=== PATIENT | male | born 1965 | race Two or more races ===

== ENCOUNTER 2024-01-29 11:28 | Inpatient (IN) | payer MEDICARE, MEDICAID, SELFPAY ==
[2024-01-29] VITALS (13 sets, daily range): BP systolic 137–171; BP diastolic 64–80; PULSE 59–71; RESP 14–90; TEMP 36.6–37.1; O2SAT 93–100; BMI 22.1
--- NOTE | 2024-01-29 11:29 | PC.NURSE ---
pt arrived by ambulance at 1128 with possible stroke with left facial droop and left arm drift per medic. Last normal at 0400 when pt went to dialysis. Also pt was c/o headache per medic.
--- NOTE | 2024-01-29 11:31 | PC.NURSE ---
teleneuologist on monitor to evaluate pt
--- NOTE | 2024-01-29 11:32 | EKG_ITS ---
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: : 1965 Requested By: Edwardo De Los Santos Order Number: [id number] Reading MD: Edwardo De Los Santos Measurements Intervals [place] Rate: 68 P: 43 WV: 179 QRS: -31 QRSD: 97 T: 103 QT: 442 QTc: 473 Interpretive Statements SINUS RHYTHM INDETERMINATE AXIS INCOMPLETE RIGHT BUNDLE BRANCH BLOCK [90+ ms QRS DURATION, TERMINAL R IN V1/V2, 40+ ms S IN I/aVL/V4/V5/V6] POSSIBLE ANTERIOR MYOCARDIAL INFARCTION , PROBABLY OLD [30 ms Q WAVE IN V3/V4, OR R < 0.2 mV IN V4] Compared to ECG 02/25/2022 12:22:05 Indeterminate axis now present Incomplete right bundle-branch block now present Left-axis deviation no longer present Myocardial infarct finding still present /store/S0/[id number]/ecg/[id number].pdf
--- NOTE | 2024-01-29 11:32 | PD.EDNEURO ---
Neuro Symptoms Deficit-RME/HPI General Chief Complaint: Neuro Symptoms/Deficit Stated Complaint: STROKE Time Seen by Provider: 01/29/24 11:33 Arrival date/time: 01/29/24 11:29 RME / HPI RME / HPI Narrative: 58 year old male with history of ESRD on HD M/W/F, CAD s/p CABG, CHF, hypertension, IDDM, hyperlipidemia, anemia in CKD presents to the ED BIBA from home for evaluation of headache and altered mental status today. Per medics, daughter on scene reported patient woke up and complained of a headache. States he went to dialysis and completed his treatment. Noted after arriving home from dialysis the patients headache worsened. Medics report when they arrived on scene the patient was more responsive, answering questions. However en route became altered. Also noted to have left facial droop and left arm drift. Prehospital B/P . Related Data Home Medications ?Medication ?Instructions ?Recorded ?Confirmed aspirin 81 mg tablet,delayed 81 mg PO QDAY 12/05/17 01/29/24 release (Kendrick Low Dose Aspirin) furosemide 40 mg tablet 40 mg PO BID 05/01/19 01/29/24 amlodipine 5 mg tablet 10 mg PO QDAY 07/05/20 01/29/24 carvedilol 12.5 mg tablet (Coreg) 12.5 mg PO BID 07/05/20 01/29/24 atorvastatin 40 mg tablet 40 mg PO HS 02/10/21 01/29/24 insulin regular human 100 unit/mL See Rx Instructions .Route .COMPLEX 02/10/21 01/29/24 injection solution (Humulin R Regular U-100 Insulin) metolazone 2.5 mg tablet 5 mg PO QDAY 02/10/21 01/29/24 clonidine HCl 0.1 mg tablet 0.1 mg PO BID 01/29/24 01/29/24 insulin detemir U-100 100 unit/mL 45 unit subcut HS 01/29/24 01/29/24 subcutaneous solution (Levemir U-100 Insulin) isosorbide mononitrate 30 mg 30 mg PO QDAY 01/29/24 01/29/24 tablet,extended release 24 hr losartan 100 mg tablet 100 mg PO QDAY 01/29/24 01/29/24 vitamin B complex-vitamin C-folic 1 tab PO QDAY 01/29/24 01/29/24 acid 0.8 mg tablet (Emmanuelle-Florian) Allergies Allergy/AdvReac Type Severity Reaction Status Date / Time Penicillins Allergy Severe RASH,DIFF. Verified 04/27/22 19:53 BREATHING Review of Systems Review of Systems ROS Unobtainable: unobtainable due to mental status Past Medical History Past Medical History NEUROLOGIC: Positive Neurological Disorders and Peripheral Neuropathy CARDIAC: Positive Cardiac Disorders, Myocardial Infarction, Hypercholesterolemia, Congestive Heart Failure, Edema and Hypertension RESPIRATORY: Positive Pulmonary Edema GASTROINTESTINAL: Positive Gastrointestinal Disorders and Gastroesophageal Reflux Disease GENITOURINARY: Positive Genitourinary Disorders and Renal Disease MUSCULOSKELETAL: Positive Musculoskeletal Disorders and Arthritis ENDOCRINE: Positive Endocrine Disorders and Diabetes Mellitus Type 2 HEMATOLOGIC: Positive Blood Disorders and Anemia OTHER HISTORY: Positive Chicken Pox Family History FAMILY HISTORY: Positive Family Cardiac Disorders and Family Surgery Surgical History SURGICAL: Positive Coronary Artery Bypass Graft, Eye Surgery and Abdominal Surgery Social History SMOKING STATUS: Never smoker SUBSTANCE USE: does not use ED Exam Narrative Physical exam: GENERAL APPEARANCE: Initial exam is limited, patient is not following commands. HEENT: NC, AT. MMM. EOMI, clear conjunctiva, oropharynx clear. NECK: Supple without lymphadenopathy. No stiffness or restricted ROM. HEART: Normal rate and regular rhythm, normal S1/S1, no m/r/g LUNGS: CTAB, moving air well. No crackles or wheezes are heard. ABDOMEN: Soft, nontender, nondistended with good bowel sounds heard. BACK: No midline C/T/L spine pain or deformity, No CVAT, no obvious deformity. EXTREMITIES: Without cyanosis, clubbing or edema. NEUROLOGICAL: Initial exam is limited, patient is not following commands. Tone in all 4 extremities, subtle left facial droop at the lateral labial area. On reassessment patient is awake, alert, answering questions. Skin: Warm and dry without any rash. Course Quality Measures Suspected type of Stroke: Non Acute Last known well (date): 01/29/24 Last known well (time): 07:42 Tenecteplase given: Reason(s) TPA not given: Outside the time window not given stroke Orders Category Date Time Status Bedside Blood Glucose NOW Care 01/29/24 11:32 Completed [employer] NOW Care 01/29/24 11:32 Completed Continuous Pulse Oximetry NOW Care 01/29/24 11:32 Completed EKG (ED ONLY) *Do not use* NOW Care 01/29/24 11:32 Completed In and Out Catheter NEEDED Care 01/29/24 11:32 Active Insert IV NOW Care 01/29/24 11:32 Completed NIH Stroke Scale now Care 01/29/24 11:32 Active NPO NOW Care 01/29/24 11:32 Completed Nurse Swallow Screen x1 Care 01/29/24 11:32 Completed guaiac [Occult Blood,Stool (Nursing)] NOW Care 01/29/24 11:59 Active Consult to Neurology / Tele-Neurology Routine Cons 01/29/24 11:[address] angio stroke protocol Stat Exams 01/29/24 11:[address] stroke protocol Stat Exams 01/29/24 11:32 Completed EKG (ED Only) Stat Exams 01/29/24 11:32 Draft Alcohol, Blood Medical Stat Lab 01/29/24 12:09 Completed Ammonia Stat Lab 01/29/24 12:09 Completed CBC Stat Lab 01/29/24 11:38 Completed Comprehensive Metabolic Panel Stat Lab 01/29/24 11:38 Completed Drug Screen,Urine Stat Lab 01/30/24 04:18 Completed HCG Titer if Positive Stat Lab 01/29/24 11:38 Completed Magnesium Stat Lab 01/29/24 11:38 Completed Partial Thromboplastin Time Stat Lab 01/29/24 11:38 Completed Prothrombin Time with INR Stat Lab 01/29/24 11:38 Completed Troponin I Stat Lab 01/29/24 11:38 Completed Urinalysis Stat Lab 01/30/24 04:18 Completed Urine Culture Stat Lab 01/30/24 04:18 Received Aspirin [Ecotrin] Med 01/29/24 13:44 Discontinued 81 mg PO X1 ONE Clopidogrel [Plavix] Med 01/29/24 13:44 Discontinued 75 mg PO X1 ONE Ondansetron Inj [Zofran Inj] Med 01/29/24 11:32 Active 4 mg IV Q4HR PRN Oxygen Delivery NOW RT 01/29/24 11:32 Active Reevaluation(s) Reevaluation #1: Patient is much more awake, alert, answering questions. Reports he still has a headache. The weakness persists on exam, L>R. Time: 13:10 Vital Signs Vital signs: Vital Signs Pulse Rate 70 01/29/24 11:35 Neuro Symptoms / Deficit MDM Narrative MDM Narrative:: IJazmyne, lizzie scribing for and in the presence of Dr. Tapia. Patient data External records reviewed:: [facility] previous records (I reviewed ED visit on 04/27/2022 for bleeding to his left AVF) Clinical information provided by:: EMS Social determinants that could affect healthcare access:: none Patient has the following chronic illnesses:: ESRD on HD M/W/F, CAD s/p CABG, CHF, hypertension, IDDM, hyperlipidemia, anemia in CKD How is presenting disease/condition affected by chronic disease/condition?: exacerbated by Evaluation data The following diagnostics were reviewed and interpreted by me:: lab results and radiology exam(s) Lab and/or radiology exams considered but not ordered:: None Interpretation Summary: Ordering Physician: Edwardo Coe NP Date of Service: 01/29/24 Procedure(s): CT stroke protocol Accession Number(s): [id number] cc: Edwardo Coe NP; Chad Elder MD~ Examination: CT brain head without contrast. 2-D sagittal coronal reconstructions Date and time of exam:January 29, 2024 1134 hours INDICATIONS: Stroke alert, onset focal neurologic deficit, onset headache with left arm numbness and left arm weakness this morning CTDI: vol (mGy):47.7 DLP: (mGycm):925 Technique: Multiple CT axial sections of the brain have been obtained, 5 mm slice thickness. Contrast has not been administered. 2-D sagittal, coronal reconstructions have been obtained Low dose protocols were performed. One or more of the following dose reduction techniques were used; automated exposure control, adjustment of the mA and/or KV according to patient size, use of iterative reconstruction technique. Findings: No significant ventricular enlargement. Intra-axial or extra-axial hemorrhage density is not seen. No mass effect or midline shift Basal cisterns are not remarkable. Fourth ventricle is midline. Cranial vault intact. Impression: Negative for acute hemorrhage, mass effect or midline shift As clinically warranted, brain MRI follow-up would best assess for acute ischemic change Dictated By:Chad Elder MD Signed By:<Electronically signed by Chad Elder MD in OV>01/29/24 1142 Ordering Physician: Tanner Franco DO Date of Service: 01/29/24 Procedure(s): CT angio stroke protocol Accession Number(s): [id number] cc: Tanner Franco DO; Chad Elder MD; Sanchez Hughes MD~ Examination: CTA carotids with intravenous contrast CTA brain, head with intravenous contrast. 2-D sagittal, coronal reconstructions. 3-D reconstructions. Exam date and time: January 29, 2024 1148 hours INDICATIONS: Stroke alert, onset headaches with left arm numbness in left arm weakness this morning CTDI: vol (mGy) 16.2 DLP: (mGycm) 399 Technique: Multiple CTA axial brain, head carotid images post intravenous contrast injection 75 cc, Isovue-370. 2-D sagittal, coronal reconstructions. 3-D reconstructions, 3-D post processing including vascular maximum intensity projection images. Low dose protocols were performed. One or more of the following dose reduction techniques were used; automated exposure control, adjustment of the mA and/or KV according to patient size, use of iterative reconstruction technique. Findings: Carotid calcification at the right carotid bifurcation but no significant common carotid carotid bifurcation or internal carotid artery stenoses Dominant left vertebral artery with no critical stenoses Anterior cerebral middle cerebral branches demonstrate no large vessel occlusions There is incomplete filling of the distal P1 segment left posterior cerebral artery, clinical correlation advised IMPRESSION: Neck arterial stenoses Incomplete filling of the distal P1 segment left posterior cerebral artery, clinical correlation advised Dictated By:Chad Elder MD Signed By:<Electronically signed by Chad Elder MD in OV>01/29/24 1301 Medications / Prescriptions Medications or Prescriptions considered but not ordered:: None Medication administrations:: Medication Administration History Acetaminophen (Acetaminophen 325 Mg Tablet) 650 mg PO Q6H PRN PRN Reason: Pain 1-3 and/or Fever >100.1 Stop: 02/28/24 14:22 Last Admin: 01/29/24 20:27 Dose: 650 mg Documented By: ALEIDA Aspirin (Aspirin Ec 81 Mg Tabec) 81 mg PO QDAY [facility] Stop: 02/29/24 08:59 Last Admin: 01/30/24 08:16 Dose: 81 mg Documented By: TM Atorvastatin Calcium (Atorvastatin Calcium 20 Mg Tablet) 80 mg PO [facility] Stop: 02/28/24 14:59 Last Admin: 01/29/24 20:27 Dose: 80 mg Documented By: NC Clopidogrel Bisulfate (Clopidogrel Bisulfate 75 Mg Tablet) 75 mg PO QDAY [facility] Stop: 02/29/24 08:59 Last Admin: 01/30/24 08:16 Dose: 75 mg Documented By: TM Dextrose (Dextrose 50%-Water Inj 50 Ml Syringe) 25 ml IV Q15MIN PRN PRN Reason: BG 50-70 responsive npo pt Stop: 02/28/24 14:22 Last Admin: 01/30/24 05:51 Dose: 25 ml Documented By: ALEIDA Dextrose (Dextrose 50%-Water Inj 50 Ml Syringe) 50 ml IV Q15MIN PRN PRN Reason: BG <50 OR BG <70 & pt unresponsive Stop: 02/28/24 14:22 Fluconazole (Fluconazole 100 Mg Tablet) 200 mg PO QDAY [facility] Stop: 02/05/24 15:19 Last Admin: 01/30/24 08:16 Dose: 200 mg Documented By: Admin: 01/29/24 19:38 Dose: 200 mg Documented By: ALEIDA Comments: per MD nicholas to give now Glucagon (Glucagon Inj 1 Mg Vial) 1 mg IM Q15MIN PRN PRN Reason: BG <70, and no IV access Heparin Sodium (Porcine) (Heparin Sod Inj 5000 Unit/Ml Vial) 5,000 unit SC Q12HR [facility] Stop: 02/12/24 20:59 Last Admin: 01/29/24 20:51 Dose: 5,000 unit Documented By: ALEIDA Co-signed By: CCT Insulin Glargine (Insulin Glargine (Lantus) 5 Unit/0.05 Ml (Per 5 Units)) 45 unit SC [facility] Stop: 02/29/24 20:59 Insulin Human Lispro (Insulin Lispro (Admelog) 1 Unit/0.01 Ml Unit) 0 unit SC [facility]; Protocol Stop: 02/28/24 20:59 Last Admin: 01/30/24 07:34 Dose: Not Given Documented By: TM Non-Admin Reason: Per Protocol Insulin Human Lispro (Insulin Lispro (Admelog) 1 Unit/0.01 Ml Unit) 6 unit SC ACHS [facility] Stop: 02/29/24 11:29 Labetalol HCl (Labetalol Inj 5 Mg/Ml Vial 20 Ml) 10 mg IVP Q4HR PRN PRN Reason: Systolic >220 Stop: 02/28/24 14:56 Ondansetron HCl (Ondansetron Inj 2 Mg/Ml Inj 2 Ml) 4 mg IV Q4HR PRN PRN Reason: NAUSEA OR VOMITING Stop: 02/28/24 11:31 Sennosides (Senna Tablet) 1 tab PO QDAY PRN; Protocol PRN Reason: constipation Stop: 02/28/24 14:22 Sevelamer Carbonate (Sevelamer Carbonate 800 Mg Tablet) 2,400 mg PO TIDWM [facility] Stop: 02/28/24 17:29 Last Admin: 01/30/24 08:15 Dose: 2,400 mg Documented By: Admin: 01/29/24 19:14 Dose: 2,400 mg Documented By: NS Discontinued Medications Aspirin (Aspirin Ec 81 Mg Tabec) 81 mg PO X1 ONE Stop: 01/29/24 13:45 Last Admin: 01/29/24 14:27 Dose: 81 mg Documented By: DO Atorvastatin Calcium (Atorvastatin Calcium 20 Mg Tablet) 80 mg PO QDAY [facility] Stop: 02/28/24 14:59 Clopidogrel Bisulfate (Clopidogrel Bisulfate 75 Mg Tablet) 75 mg PO X1 ONE Stop: 01/29/24 13:45 Last Admin: 01/29/24 14:27 Dose: 75 mg Documented By: DO Fluconazole (Fluconazole 100 Mg Tablet) 400 mg PO QDAY [facility] Stop: 02/05/24 14:59 Last Admin: 01/29/24 15:38 Dose: Not Given Documented By: DO Non-Admin Reason: Cancelled by Provider Insulin Glargine (Insulin Glargine (Lantus) 5 Unit/0.05 Ml (Per 5 Units)) 30 unit SC HS [facility] Stop: 02/28/24 20:59 Last Admin: 01/29/24 21:02 Dose: 30 unit Documented By: ALEIDA Co-signed By: MLD Insulin Human Lispro (Insulin Lispro (Admelog) 1 Unit/0.01 Ml Unit) 0 unit SC Q6HR [facility]; Protocol Stop: 02/28/24 17:59 Last Admin: 01/29/24 18:40 Dose: Not Given Documented By: RONDA Non-Admin Reason: Not In Room Insulin Human Lispro (Insulin Lispro (Admelog) 1 Unit/0.01 Ml Unit) 0 unit SC ACHS [facility]; Protocol Stop: 02/28/24 20:59 Last Admin: 01/29/24 21:00 Dose: Not Given Documented By: ALEIDA Non-Admin Reason: Per Insulin Human Lispro (Insulin Lispro (Admelog) 1 Unit/0.01 Ml Unit) 10 unit SC X1 ONE Stop: 01/29/24 23:46 Last Admin: 01/29/24 23:55 Dose: 10 unit Documented By: ALEIDA Co-signed By: RANDALL Insulin Human Lispro (Insulin Lispro (Admelog) 1 Unit/0.01 Ml Unit) 10 unit SC X1 ONE Stop: 01/30/24 01:41 Last Admin: 01/30/24 01:58 Dose: 10 unit Documented By: RANDALL Co-signed By: CANDELARIA Insulin Human Regular (Insulin Hum Regular 1 Unit/0.01 Ml (Per Unit)) 10 unit IV X1 ONE Stop: 01/29/24 20:39 Last Admin: 01/29/24 22:47 Dose: Not Given Documented By: ALEIDA Non-Admin Reason: per Pantoprazole Sodium (Pantoprazole Inj 40 Mg Vial) 40 mg IVP QDAY [facility] Stop: 02/29/24 08:59 Potassium Chloride (Potassium Chloride 20 Meq Tabcr) 40 meq PO X1 ONE Stop: 01/30/24 08:02 Last Admin: 01/30/24 08:27 Dose: 40 meq Documented By: ISAAC See above Consultations Consultation(s) initiated? (list below): Yes Consultation #1 (Physician, Specialty, Details): I spoke with teleneurologist Dr. Franco. States she spoke with the dialysis nurse who reported seeing the patient walk out of the dialysis clinic at 07:42 this morning. Time: 12:50 Consultation #2 (Physician, Specialty, Details): I spoke with resident Dr. Crystal working with Dr. Benitez regarding admission. Discussed patients PMHx, HPI, ED course, exam findings, labs, and radiology results. The hospitalist agree to accept the patient for admission. Time: 13:40 Diagnosis Neuro Differential Diagnosis: subarachnoid hemorrhage, cerebrovascular accident and transient cerebral ischemia Most likely diagnosis given after review of the tests above:: AMS ESRD Headache Admission Indicated Admission indicated?: indicated Admission Request Was there a request for admission?: Yes Admission Attestation Admission request attestation: Discussed case with [] from Hospitalist service regarding admission. Discussed patients ED course, exam findings, labs, and radiology results. The Hospitalist [agrees,declines] to accept the patient for admission. Disposition Plan Disposition Plan: Admit Critical Care Time Critical Care Time Critical Care Time: Yes Total Critical Care Time (min.): 45 Attestation: The high probability of sudden, clinically significant deterioration in the patient's condition required the highest level of my preparedness to intervene urgently. The services I provided to this patient were to treat and/or prevent clinically significant deterioration. Services included the following: chart data review, reviewing nursing notes and/or old charts, documentation time, bridal sales consultant collaboration regarding findings and treatment options, medication orders and management, direct patient care, vital sign assessments and ordering, interpreting and reviewing diagnostic studies and lab tests. Aggregate critical care time includes only time during which I was engaged in work directly related to the patient's care, as described above, whether at bedside or elsewhere in the Emergency Department. It did not include time spent performing other reported procedures or the services of residents, students, nurses or physician assistants. Discharge Plan Plan Patient Disposition: Admit Acute Care w/in Hospital Problem List Clinical Impression: Altered mental status, Headache, ESRD (end stage renal disease) MD Attestation MD Attestation The patient was seen by the midlevel practitioner. I, the co-signing physician, was present during the entire ER visit. While I did not physically examine the patient, I was available for consultation as needed.
--- NOTE | 2024-01-29 11:45 | XR_ITS ---
Examination: CTA carotids with intravenous contrast CTA brain, head with intravenous contrast. 2-D sagittal, coronal reconstructions. 3-D reconstructions. Exam date and time: January 29, 2024 1148 hours INDICATIONS: Stroke alert, onset headaches with left arm numbness in left arm weakness this morning CTDI: vol (mGy) 16.2 DLP: (mGycm) 399 Technique: Multiple CTA axial brain, head carotid images post intravenous contrast injection 75 cc, Isovue-370. 2-D sagittal, coronal reconstructions. 3-D reconstructions, 3-D post processing including vascular maximum intensity projection images. Low dose protocols were performed. One or more of the following dose reduction techniques were used; automated exposure control, adjustment of the mA and/or KV according to patient size, use of iterative reconstruction technique. Findings: Carotid calcification at the right carotid bifurcation but no significant common carotid carotid bifurcation or internal carotid artery stenoses Dominant left vertebral artery with no critical stenoses Anterior cerebral middle cerebral branches demonstrate no large vessel occlusions There is incomplete filling of the distal P1 segment left posterior cerebral artery, clinical correlation advised IMPRESSION: Neck arterial stenoses Incomplete filling of the distal P1 segment left posterior cerebral artery, clinical correlation advised
[2024-01-29 11:55] LABS: Basophils % (Auto) 1 % (0-2.5); Eosinophils # (Auto) 0.4 Thou/mm3 (0.0-0.5); Eosinophils % (Auto) 6 % (0-10); Hematocrit 28.5 % (41.0-53.0); Hemoglobin 9.6 g/dL (13.5-16.0); Immature Granulocytes % (Auto) 0 % (0-0); Immature Granulocytes Auto 0.02 Thou/mm3 (0.00-0.00); Lymphocytes # (Auto) 0.6 Thou/mm3 (1.0-4.8); Lymphocytes % (Auto) 8 % (10-50); Mean Corpuscular HGB Conc 33.7 g/dl (31.0-37.0); Mean Corpuscular Hemoglobin 32.4 pg (25.0-35.0); Mean Corpuscular Volume 96 fL (80-100); Monocytes # (Auto) 0.5 Thou/mm3 (0.0-0.8); Monocytes % (Auto) 6 % (0-12); Neutrophils # (Auto) 6.1 Thou/mm3 (1.8-7.7); Neutrophils % (Auto) 80 % (37-80); Nucleated Red Blood Cell % 0 /100 WBC (0); Platelet Count 107 Thou/mm3 (140-440); RDW Standard Deviation 62.4 fL (35.1-43.9); Red Blood Count 2.96 Miln/mm3 (4.50-5.90); White Blood Count 7.7 Thou/mm3 (3.8-10.6)
[2024-01-29 12:08] LABS: INR 1.2 (0.9-1.3); Partial Thromboplastin Time 29.4 Seconds (22.0-36.0); Prothrombin Time 12.5 Seconds (9.0-12.2)
--- NOTE | 2024-01-29 12:08 | PC.NURSE ---
Addendum entered by Mimi Singh RN 01/29/24 12:10: teleneurologist called dialysis nurse and asked how pt was while there. Told by nurse that pt left at 0742 and walked out normal. Original Note: teleneurologist called dialysis nurse to ask how pt was there. Told by nurse that pt left about 0745 and walked out
[2024-01-29 12:15] LABS: Alanine Aminotransferase 36 U/L (10-49); Albumin, Serum 4.1 gm/dL (3.5-5.0); Albumin/Globulin Ratio 1.4 (1.2-2.2); Alkaline Phosphatase 270 U/L (46-116); Anion Gap 8 (7-16); Aspartate Amino Transferase 37 U/L (0-34); BUN/Creatinine Ratio 5 Ratio (12-20); Bilirubin,Total 1.1 mg/dL (0.3-1.2); Blood Urea Nitrogen 15 mg/dL (9-23); Calcium 9.3 mg/dL (8.3-10.6); Calcium (Corrected) 9.3 mg/dL (8.5-10.1); Carbon Dioxide 30.5 mMol/L (20.0-31.0); Chloride 97 mMol/L (98-107); Creatinine (Component) 3.1 mg/dL (0.6-1.3); Estimated Creatinine Clearance 20.5 mL/min (>60); Glucose 333 mg/dL (74-106); Magnesium 2.4 mg/dL (1.6-2.6); Osmolality,Calculated 283 (275-295); Potassium 3.4 mMol/L (3.4-5.1); Sodium 135 mMol/L (136-145); Total Protein 7.1 gm/dL (5.7-8.2); Troponin I < 0.020 ng/mL (0.0-0.045); eGFR 23 See Note
[2024-01-29 12:20] LABS: HCG Titer if Positive Negative
[2024-01-29 12:43] LABS: Ammonia 21 uMol/L (11-32)
--- NOTE | 2024-01-29 12:44 | PC.NURSE ---
pt states that he is cold and is requesting warm blanket. warm blanket given to pt at this time.
--- NOTE | 2024-01-29 12:47 | PC.NURSE ---
informed pt that we need ua sample. pt states that he does make some urine. asked pt if we can do in and out cath if he is unable to give sample. pt refused stating that he will give sample when able
--- NOTE | 2024-01-29 12:50 | PD.TNEURO ---
Tele Neuro Consultation Consultation Date 01/29/24 Most Recent Vital Signs Last Vital Signs Temp 98.7 F 01/29/24 12:45 Pulse 71 01/29/24 12:04 Resp 14 01/29/24 12:04 BP 171/80 H 01/29/24 12:04 Pulse Ox 98 01/29/24 12:15 O2 Del Method Room Air 01/29/24 12:04 Laboratory-Coagulation Panel PT 12.5 Seconds (9.0-12.2) H 01/29/24 11:38 INR 1.2 (0.9-1.3) 01/29/24 11:38 APTT 29.4 Seconds (22.0-36.0) 01/29/24 11:38 Consultation Narrative [facility] Tele[facility]rology Consult [facility] Patient Name:???Alexei Brown Date of :???1965 Identification Number:??? Date of Service:???01/29/2024 11:24:10 Diagnosis:?I63.89 - Cerebrovascular accident (CVA) due to other mechanism ([facility]) Impression: ?58 yo male with history of HTN, HLD, DM, ESRD on dialysis presenting to the ED with Left sided weakness and altered level of consciousness, TLKW 0742 per rn dialysis. NIHSS 20, though somewhat improving. CT Head negative for acute findings. CTA personally reviewed and negative for obvious LVO, will follow-up formal read. Concern for possible acute stroke v toxic/metabolic etiologies. He is outside the time window for thrombolytics. Plan to start Plavix 75 mg and continue ASA 81 mg for at least 21 days of DAPT. Admit for MRI Brain wo and stroke workup. Permissive HTN. Infectious/metabolic workup per primary team. Our recommendations are outlined below. Recommendations: ? Stroke/Telemetry Floor ? Neuro Checks ? Bedside Swallow Eval ? DVT Prophylaxis ? IV Fluids, Normal Saline ? Head of Bed 30 Degrees ? Euglycemia and Avoid Hyperthermia (PRN Acetaminophen) ? Initiate dual antiplatelet therapy with Aspirin 81 mg daily and Clopidogrel 75 mg daily. ? Antihypertensives PRN if Blood pressure is greater than 220/120 or there is a concern for End organ damage/contraindications for permissive HTN. If blood pressure is greater than 220/120 give labetalol PO or IV or Vasotec IV with a goal of 15% reduction in BP during the first 24 hours. Sign Out: ? Discussed with Emergency Department Provider Advanced Imaging:CTA Head and Neck Completed. LVO:No Patient in not a candidate for LUDWIG Metrics: Last Known Well: 01/29/2024 07:42:00 Dispatch Time: 01/29/2024 11:24:09 Arrival Time: 01/29/2024 11:29:00 Initial Response Time: 01/29/2024 11:27:14Symptoms: Left sided weakness, speech changes. Initial patient interaction: 01/29/2024 11:30:27 NIHSS Assessment Completed: 01/29/2024 11:43:23Patient is not a candidate for Thrombolytic. Thrombolytic Medical Decision: 01/29/2024 12:12:04Patient was not deemed candidate for Thrombolytic because of following reasons: LKW outside 4.[address] head showed no acute hemorrhage or acute core infarct. Primary Provider Notified of Diagnostic Impression and Management Plan on: 01/29/2024 12:50:17 History of Present Illness:Patient is a 58 year old Male. Patient was brought by EMS for symptoms of Left sided weakness, speech changes. Patient went to dialysis from [id number]. Daughter reports that he started to act like he wasn't present also unable to speak in complete sentences when she first saw him after he came back from dialysis at 0930. He looked very pale. Called to speak to his rn dialysis for additional history. Was speaking with nurse mid-treatment and seemed normal. He walked out of the dialysis center at 0742 and did not seem to have any difficulty. ? Past Medical History: ?Hypertension ?Diabetes Mellitus ?Hyperlipidemia Other PMH:? ESRD on dialysis Medications: No Anticoagulant use? Antiplatelet use:?Yes?ASA 81 mg Reviewed EMR for current medications Allergies:? Reviewed Social History: Unable To Obtain Due To Patient Status :?Patient Is Confused Family History: There is no family history of premature cerebrovascular disease pertinent to this consultation ROS : 14 Points Review of Systems was performed and was negative except mentioned in HPI. Past Surgical History: There Is No Surgical History Contributory To Today?s Visit ? Examination: BP(177/87),?Pulse(77),?Blood Glucose(327) 1A: Level of Consciousness - Arouses to minor stimulation?+ 1 1B: Ask Month and Age - Could Not Answer Either Question Correctly?+ 2 1C: Blink Eyes & Squeeze Hands - Performs Both Tasks?+ 0 2: Test Horizontal Extraocular Movements - Normal?+ 0 3: Test Visual Britton - No Visual Loss?+ 0 4: Test Facial Palsy (Use Grimace if Obtunded) - Partial paralysis (lower face)?+ 2 5A: Test Left Arm Motor Drift - No Effort Against Sunset?+ 3 5B: Test Right Arm Motor Drift - Drift, but doesn't hit bed?+ 1 6A: Test Left Leg Motor Drift - No Effort Against Sunset?+ 3 6B: Test Right Leg Motor Drift - No Effort Against Sunset?+ 3 7: Test Limb Ataxia (FNF/Heel-Almodovar) - Does Not Understand?+ 0 8: Test Sensation - Normal; No sensory loss?+ 0 9: Test Language/Aphasia - Mute/Global Aphasia: No Usable Speech/Auditory Comprehension?+ 3 10: Test Dysarthria - Mute/Anarthric?+ 2 11: Test Extinction/Inattention - No abnormality?+ 0 NIHSS Score:?20 Pre-Morbid Modified Amelia Scale:0 Points = No symptoms at all Spoke with :?Dr. Tapia This consult was conducted in real time using interactive audio and video technology. Patient was informed of the technology being used for this visit and agreed to proceed. Patient located in hospital and provider located at home/office setting. Patient is being evaluated for possible acute neurologic impairment and high probability of imminent or life-threatening deterioration. I spent total of 60 minutes providing care to this patient, including time for face to face visit via telemedicine, review of medical records, imaging studies and discussion of findings with providers, the patient and/or family. Dr Tanner Franco [facility] For Inpatient follow-up with [facility] physician please call [facility] at . As we are not an outpatient service for any post hospital discharge needs please contact the hospital for assistance. If you have any questions for the [facility] physicians or need to reconsult for clinical or diagnostic changes please contact us via [facility] at .
[2024-01-29 12:58] LABS: Alcohol, Blood Medical < 3.0 mg/dL (0-10.0)
--- NOTE | 2024-01-29 14:23 | ECHO_ITS ---
Transthoracic Echo Report Ht (in): 62 Wt (lb): 121 Exam Location: ER Status: Emergency Funeral Counselor: Alice Colón Indications: Procedure Performed: BP: 161 / 79 HR: 63 Rhythm: Sinus Technical Quality: Fair Contrast: Agitated Saline Total Dose (mL): MEASUREMENTS (Male / Female) Normal Values 2D ECHO LV Diastolic Diameter PLAX 5.3 cm 4.2 - 5.9 / 3.9 - 5.3 cm LV Systolic Diameter PLAX 3.3 cm IVS Diastolic Thickness 1.1 cm 0.6 - 1.0 / 0.6 - 0.9 cm LVPW Diastolic Thickness 1.1 cm 0.6 - 1.0 / 0.6 - 0.9 cm LV Relative Wall Thickness 0.4 LVOT Diameter 1.9 cm LA Volume Index 45.0 cm?/m? 16 - 28 cm?/m? Ascending Aorta Diameter 3.1 cm M-MODE Aortic Root Diameter MM 3.5 cm LA Systolic Diameter MM 4.3 cm LA Ao Ratio MM 1.2 AV Cusp Separation MM 2.4 cm DOPPLER AV Peak Velocity 200.0 cm/s AV Peak Gradient 16.0 mmHg AV Mean Gradient 7.0 mmHg AV Velocity Time Integral 43.3 cm LVOT Peak Velocity 145.0 cm/s LVOT Peak Gradient 8.4 mmHg LVOT Velocity Time Integral 27.5 cm LVOT Cardiac Index 3161.1 cm?/min?m? AV Area Cont Eq vti 1.8 cm? AV Area Cont Eq pk 2.1 cm? MV Peak Velocity 192.0 cm/s MV Peak Gradient 14.7 mmHg MV Mean Velocity 84.5 cm/s MV Mean Gradient 4.0 mmHg MV Area PHT 3.4 cm? MR Peak Velocity 384.0 cm/s MR Peak Gradient 59.0 mmHg Mitral E Point Velocity 159.0 cm/s Mitral A Point Velocity 62.0 cm/s Mitral E to A Ratio 2.6 LV E' Lateral Velocity 8.6 cm/s Mitral E to LV E' Lateral Ratio 18.5 LV E' Septal Velocity 4.5 cm/s Mitral E to LV E' Septal Ratio 35.7 TR Peak Velocity 326.0 cm/s TR Peak Gradient 42.5 mmHg FINDINGS Left Ventricle Normal left ventricular size, systolic function with no obvious regional wall motion abnormalities. Mild LVH. The ejection fraction is visually estimated at 60-65%. Right Ventricle The right ventricle is mildly dilated. Mild systolic dysfunction. The estimated right ventricular s ystolic pressure, 68mmHg. RAP 15. Left Atrium The left atrium is mildly dilated. Right Atrium The right atrium is moderately dilated. Atrial Septum An intravenous agitated saline injection indicated a PFO across the atrial septum with Valsalva rele ase by color flow Doppler interrogation. Aorta The aorta is normal by two-dimensional, color flow and Doppler interrogation. Mitral Valve The mitral valve is normal by two-dimensional, color flow and Doppler interrogation. There is mild m itral valve regurgitation. Aortic Valve The aortic valve is trileaflet and normal by two-dimensional, color flow and Doppler interrogation. There is trace aortic valve regurgitation. Tricuspid Valve The tricuspid valve is normal by two-dimensional, color flow and Doppler interrogation. There is mil d tricuspid valve regurgitation. Pulmonic Valve There is mild pulmonic valve regurgitation. Vessels The pulmonary artery appears normal. The inferior vena cava pulmonary and hepatic veins appear dilat ed. Pericardium The pericardium is normal by two-dimensional imaging. There is no significant pericardial effusion. CONCLUSIONS Indication: Stroke Positive bubble study with bubbles appearing after 5th cycle indicating possibe pulmonary AV shunt. Cannot rule out a PFO based on the study and recommend LINDA if high index of clinical suspicion. Normal LV size and function. Mild LVH. Grade II diastolic dysfunction. Estimated EF 60-65% Moderate Rv and RA dilatation. Estimated RVSP 68mmHg. Moderate to severe PAH. Mild LA dilatation. Mild MR, TR, PI. Trace AI. IVC dilated. Heath Hawkins (Electronically Signed) Final Date: 29 January 2024 17:26
[2024-01-29] MEDS: CLOPIDOGREL BISULFATE 75 MG TABLET PO (14:27)
[2024-01-29] MEDS: ASPIRIN EC 81 MG TABEC PO (14:27)
--- NOTE | 2024-01-29 14:29 | XR_ITS ---
Examination: Carotid arterial duplex scan, ultrasound. Date and time of exam: January 29, 2024 1815 hours INDICATIONS: Dizziness headaches numbness in the arms today Technique: Multiple sonographic images have been obtained of the carotid arteries and vertebral arteries, B-mode/grayscale imaging and Doppler spectral analysis and color flow Peak systolic and diastolic velocities have been recorded. Systolic diastolic ratios have been calculated. Findings: Right peak systolic velocities: Distal internal carotid artery peak systolic velocity is 0.8 M/sec Proximal internal carotid artery peak systolic velocity is 0.8 M/sec Carotid bifurcation peak systolic velocity is 0.8 M/sec External carotid artery peak systolic velocity is 1.0 M/sec Vertebral artery flow is antegrade. Left peak systolic velocities: Distal internal carotid artery peak systolic velocity is 0.5 M/sec Proximal internal carotid artery peak systolic velocity is 0.9 M/sec Carotid bifurcation peak systolic velocity is 1.2 M/sec External carotid artery peak systolic velocity is 1.1 M/sec Vertebral artery flow is antegrade Doppler waveform analysis demonstrates no spectral broadening Impression: Right internal carotid artery demonstrates 0-10% stenosis. Left internal carotid artery demonstrates 0-10% stenosis.
--- NOTE | 2024-01-29 14:35 | ESHP_ITS ---
<Statement entered by Gin Crystal MD - 01/30/24 18:00> Patient is a 58 y.o male w/ PMHx significant for CAD s/p CABG, CHF, ESRD on HD (MWF), HTN, insulin dependent DM, HLD who presented to the ED with acute confusion and headache and admitted for acute metabolic encepahlapathy vs stroke r/o. Patient states he woke up this AM at 3AM with a h/a which is consistent with his symptoms on dilaysis days, however, throughout the dialysis, patient's h/a worsened and felt out of it. Patient's family members noted he was not himself and confused and decided to call EMS to bring him to the ED. NIHSS per neurology was 20, and recommended full stroke w/o. Patient will be on Asa, Plavix, pending MRI wo contrast, Echo with bubble, speech and PT eval. 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 Patient will be started on a renal dose of Fluconozole. Will also consult Dr. Nguyen, for patient's ESRD. I discussed with and supervised the research program internship physician who took care of this patient. I personally saw and examined the patient and discussed the assessment and plan with the entire medicine team, including my attending , I agree with most of the assessment and plan as documented below Gin Crystal M.D. PGY-2 Documentation for date of: 01/29/24 HPI History of Present Illness Chief complaint: Headache, weakness History of present illness: 58-year-old male with past medical history of coronary artery disease s/p CABG (May 05, 2021), CHF, ESRD on HD (M/W/F), hypertension, insulin-dependent diabetes (unsure whether type I or type II), hyperlipidemia presents to the ED on 01/28 with acute change in mentation and worsening headache. Patient states that he went to dialysis session this morning around 4 AM and prior to the session he was having some headache near the back of his head. Patient completed dialysis session around 4.3 L of ultrafiltration and following the session went home and took his medications. At that point, patient started to feel worsening headache along with weakness and he ambulated out of his house to his ex-'s house which is on the same property and notified his daughter and ex- that he was not feeling well. Patient was then rushed to the ED where he presents now. Of note, patient had been to dialysis on Friday 01/26 and had additional fluid removed due to being told that he was volume overloaded on his last Thursday 01/25 session. Patient follows up with [facility] transplant center for kidney transplant; moreover, he has been told that he has cocci/fungal infection of the lungs along with a left-sided pulmonary nodule which will be biopsied on February 06, 2024 his next appointment. Medical history: As listed above Surgical history: 4X CABG Medications: Atorvastatin 40, clonidine 0.1 twice daily, losartan 100 daily, amlodipine 10 daily, carvedilol 12.5 twice daily, furosemide 40 twice daily, metolazone 5 daily, isosorbide mononitrate 30 daily, sevelamer 803 tablets 3 times daily and on insulin 45 units subcu daily Basaglar Allergies: Penicillin causes difficulty in breathing and rash Family history: Patient has extensive family history of heart disease, mother and father in their 70s from [place], uncle with [place], cousin with [place] and maternal side of family all have diabetes. Patient's brother also has ESRD but is status post transplant about 2 months ago secondary to diabetic nephropathy Social history: Patient lives in [place], lives in a subunit housing on the same property as his ex-, denies smoking, drinking or using any illicit drugs ROS: All 12 systems assessed and the patient denies unless otherwise stated in the HPI In the ED, patient presented hypertensive blood pressure 171/80 but rest of vitals normal. Pertinent lab findings included hemoglobin 9.6 (MCV 96), BUN 15, creatinine 3.1, glucose 333, elevated alk phos 278, troponin negative, urine alcohol negative. NIHSS score was 20, Head CT was negative for any acute process, head and neck CTA showed incomplete filling in the distal P1 segment of left posterior cerebellar artery and some neck arterial sclerosis. Patient will be admitted to the hospitalist team for stroke rule out versus metabolic encephalopathy; neurologist and yard supervisor cotton gin have been consulted to follow patient during hospital stay. Exam Vital Signs Temp Pulse Resp BP Pulse Ox O2 Del Method O2 Flow Rate 98.2 F 63 19 161/79 H 95 Nasal Cannula 2 01/29/24 13:12 01/29/24 13:12 01/29/24 13:12 01/29/24 13:12 01/29/24 13:12 01/29/24 13:12 01/29/24 13:12 Narrative Exam Physical Exam: GENERAL: Awake, answering questions appropriately, appears stated age HEENT: NC/AT. Moist mucosa. PERRLA. Extraocular movements intact but slow CARDIO: Heart RRR, no obvious murmurs, no JVD. PULM: No coughing or visible SOB. Lungs CTA B/L. GI: Abdomen soft, NT/ND, +BS. SKIN/MSK/EXT: Left brachiocephalic AV fistula patent. No wounds/discoloration/rashes/edema/amputations. +Pedal pulses present B/L. NEURO: Oriented x3, cranial nerves II to XII intact, muscle strength 3 out of 5 bilateral upper and lower extremities, air traffic control supervisor strength 3 out of 5, pronator drift negative, completed [id number], no focal neurologic deficit Results: Labs 01/29/24 11:38 01/29/24 11:38 Labs: Short CBC 01/29/24 Range/Units 11:38 WBC 7.7 (3.8-10.6) Thou/mm3 Hgb 9.6 L (13.5-16.0) g/dL Hct 28.5 L (41.0-53.0) % Plt Count 107 L (140-440) Thou/mm3 BMP 01/29/24 11:38 Sodium 135 L Potassium 3.4 Chloride 97 L Carbon Dioxide 30.5 BUN 15 Creatinine 3.1 H Glucose 333 H Calcium 9.3 Cardiac Enzymes 01/29/24 Range/Units 11:38 Troponin I < 0.020 (0.0-0.045) ng/mL Liver Function 01/29/24 Range/Units 11:38 Total Bilirubin 1.1 (0.3-1.2) mg/dL AST 37 H (0-34) U/L ALT 36 (10-49) U/L Alkaline Phosphatase 270 H (46-116) U/L Albumin 4.1 (3.5-5.0) gm/dL Quality Measures Quality Measures stroke Suspected type of Stroke: Non Acute Last known well (date): 01/29/24 Last known well (time): 07:42 Tenecteplase given: Reason(s) Tenecteplase not given: Outside the time window not given Rehab services: PT evaluation ordered VTE Prophylaxis: pharmaceutical Antithrombotic by day 2:: not indicated (describe) (Stroke has not been confirmed at this point, MR stroke protocol ordered) Statin ordered: <75 y/o high intensity dose Anticoagulation ordered for A-fib or flutter (current or hx): not indicated Medications Home Medications and Allergies Home Medications ?Medication ?Instructions ?Recorded ?Confirmed ?Type aspirin 81 mg tablet,delayed 81 mg PO QDAY 12/05/17 02/11/21 History release (Kendrick Low Dose Aspirin) insulin glargine 100 unit/mL (3 45 unit subcut QDAY 12/05/17 02/11/21 History mL) subcutaneous pen (Basaglar KwikPen U-100 Insulin) furosemide 40 mg tablet 40 mg PO BID 05/01/19 02/11/21 History amlodipine 5 mg tablet 10 mg PO QDAY 07/05/20 02/11/21 History calcium acetate 667 mg tablet 667 mg PO TID 07/05/20 02/11/21 History carvedilol 12.5 mg tablet (Coreg) 12.5 mg PO BID 07/05/20 02/11/21 History atorvastatin 40 mg tablet 40 mg PO HS 02/10/21 02/11/21 History insulin regular human 100 unit/mL See Rx Instructions .Route .COMPLEX 02/10/21 02/11/21 History injection solution (Humulin R Regular U-100 Insulin) metolazone 2.5 mg tablet 2.5 mg PO QDAY 02/10/21 02/11/21 History Allergies Allergy/AdvReac Type Severity Reaction Status Date / Time Penicillins Allergy Severe RASH,DIFF. Verified 04/27/22 19:53 BREATHING Visit Medications Acetaminophen (Acetaminophen 325 Mg Tablet) 650 mg PO Q6H PRN PRN Reason: Pain 1-3 and/or Fever >100.1 Stop: 02/28/24 14:22 Aspirin (Aspirin Ec 81 Mg Tabec) 81 mg PO QDAY SWATHI Stop: 02/29/24 08:59 Atorvastatin Calcium (Atorvastatin Calcium 20 Mg Tablet) 80 mg PO HS SWATHI Stop: 02/28/24 14:59 Dextrose (Dextrose 50%-Water Inj 50 Ml Syringe) 25 ml IV Q15MIN PRN PRN Reason: BG 50-70 responsive npo pt Stop: 02/28/24 14:22 Dextrose (Dextrose 50%-Water Inj 50 Ml Syringe) 50 ml IV Q15MIN PRN PRN Reason: BG <50 OR BG <70 & pt unresponsive Stop: 02/28/24 14:22 Glucagon (Glucagon Inj 1 Mg Vial) 1 mg IM Q15MIN PRN PRN Reason: BG <70, and no IV access Heparin Sodium (Porcine) (Heparin Sod Inj 5000 Unit/Ml Vial) 5,000 unit SC Q12HR SWATHI Stop: 02/12/24 20:59 Insulin Human Lispro (Insulin Lispro (Admelog) 1 Unit/0.01 Ml Unit) 0 unit SC Q6HR SWATHI; Protocol Stop: 02/28/24 17:59 Ondansetron HCl (Ondansetron Inj 2 Mg/Ml Inj 2 Ml) 4 mg IV Q4HR PRN PRN Reason: NAUSEA OR VOMITING Stop: 02/28/24 11:31 Pantoprazole Sodium (Pantoprazole Inj 40 Mg Vial) 40 mg IVP QDAY SWATHI Stop: 02/29/24 08:59 Sennosides (Senna Tablet) 1 tab PO QDAY PRN; Protocol PRN Reason: constipation Stop: 02/28/24 14:22 Discontinued Medications Aspirin (Aspirin Ec 81 Mg Tabec) 81 mg PO X1 ONE Stop: 01/29/24 13:45 Last Admin: 01/29/24 14:27 Dose: 81 mg Atorvastatin Calcium (Atorvastatin Calcium 20 Mg Tablet) 80 mg PO QDAY SWATHI Stop: 02/28/24 14:59 Clopidogrel Bisulfate (Clopidogrel Bisulfate 75 Mg Tablet) 75 mg PO X1 ONE Stop: 01/29/24 13:45 Last Admin: 01/29/24 14:27 Dose: 75 mg Assessment & Plan Plan 58-year-old male with past medical history of coronary artery disease s/p CABG (May 05, 2021), CHF, ESRD on HD (M/W/F), hypertension, insulin-dependent diabetes (unsure whether type I or type II), hyperlipidemia presents with acute change in mentation and worsening headache will be admitted to the hospitalist team for stroke rule out versus metabolic encephalopathy; neurologist and yard supervisor cotton gin have been consulted to follow patient during hospital stay. #Acute encephalopathy #Possible CVA versus TIA versus metabolic encephalopathy Patient presents with worsening headache in the back of his head along with weakness; did not lose consciousness per HPI The symptoms began before dialysis session at 4 AM and progressively worsened Per patient, he was able to ambulate out of his housing unit to get to his ex- 's house and notify them that he was feeling weak and had worsening headache In the ED, NIHSS score was 20 [address] head was negative CTA of head and neck showed incomplete filling of the distal P1 segment of the left posterior cerebral artery and neck arterial sclerosis Teleneurology was consulted and provided the recommendations Plan: MRI brain without contrast Echo with bubble study Aspirin and Plavix daily Ultrasound carotid Neurology, Dr. Crystal consulted appreciate recommendations Every 2 hour neurochecks Head of bed greater than 30 degrees Speech eval pending PT eval pending Permissive hypertension with as needed labetalol 10 mg #Coccidiomycosis infection #Possible left lung mass Patient apparently was told that he has coccidiomycosis also a left lobe nodule was noted during his appointment with [facility] transplant [facility] Plan: Start fluconazole 200 mg as the patient is ESRD Patient will need to follow-up with his appointment on February 05 with [facility] [place] #ESRD on HD (M/W/F) Patient has been on dialysis for about 3 years now; March 2021 start date Patient states that usually they take about 2.5 L of ultrafiltration per session Of note, patient went to dialysis on Friday 01/26 as on the 01/25 session did not take off enough fluid On 01/28 (today) they took out 4.3 L ultrafiltration per patient Patient follows up with Dr. Nguyen, nephrology Patient also apparently follows up with [facility]; next appointment is on February 05 as stated above Plan: Consulted Dr. Nguyen, appreciate recommendations Will continue sevelamer 800 mg 3 tablets 3 times daily Premeal #History of coronary artery disease s/p CABG #Hyperlipidemia #History of congestive heart failure Patient with significant history of coronary artery disease, CABG on May 05, [address] Saldana in [place], cardiology Patient is on guideline based medical therapy for congestive heart failure; losartan, carvedilol, isosorbide mononitrate Patient also takes atorvastatin 40 mg daily Plan: TTE with bubble study for stroke rule out will give us an idea of his ejection fraction Lipid panel in the morning Will assess ASCVD score #Hypertension Patient has known history of hypertension Takes the medications highlighted above along with clonidine 0.1 twice daily, amlodipine 10 mg daily, Lasix 40 mg twice daily Plan: Permissive hypertension as stated above We will hold home antihypertensive medications at this time #Insulin-dependent diabetes Patient was apparently diagnosed in his 30s and was started on insulin right away Unsure if this is type I versus type 2 diabetes mellitus Patient apparently takes 45 units of insulin Basaglar Plan: Sliding scale insulin Follow-up with A1c in the morning Hospital Management: Lines: PIV Bowel: Senna as needed Diet: Renal GI prophylaxis: Not required DVT prophylaxis: Heparin subcu Dispo: Stroke rule out pending imaging studies, MRI brain and TTE with bubble studies Code: DNR Patient seen and examined with attending Dr. Benitez and senior resident Dr. Marah Coppola, PGY-1 Attending Provider Attestation/Addendum I have examined the patient, reviewed labs and imaging findings, discussed the case with the resident(s), and reviewed entered orders. I agree with the plan of care as outlined in this note, with these additional summaries/recommendations: Patient is a 58-year-old male with a medical history of end-stage renal disease on hemodialysis Monday, primary hypertension, hyperlipidemia, diabetes mellitus type 2, pulmonary nodule, and valley fever who presents to [facility] emergency department on 01/29/2024 with strokelike symptoms. Patient admitted for CVA rule out # Strokelike symptoms # CVA rule out Was deemed not a tPA candidate and NIH SS score of [address] was negative for acute hemorrhage, mass effect or midline shift CTA H&N did not reveal LVO but was significant for incomplete filling of the distal P1 segment left posterior cerebral artery Teleneurology was consulted, recommends admission for CVA rule out Risk factor screening with TSH, lipid panel, and A1c Order MRI brain, echocardiogram with bubble, PT eval, and swallow evaluation Consult in-house neurology, recommendations appreciated Start dual antiplatelet therapy with aspirin and clopidogrel, start high intensity statin Order EEG Allow permissive hypertension for first 24 hours up to systolic blood pressure of 220 # End-stage renal disease On hemodialysis Monday Avoid nephrotoxic agents and renally dose medications Per patient currently on transplant list Consult nephrology Dr. Nguyen to resume hemodialysis while hospitalized # Primary hypertension: Resume home antihypertensives after permissive hypertension # Diabetes mellitus type 2: A1c ordered. Start basal bolus insulin. Target blood sugar of 140-180 while hospitalized # coccidioidomycosis:Resume fluconazole [address] Benitez
--- NOTE | 2024-01-29 16:06 | PC.NURSE ---
report allen [place] on tele floor. pt to go to room 260
--- NOTE | 2024-01-29 18:06 | PC.CC ---
[employer] approached by asset management coordinator, to assist in locating contact information for pts family to consent for treatment. Pt Alexei Brown is a 58 yr old male to ED for possible stroke. Upon review of pts historical documentation, there is no information for family listed. Pts ex Marion Brown is identified as person to notify on pts chart, no answer per staff. Pt is on dialysis. [id number] [facility] spoke with Rajni with [facility]-pt is not a pt of that dialysis site.
--- NOTE | 2024-01-29 18:34 | ESCONSULT_ITS ---
HPI Data of Consult Patient: new to practice Consult date: 01/29/24 Requesting Physician: Joshua Benitez MD Admitting Provider: Joshua Benitez MD Attending Provider: Joshua Benitez MD Primary Care Provider: Sanchez Hughes MD Consult Narrative Reason for consult: LINDA, Possible AV shunt History of present illness: HISTORY OF PRESENT ILLNESS : 58-year-old male with past medical history of coronary artery disease s/p 4 vessel CABG (May 05, 2021 in [place]), chronic diastolic CHF [60-65] ESRD on HD (M/W/F), essential hypertension, insulin-dependent diabetes (unsure whether type I or type II), hyperlipidemia presents to the ED on 01/28 with acute change in mentation and worsening headache. Patient states that he went to dialysis session this morning around 4 AM and prior to the session he was having some headache near the back of his head. Patient completed dialysis session around 4.3 L of ultrafiltration and following the session went home and took his medications. At that point, patient started to feel worsening headache along with weakness and he ambulated out of his house to his ex-'s house which is on the same property and notified his daughter and ex- that he was not feeling well. Patient was then rushed to the ED where he presents now. Patient denies any chest pain but endorses intermittent shortness of breath. Patient also has a 3 pillow orthopnea with PND. Patient says he had a stress test 1 month ago and reports that it was normal. Of note, patient had been to dialysis on Friday 01/26 and had additional fluid removed due to being told that he was volume overloaded on his last Thursday 01/25 session. Patient follows up with [facility] transplant center for kidney transplant; moreover, he has been told that he has cocci/fungal infection of the lungs along with a left-sided pulmonary nodule which will be biopsied on February 06, 2024 his next appointment. Transthoracic echocardiogram completed on 01/28 findings include: Positive bubble study with bubbles appearing after 5th cycle indicating possibe pulmonary AV shunt. Cannot rule out a PFO based on the study and recommend LINDA if high index of clinical suspicion. Normal LV size and function. Mild LVH. Grade II diastolic dysfunction. Estimated EF 60-65% Moderate Rv and RA dilatation. Estimated RVSP 68mmHg. Moderate to severe PAH. Mild LA dilatation. Mild MR, TR, PI. Trace AI. IVC dilated. ED course: BP 170/80, labs significant for Hb 9.6, BUN 15, CR 3.1, ALP 278, troponin negative. Head CT was negative for any hemorrhage, mass effect or midline shift, head and neck CTA showed incomplete filling in the distal P1 segment of left [employer] with some neck arterial sclerosis. Patient was admitted for stroke rule out versus metabolic encephalopathy. Cardiology was consulted for moderate to severe PAH along with positive bubble study. HOME MEDICATIONS: ? Amlodipine 10 Mg p.o. daily ? ASA 81 Mg p.o. daily ? Atorvastatin 40 Mg p.o. at bedtime ? B complex vitamin ? Coreg 12.5 Mg p.o. twice daily ? Clonidine 0.1 mg p.o. twice daily ? Furosemide 40 Mg p.o. twice daily ? Insulin - Detemir 45 units SC at bedtime ? Insulin HR ? Isosorbide mononitrate 30 Mg p.o. daily ? Losartan 100 Mg p.o. daily ? Metolazone 5 Mg p.o. daily cc:: cc: Joshua Benitez MD Review of Systems Review of Systems Narrative Review of Systems: GENERAL: Denies fever/chills or diaphoresis. HEENT: Denies headaches or visual changes. Denies discharge. Neuro: Denies unusual weakness or difficulty speaking. CARDIO:as above PULM: as above GI: Denies abdominal pain, N/V/C/D. Reports having BMs. URO: Denies buring/itching/pain/urinary changes. MSK/EXT/SKIN: Denies joint/skeletal/muschle pain, issues/changes in upper or lower extremities, itchiness, or superficial pain. PSYCH: Cooperative, pleasant mood & affect. The rest of the review of systems is otherwise negative. Past Medical History Past Medical History Comments PMH COMMENT: Past medical history: ? CAD s/p four-vessel CABG ? Chronic systolic congestive heart failure [60-65%] ? ESRD on HD ? Essential hypertension ? IDDM ? 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 QUit years ago Illicit drug use: Denies Social History Note: lives with Family History: Father- [place] at 75 Mother - stroke at 75 Exam Vital Signs Temp Pulse Resp BP Pulse Ox O2 Del Method O2 Flow Rate 98.0 F 61 18 145/70 H 95 Nasal Cannula 3 01/29/24 16:42 01/29/24 16:42 01/29/24 16:42 01/29/24 16:42 01/29/24 16:42 01/29/24 16:42 01/29/24 16:42 Narrative Exam Constitutional Alert, oriented x 3 and comfortable. Young male HEENT Vision grossly intact. Patent nares. Trachea midline Respiratory Midline sternotomy scar noted and decreased AE b/l Cardiovascular S1 and S2 audible, RRR. 3/6 systolic murmur at apex with radiation to axilla, no carotid bruit. JVD not assessed Abdominal Tense, distended and non tender to palpation in all quadrants. Umbilicus everted, BS + Genitourinary No bladder tenderness, no flank pain. Normal to palpation Musculoskeletal Extremities tone within normal limits. No LE edema. Neurological CN II - XII grossly intact. Extremity motor and sensation grossly intact. Skin Warm, dry and intact. Left brachiocephalic fistula Psychiatric Patient has good affect, is cooperative Results Labs 01/29/24 11:38 01/29/24 11:38 Labs: Short CBC 01/29/24 Range/Units 11:38 WBC 7.7 (3.8-10.6) Thou/mm3 Hgb 9.6 L (13.5-16.0) g/dL Hct 28.5 L (41.0-53.0) % Plt Count 107 L (140-440) Thou/mm3 BMP 01/29/24 11:38 Sodium 135 L Potassium 3.4 Chloride 97 L Carbon Dioxide 30.5 BUN 15 Creatinine 3.1 H Glucose 333 H Calcium 9.3 Cardiac Enzymes 01/29/24 Range/Units 11:38 Troponin I < 0.020 (0.0-0.045) ng/mL Liver Function 01/29/24 Range/Units 11:38 Total Bilirubin 1.1 (0.3-1.2) mg/dL AST 37 H (0-34) U/L ALT 36 (10-49) U/L Alkaline Phosphatase 270 H (46-116) U/L Albumin 4.1 (3.5-5.0) gm/dL Quality Measures Quality Measures stroke Suspected type of Stroke: Non Acute Last known well (date): 01/29/24 Last known well (time): 07:42 Tenecteplase given: Reason(s) Tenecteplase not given: Outside the time window not given Rehab services: PT evaluation ordered VTE Prophylaxis: not indicated Antithrombotic by day 2:: ordered Statin ordered: <75 y/o high intensity dose Anticoagulation ordered for A-fib or flutter (current or hx): not indicated Medications Home Medications and Allergies Home Medications ?Medication ?Instructions ?Recorded ?Confirmed ?Type aspirin 81 mg tablet,delayed 81 mg PO QDAY 12/05/17 01/29/24 History release (Kendrick Low Dose Aspirin) furosemide 40 mg tablet 40 mg PO BID 05/01/19 01/29/24 History amlodipine 5 mg tablet 10 mg PO QDAY 07/05/20 01/29/24 History carvedilol 12.5 mg tablet (Coreg) 12.5 mg PO BID 07/05/20 01/29/24 History atorvastatin 40 mg tablet 40 mg PO HS 02/10/21 01/29/24 History insulin regular human 100 unit/mL See Rx Instructions .Route .COMPLEX 02/10/21 01/29/24 History injection solution (Humulin R Regular U-100 Insulin) metolazone 2.5 mg tablet 5 mg PO QDAY 02/10/21 01/29/24 History clonidine HCl 0.1 mg tablet 0.1 mg PO BID 01/29/24 01/29/24 History insulin detemir U-100 100 unit/mL 45 unit subcut HS 01/29/24 01/29/24 History subcutaneous solution (Levemir U-100 Insulin) isosorbide mononitrate 30 mg 30 mg PO QDAY 01/29/24 01/29/24 History tablet,extended release 24 hr losartan 100 mg tablet 100 mg PO QDAY 01/29/24 01/29/24 History vitamin B complex-vitamin C-folic 1 tab PO QDAY 01/29/24 01/29/24 History acid 0.8 mg tablet (Emmanuelle-Florian) Allergies Allergy/AdvReac Type Severity Reaction Status Date / Time Penicillins Allergy Severe RASH,DIFF. Verified 04/27/22 19:53 BREATHING Visit Medications Acetaminophen (Acetaminophen 325 Mg Tablet) 650 mg PO Q6H PRN PRN Reason: Pain 1-3 and/or Fever >100.1 Stop: 02/28/24 14:22 Aspirin (Aspirin Ec 81 Mg Tabec) 81 mg PO QDAY SWATHI Stop: 02/29/24 08:59 Atorvastatin Calcium (Atorvastatin Calcium 20 Mg Tablet) 80 mg PO HS SWATHI Stop: 02/28/24 14:59 Clopidogrel Bisulfate (Clopidogrel Bisulfate 75 Mg Tablet) 75 mg PO QDAY SWATHI Stop: 02/29/24 08:59 Dextrose (Dextrose 50%-Water Inj 50 Ml Syringe) 25 ml IV Q15MIN PRN PRN Reason: BG 50-70 responsive npo pt Stop: 02/28/24 14:22 Dextrose (Dextrose 50%-Water Inj 50 Ml Syringe) 50 ml IV Q15MIN PRN PRN Reason: BG <50 OR BG <70 & pt unresponsive Stop: 02/28/24 14:22 Fluconazole (Fluconazole 100 Mg Tablet) 200 mg PO QDAY SWATHI Stop: 02/05/24 15:19 Glucagon (Glucagon Inj 1 Mg Vial) 1 mg IM Q15MIN PRN PRN Reason: BG <70, and no IV access Heparin Sodium (Porcine) (Heparin Sod Inj 5000 Unit/Ml Vial) 5,000 unit SC Q12HR SWATHI Stop: 02/12/24 20:59 Insulin Human Lispro (Insulin Lispro (Admelog) 1 Unit/0.01 Ml Unit) 0 unit SC Q6HR SWATHI; Protocol Stop: 02/28/24 17:59 Labetalol HCl (Labetalol Inj 5 Mg/Ml Vial 20 Ml) 10 mg IVP Q4HR PRN PRN Reason: Systolic >220 Stop: 02/28/24 14:56 Ondansetron HCl (Ondansetron Inj 2 Mg/Ml Inj 2 Ml) 4 mg IV Q4HR PRN PRN Reason: NAUSEA OR VOMITING Stop: 02/28/24 11:31 Sennosides (Senna Tablet) 1 tab PO QDAY PRN; Protocol PRN Reason: constipation Stop: 02/28/24 14:22 Sevelamer Carbonate (Sevelamer Carbonate 800 Mg Tablet) 2,400 mg PO TIDWM SWATHI Stop: 02/28/24 17:29 Discontinued Medications Aspirin (Aspirin Ec 81 Mg Tabec) 81 mg PO X1 ONE Stop: 01/29/24 13:45 Last Admin: 01/29/24 14:27 Dose: 81 mg Atorvastatin Calcium (Atorvastatin Calcium 20 Mg Tablet) 80 mg PO QDAY [facility] Stop: 02/28/24 14:59 Clopidogrel Bisulfate (Clopidogrel Bisulfate 75 Mg Tablet) 75 mg PO X1 ONE Stop: 01/29/24 13:45 Last Admin: 01/29/24 14:27 Dose: 75 mg Fluconazole (Fluconazole 100 Mg Tablet) 400 mg PO QDAY [facility] Stop: 02/05/24 14:59 Last Admin: 01/29/24 15:38 Dose: Not Given Pantoprazole Sodium (Pantoprazole Inj 40 Mg Vial) 40 mg IVP QDAY [facility] Stop: 02/29/24 08:59 Assessment & Plan Plan 58-year-old male with past medical history of coronary artery disease s/p 4 vessel CABG (May 05, 2021 in [place]), chronic diastolic CHF [60-65] ESRD on HD (M/W/F), essential hypertension, insulin-dependent diabetes (unsure whether type I or type II), hyperlipidemia presents to the ED on 01/28 with acute change in mentation and worsening headache.Patient was admitted for stroke rule out versus metabolic encephalopathy. Patient was admitted for stroke rule out versus metabolic encephalopathy. Cardiology was consulted for moderate to severe PAH along with positive bubble study. 1. Chronic diastolic heart failure with preserved ejection fraction [60-65%] 2. Possible AV shunt 3. Mitral regurgitation 4. Essential hypertension On admission patient reported intermittent shortness of breath associated with a 3 pillow orthopnea and PND. Patient also had questionable presyncope prior to admission. Patient's home medication metolazone 5 Mg p.o. daily, losartan 100 Mg p.o. daily, isosorbide mononitrate 30 Mg p.o. daily, furosemide 40 Mg p.o. twice daily and carvedilol 12.5 Mg p.o. twice daily as part of GDMT. No recent BNP. Troponin negative on admission. Transthoracic echocardiogram completed on 01/28 findings include: Positive bubble study with bubbles appearing after 5th cycle indicating possibe pulmonary AV shunt. Cannot rule out a PFO based on the study and recommend LINDA if high index of clinical suspicion. Normal LV size and function. Mild LVH. Grade II diastolic dysfunction. Estimated EF 60-65% Moderate Rv and RA dilatation. Estimated RVSP 68mmHg. Moderate to severe PAH. Mild LA dilatation. Mild MR, TR, PI. Trace AI. IVC dilated. Plan: ? Strict input output charting ? Fluid restriction of 1500 cc/day ? Daily weight ? 2G sodium restricted diet ? Continue home diuretic furosemide and metolazone once out of window for permissive hypertension. ? Recommend to also continue losartan and Coreg as part of GDMT and isosorbide mononitrate and losartan for blood pressure control once out of 48 window for permissive hypertension. 5. Possible pulmonary AV shunt On transthoracic echocardiogram there was a positive bubble study with bubbles appearing after the fifth cycle indicating possible pulmonary AV shunt. Patient to be scheduled for LINDA to further evaluation only if the stroke is confirmed. Patient has history of GERD in the past, but denies any recent symptoms of acid reflux, heartburn, chest pain 6. CAD s/p four-vessel CABG in [place] [2021] 7. Hyperlipidemia Recommend to continue aspirin and clopidogrel to prevent thrombosis of grafts Recommend to continue high intensity statin 8. ESRD on HD [M/W/F] Continue management as per primary team 9. IDDM No recent HbA1c on file. Continue management as per primary team 10. History of pulmonary nodule/mass for investigation Patient follows up at [facility] for possible cocci/fungal infection of his lung and left sided pulmonary nodule. Scheduled for biopsy on February 06, 2024. 11. Acute encephalopathy 12. CVA versus TIA Patient presents with worsening headache in the back of his head along with weakness; did not lose consciousness per HPI The symptoms began before dialysis session at 4 AM and progressively worsened Per patient, he was able to ambulate out of his housing unit to get to his ex- 's house and notify them that he was feeling weak and had worsening headache In the ED, NIHSS score was 20 CT head was negative CTA of head and neck showed incomplete filling of the distal P1 segment of the left posterior cerebral artery and neck arterial sclerosis Continue management as per neurology and primary team. Continue rest of management as per primary team. We are grateful to be able to participate in Mr. Brown' care. Thank you for the consult Plan of care discussed with attending Manual Arts Teacher, Dr Ross Mathias MD PGY 1 Attending Provider Attestation/Addendum I have personally seen and examined the patient separately on the above date of service and discussed the plan of care with the resident. I reviewed the resident Dr. Mathias consultation note and agree with the resident findings and plan in the note above and have also edited the documentation to reflect my findings and plan. 58-year-old male with past medical history of coronary artery disease s/p 4 vessel CABG (May 05, 2021 in [place]), chronic diastolic CHF [60-65] ESRD on HD (M/W/F), essential hypertension, poorly controlled insulin-dependent diabetes (unsure whether type I or type II), hyperlipidemia, alcohol abuse with more than 6 pack beer for many years, history presents to the ED on 01/28 with acute change in mentation and worsening headache.Patient was admitted for stroke rule out versus metabolic encephalopathy. Cardiology was consulted for moderate to severe PAH along with positive bubble study noted on the echocardiogram. Transthoracic echocardiogram completed on 01/28 findings include: Positive bubble study with bubbles appearing after 5th cycle indicating possibe pulmonary AV shunt. Cannot rule out a PFO based on the study and recommend LINDA if high index of clinical suspicion. Normal LV size and function. Mild LVH. Grade II diastolic dysfunction. Estimated EF 60-65% Moderate Rv and RA dilatation. Estimated RVSP 68mmHg. Moderate to severe PAH. Mild LA dilatation. Mild MR, TR, PI. Trace AI. IVC dilated. ---Reviewed echocardiogram and as noted above the patient does have moderate to severe PAH with an RVSP of around 70 mmHg with moderate RV and RA dilatation. Unclear etiology for the moderate to severe PAH. Patient will need further workup of the PAH but patient apparently follows up with [facility] for his kidney transplant workup and recently found to have some lung lesions regarding a cocci or fungal infection of the lungs along with pulmonary nodule for which she has a biopsy scheduled on February 06, 2024. Patient appears to be volume overloaded with dilated IVC and patient appears to be volume overloaded with IVC dilated too. Patient has a history of end-stage renal disease on hemodialysis and continue dialysis for fluid management and would recommend additional fluid removal during each session of dialysis. Strict input output, daily weights and 2 g sodium diet for now. Will need a right heart cath eventually for further evaluation of the etiology of the PAH after his stroke workup is completed and also can be done as outpatient after adequate fluid removal. Patient also given the option to follow-up with [facility] for further workup of PAH where he is having his lung biopsy performed in the next few weeks. --- Regarding the positive bubble study reviewed the transthoracic echo and patient had a positive bubble study only after the fifth cycle indicating possible small pulmonary AV shunt. Will mediate LINDA for further characterization and to rule out a PFO. Will proceed with LINDA workup only if the patient has a confirmed stroke on the MRI. Otherwise treatment continue medical management for now. ----Patient is with a history of CAD status post CABG 2 years ago in 2021 at [place]. Patient states that he has photographs but unknown anastomosis. Please try to obtain the surgical operative report for the patient. Patient denies any chest pain chest pressure or other cardiac ablation at the present point of time except for the mentioned in the HPI. Patient should be on aspirin statin as well as a beta-silke blood pressure response visible and no other contraindications. ----Patient is being followed by neurology to rule out stroke. Continue permissive hypertension for now and then in 48 hours patient will need aggressive blood pressure control and will continue to uptitrate the medications. --- Uncontrolled diabetes mellitus-patient appears to be poorly controlled and and recommended strict control of the diabetes. Management of rest of the medical conditions as per primary team and other consultants. Thank you for the consult and allowing me to participate in the care of the patient. Cardiology will continue to follow. Heath Hawkins M.D. Interventional Cardiology
[2024-01-29] MEDS: SEVELAMER CARBONATE 800 MG TABLET 2400 MG PO (19:14)
[2024-01-29] MEDS: FLUCONAZOLE 100 MG TABLET 200 MG PO (19:38)
[2024-01-29] MEDS: ACETAMINOPHEN 325 MG TABLET 650 MG PO (20:27)
[2024-01-29] MEDS: ATORVASTATIN CALCIUM 20 MG TABLET 80 MG PO (20:27)
[2024-01-29] MEDS: HEPARIN SOD INJ 5000 UNIT/ML VIAL SC (20:51)
[2024-01-29] MEDS: INSULIN GLARGINE (Lantus) 5 UNIT/0.05 ML (PER 5 UNITS) 30 UNIT SC (21:02)
--- NOTE | 2024-01-29 21:35 | PC.NURSE ---
Addendum entered by Jolly Munoz RN 01/30/24 03:03: 0300: [facility] rechecked and now at 269. Dr. Amaya called and made aware. No new orders at this time. Patient denies any new or worsening symptoms. Addendum entered by Jolly Munoz RN 01/30/24 01:25: 0125: Dr Amaya made aware of [facility] now at 468. No new orders for coverage at this time. Per Dr. Amaya recheck [facility] in an hour in a half. Patient easily awakened by voice and able to answer questions appropriately. No new or worsening symptoms reported by patient. Addendum entered by Jolly Munoz RN 01/29/24 23:47: 2345: Dr. Amaya called and made aware that [facility] 509; states he will place orders for medication and to recheck [facility] in an hour in a half. Patient awake, alert and responsive to voice. Original Note: 2030: Dr. Vaughn and Dr. Jose Luis stern made of patients [facility] of 423. No order to cover per insulin sliding scale. Orders to administer only 30 units of Lantus now and recheck [facility] at midnight. Patient alert and responsive to voice, able to answer questions appropriately, no signs or symptoms of acute distress observed or reported at this time.
--- NOTE | 2024-01-29 23:51 | PD.NEUROCONS ---
History of Present Illness Data of Consult Requesting Physician: Joshua Benitez MD Primary Care Provider: Sanchez Hughes MD Consult Narrative cc:: cc: Joshua Benitez MD Review of Systems Review of Systems Systems Reviewed: All systems reviewed, normal except as documented Past Medical History Past Medical History NEUROLOGIC: Positive Neurological Disorders and Peripheral Neuropathy CARDIAC: Positive Cardiac Disorders, Myocardial Infarction, Hypercholesterolemia, Congestive Heart Failure, Edema and Hypertension RESPIRATORY: Positive Pulmonary Edema GASTROINTESTINAL: Positive Gastrointestinal Disorders and Gastroesophageal Reflux Disease GENITOURINARY: Positive Genitourinary Disorders and Renal Disease MUSCULOSKELETAL: Positive Musculoskeletal Disorders and Arthritis ENDOCRINE: Positive Endocrine Disorders and Diabetes Mellitus Type 2 HEMATOLOGIC: Positive Blood Disorders and Anemia OTHER HISTORY: Positive Chicken Pox Family History FAMILY HISTORY: Positive Family Cardiac Disorders and Family Surgery Surgical History SURGICAL: Positive Coronary Artery Bypass Graft, Eye Surgery and Abdominal Surgery Social History SMOKING STATUS: Never smoker SUBSTANCE USE: does not use Meds Home Medications and Allergies Home Medications ?Medication ?Instructions ?Recorded ?Confirmed ?Type aspirin 81 mg tablet,delayed 81 mg PO QDAY 12/05/17 01/29/24 History release (Kendrick Low Dose Aspirin) furosemide 40 mg tablet 40 mg PO BID 05/01/19 01/29/24 History amlodipine 5 mg tablet 10 mg PO QDAY 07/05/20 01/29/24 History carvedilol 12.5 mg tablet (Coreg) 12.5 mg PO BID 07/05/20 01/29/24 History atorvastatin 40 mg tablet 40 mg PO HS 02/10/21 01/29/24 History insulin regular human 100 unit/mL See Rx Instructions .Route .COMPLEX 02/10/21 01/29/24 History injection solution (Humulin R Regular U-100 Insulin) metolazone 2.5 mg tablet 5 mg PO QDAY 02/10/21 01/29/24 History clonidine HCl 0.1 mg tablet 0.1 mg PO BID 01/29/24 01/29/24 History insulin detemir U-100 100 unit/mL 45 unit subcut HS 01/29/24 01/29/24 History subcutaneous solution (Levemir U-100 Insulin) isosorbide mononitrate 30 mg 30 mg PO QDAY 01/29/24 01/29/24 History tablet,extended release 24 hr losartan 100 mg tablet 100 mg PO QDAY 11/25/24 11/25/24 History vitamin B complex-vitamin C-folic 1 tab PO QDAY 01/29/24 01/29/24 History acid 0.8 mg tablet (Emmanuelle-Florian) Allergies Allergy/AdvReac Type Severity Reaction Status Date / Time Penicillins Allergy Severe RASH,DIFF. Verified 04/27/22 19:53 BREATHING Exam - Neurology Vital Signs Temp Pulse Resp BP Pulse Ox O2 Del Method O2 Flow Rate 97.9 F 59 L 16 158/73 H 100 Nasal Cannula 3 01/29/24 20:00 01/29/24 20:00 01/29/24 20:00 01/29/24 20:00 01/29/24 20:00 01/29/24 20:00 01/29/24 20:00 Narrative Exam GENERAL APPEARANCE: Well developed, well-nourished in no acute distress. HEENT: Normocephalic, atraumatic, extraocular movements intact. Pupils: Equal reacting to light and accommodation NECK: Supple, no JVD or bruits. CARDIOVASULAR: Heart: S1, S2 heard, regular without S3-S4 or murmur no rubs or gallops. LUNGS/CHEST: Clear to auscultation bilaterally. No rails, rhonchi, or wheezing. Normal inspection. ABDOMEN: Soft, nontender, with normal bowel sounds. No pulsatile masses. No rebound, rigidity, or guarding. Normal inspection and palpation. EXTREMITIES: Normal inspection and palpation. No edema, clubbing or cyanosis. SKIN: Warm and dry without rashes. Normal inspection. MUSCULOSKELETAL: No cervical, thoracic, lumbar or midline bony tenderness. Normal inspection. NEURO: Alert, awake and oriented x3. Cranial nerves: II through XII grossly intact. Speech and language: Normal with no dysarthria or dysphasia. Motor system: Tone and bulk: Normal: Strength: 5 out of 5 in all 4 extremities; No pronator drift noted. Deep tendon reflexes: 2+ bilaterally symmetrical. Plantar reflex: Downgoing bilaterally. Sensory system: Intact to all modalities of sensation bilaterally. Coordination: Intact to toform-fmbo-[id number] and agkh-qeah-msom test bilaterally. No ataxia, no dysmetria, or dysdiadochokinesia noted. No intention tremors noted. Gait: Not tested. No signs of meningeal irritation noted. PSYCHIATRIC: Normal mood and affect. Results Labs 01/29/24 11:38 01/29/24 11:38 Labs: Short CBC 01/29/24 Range/Units 11:38 WBC 7.7 (3.8-10.6) Thou/mm3 Hgb 9.6 L (13.5-16.0) g/dL Hct 28.5 L (41.0-53.0) % Plt Count 107 L (140-440) Thou/mm3 BMP 01/29/24 11:38 Sodium 135 L Potassium 3.4 Chloride 97 L Carbon Dioxide 30.5 BUN 15 Creatinine 3.1 H Glucose 333 H Calcium 9.3 Cardiac Enzymes 01/29/24 Range/Units 11:38 Troponin I < 0.020 (0.0-0.045) ng/mL Liver Function 01/29/24 Range/Units 11:38 Total Bilirubin 1.1 (0.3-1.2) mg/dL AST 37 H (0-34) U/L ALT 36 (10-49) U/L Alkaline Phosphatase 270 H (46-116) U/L Albumin 4.1 (3.5-5.0) gm/dL Assessment & Plan Assessment and plan (1) Altered mental status: Status: Resolved Assessment and plan: CT head: Negative CT angiogram of the head and neck: Neck arterial stenoses Incomplete filling of the distal P1 segment left posterior cerebral artery, clinical correlation advised Carotid Doppler: Negative for stenosis on both sides Continue with aspirin 81 mg, blood pressure control and better diabetes control. Cocci serology: Pending Follow-up with EEG and MRI brain without contrast (2) ESRD (end stage renal disease): Status: Chronic Assessment and plan: On maintenance hemodialysis, On the waiting list for renal transplant (3) Headache: Status: Acute Assessment and plan: Improving (4) Anemia: Status: Chronic Assessment and plan: Secondary to chronic kidney disease (5) Diabetes mellitus with hyperglycemia: Status: Chronic Assessment and plan: Needs better control
[2024-01-29] MEDS: INSULIN LISPRO (AdmeLOG) 1 UNIT/0.01 ML UNIT 10 UNIT SC (23:55)
[2024-01-30] VITALS (8 sets, daily range): BP systolic 141–179; BP diastolic 73–83; PULSE 60–70; RESP 14–19; TEMP 36.5–37.1; O2SAT 96–99; BMI 23.3; BMI 13.0
--- NOTE | 2024-01-30 | XR_ITS ---
Examinations: MRI Brain without intravenous contrast. MRA brain without intravenous contrast. MRA carotids without intravenous contrast 3-D vascular reconstructions Date and time of exam: January 30, 2024 0944 hours INDICATIONS: CT stroke alert yesterday, onset focal neurologic deficit left facial droop left arm drift and weakness Technique: Multiple axial and sagittal images of the brain have been obtained MRA brain carotid images without contrast obtained, including 3-D postprocessing, vascular maximum intensity projection images Findings: Sellaturcica is not enlarged. The optic chiasm and infundibular stalk are not remarkable. Prepontine and interpeduncular cisterns are not enlarged. No localized enlargement of the medulla or maxwell. Fourth ventricle and cerebellar tonsils normal in position. Subacute hemorrhage is not seen. Fourth ventricle is midline. Mass in the cerebellopontine angle region is not evident. 7th and 8th nerve complexes exhibits symmetry. Globes are symmetrical with no retro-orbital mass. Increased white matter signal prominent Diffusion-weighted images demonstrate no focus of restricted diffusion Mass-effect upon the ventricular system is not identified. MRA carotid images no significant carotid stenoses. MRA brain images no large vessel occlusions Impression: Negative for acute hemorrhage mass effect or midline shift No acute infarct Multiple foci of increased signal in the white matter, demyelinating disease pattern versus 6 tolerated chronic microvascular white matter change, clinical correlation advised
--- NOTE | 2024-01-30 01:46 | PC.OT ---
DR TOVAR IN THE UNIT AND ORDERED INSULIN LISPRO 1O UNITS SQ TO BE GIVEN NOW, AWAITING PHARMACY VERIFICATION. STATED TO DO FINGERSTICK AFTER AN HOUR.
[2024-01-30] MEDS: INSULIN LISPRO (AdmeLOG) 1 UNIT/0.01 ML UNIT 10 UNIT SC (01:58)
--- NOTE | 2024-01-30 04:44 | PC.NURSE ---
Occult blood stool performed with positive results. called and made aware. No new orders at this time.
[2024-01-30 05:38] LABS: Collection Type, Urine Clean Catch; Squamous Epithelial Cell,Urine 0 /hpf (0-5)
--- NOTE | 2024-01-30 05:38 | PC.NURSE ---
Addendum entered by Jolly Munoz RN 01/30/24 06:16: FSBG rechecked and resulted at 49. Pt awake and responsive but now diaphoretic. 25ml of D50 IVP administered per hypoglycemic protocol. [facility] rechecked after 15min of administration of D50 IVP; see MAR. FSBG now 164. MD called and made aware. No new orders at this time. Patient educated to call if any new or worsening symptoms. Patient verbalized understanding. Original Note: Patient called and stated he feels like his blood sugar is low. FSBG checked with result of 57. Pt awake and alert and able to answer questions. Juice/carbs given to patient. MD called and made aware. Per MD recheck per hypoglycemic protocol.
[2024-01-30 05:50] LABS: Bilirubin,Urine Negative (Negative); Blood,Urine Negative (Negative); Clarity,Urine Clear (Clear/Hazy); Color,Urine Yellow (Lt Yel-Yel); Glucose, Urine 4+ (Negative); Ketones,Urine Negative (Negative); Leukocyte Esterase,Urine Negative (Negative); Nitrite,Urine Negative (Negative); PH,Urine 8.5 (5.0-7.0); Protein,Urine 3+ (Neg - Trace); RBC,Urine 1 /hpf (0-3); Specific Gravity,Urine 1.019 (1.001-1.035); Urobilinogen,Urine Negative mg/dL (0.0-1.0); WBC,Urine 2 /hpf (0-5)
[2024-01-30] MEDS: DEXTROSE 50%-WATER INJ 50 ML SYRINGE 25 ML IV (05:51)
[2024-01-30 05:52] LABS: Basophils % (Auto) 1 % (0-2.5); Eosinophils # (Auto) 0.6 Thou/mm3 (0.0-0.5); Eosinophils % (Auto) 8 % (0-10); Hematocrit 26.5 % (41.0-53.0); Immature Granulocytes % (Auto) 0 % (0-0); Immature Granulocytes Auto 0.01 Thou/mm3 (0.00-0.00); Lymphocytes # (Auto) 0.8 Thou/mm3 (1.0-4.8); Lymphocytes % (Auto) 11 % (10-50); Mean Corpuscular HGB Conc 33.2 g/dl (31.0-37.0); Mean Corpuscular Hemoglobin 32.5 pg (25.0-35.0); Mean Corpuscular Volume 98 fL (80-100); Monocytes # (Auto) 0.6 Thou/mm3 (0.0-0.8); Monocytes % (Auto) 8 % (0-12); Neutrophils # (Auto) 5.2 Thou/mm3 (1.8-7.7); Neutrophils % (Auto) 72 % (37-80); Nucleated Red Blood Cell % 0 /100 WBC (0); Platelet Count 99 Thou/mm3 (140-440); RDW Standard Deviation 62.2 fL (35.1-43.9); Red Blood Count 2.71 Miln/mm3 (4.50-5.90); White Blood Count 7.3 Thou/mm3 (3.8-10.6)
[2024-01-30 05:58] LABS: Hemoglobin 8.8 g/dL (13.5-16.0)
[2024-01-30 06:01] LABS: INR 1.2 (0.9-1.3); Prothrombin Time 13.1 Seconds (9.0-12.2)
[2024-01-30 06:02] LABS: Amphetamine/Methamp Scrn,U Negative (Negative); Barbiturate Screen,Urine Negative (Negative); Benzodiazepines Screen,Urine Negative (Negative); Benzoylecgonine Screen, Ur Negative (Negative); Fentanyl Screen,Urine Negative (Negative); Opiate Screen,Urine Negative (Negative); THC Screen,Urine Negative (Negative)
[2024-01-30 06:06] LABS: Glucose Estimated Average 240 mg/dL (80-131)
[2024-01-30 06:41] LABS: Alanine Aminotransferase 32 U/L (10-49); Albumin, Serum 3.8 gm/dL (3.5-5.0); Albumin/Globulin Ratio 1.4 (1.2-2.2); Alkaline Phosphatase 243 U/L (46-116); Anion Gap 9 (7-16); Aspartate Amino Transferase 31 U/L (0-34); BUN/Creatinine Ratio 6 Ratio (12-20); Bilirubin,Total 0.7 mg/dL (0.3-1.2); Blood Urea Nitrogen 29 mg/dL (9-23); Calcium (Corrected) 9.2 mg/dL (8.5-10.1); Carbon Dioxide 31.5 mMol/L (20.0-31.0); Cardiac Risk Estimate 2.9 RATIO (4.0-6.7); Chloride 95 mMol/L (98-107); Cholesterol 103 mg/dL (132-200); Creatinine (Component) 4.6 mg/dL (0.6-1.3); Estimated Creatinine Clearance 13.8 mL/min (>60); Globulin 2.7 gm/dL (2.3-3.5); Glucose 59 mg/dL (74-106); HDL Cholesterol 36 mg/dL (40-60); LDL Cholesterol,Calculated 59 mg/dL (0-130); Magnesium 2.3 mg/dL (1.6-2.6); Osmolality,Calculated 273 (275-295); Phosphorous 2.4 mg/dL (2.4-5.1); Potassium 3.3 mMol/L (3.4-5.1); Sodium 135 mMol/L (136-145); Thyroid Stimulating Hormone 2.07 uIU/mL (0.55-4.78); Total Protein 6.5 gm/dL (5.7-8.2); Triglycerides 40 mg/dL (30-150); eGFR 14 See Note
--- NOTE | 2024-01-30 06:56 | PD.NEPHCONS ---
History of Present Illness Data of Consult Requesting Physician: Joshua Benitez MD Primary Care Provider: Sanchez Hughes MD Consult Narrative History of present illness: 58 y.o male w/ PMHx significant for CAD s/p CABG, CHF, ESRD on HD (MWF), HTN, insulin dependent DM, HLD who presented to the ED with acute confusion and headache and admitted for acute metabolic encepahlapathy vs stroke r/o. Nephrology is consulted to arrange HD. cc:: cc: Joshua Benitez MD Review of Systems Review of Systems Systems Reviewed: All systems reviewed, normal except as documented Meds Home Medications and Allergies Home Medications ?Medication ?Instructions ?Recorded ?Confirmed ?Type aspirin 81 mg tablet,delayed 81 mg PO QDAY 12/05/17 01/29/24 History release (Kendrick Low Dose Aspirin) furosemide 40 mg tablet 40 mg PO BID 05/01/19 01/29/24 History amlodipine 5 mg tablet 10 mg PO QDAY 07/05/20 01/29/24 History carvedilol 12.5 mg tablet (Coreg) 12.5 mg PO BID 07/05/20 01/29/24 History atorvastatin 40 mg tablet 40 mg PO HS 02/10/21 01/29/24 History insulin regular human 100 unit/mL See Rx Instructions .Route .COMPLEX 02/10/21 01/29/24 History injection solution (Humulin R Regular U-100 Insulin) metolazone 2.5 mg tablet 5 mg PO QDAY 02/10/21 01/29/24 History clonidine HCl 0.1 mg tablet 0.1 mg PO BID 01/29/24 01/29/24 History insulin detemir U-100 100 unit/mL 45 unit subcut HS 01/29/24 01/29/24 History subcutaneous solution (Levemir U-100 Insulin) isosorbide mononitrate 30 mg 30 mg PO QDAY 01/29/24 01/29/24 History tablet,extended release 24 hr losartan 100 mg tablet 100 mg PO QDAY 01/29/24 01/29/24 History vitamin B complex-vitamin C-folic 1 tab PO QDAY 01/29/24 01/29/24 History acid 0.8 mg tablet (Emmanuelle-Florian) Allergies Allergy/AdvReac Type Severity Reaction Status Date / Time Penicillins Allergy Severe RASH,DIFF. Verified 04/27/22 19:53 BREATHING Exam Vital Signs Temp Pulse Resp BP Pulse Ox O2 Del Method O2 Flow Rate 98.7 F 60 14 141/75 H 99 Nasal Cannula 3 01/30/24 04:00 01/30/24 04:00 01/30/24 04:00 01/30/24 04:00 01/30/24 04:00 01/30/24 00:00 01/30/24 00:00 Narrative Exam heart s1, s2 chest cta juanita ext no edema Results Labs 02/01/24 08:35 02/01/24 04:30 Labs: Short CBC 01/29/24 01/30/24 Range/Units 11:38 05:32 WBC 7.7 7.3 (3.8-10.6) Thou/mm3 Hgb 9.6 L 8.8 L (13.5-16.0) g/dL Hct 28.5 L 26.5 L (41.0-53.0) % Plt Count 107 L 99 L (140-440) Thou/mm3 BMP 01/29/24 01/30/24 11:38 05:32 Sodium 135 L 135 L Potassium 3.4 3.3 L Chloride 97 L 95 L Carbon Dioxide 30.5 31.5 H BUN 15 29 H Creatinine 3.1 H 4.6 H* D Glucose 333 H 59 L D Calcium 9.3 9.0 Cardiac Enzymes 01/29/24 Range/Units 11:38 Troponin I < 0.020 (0.0-0.045) ng/mL Liver Function 01/29/24 01/30/24 Range/Units 11:38 05:32 Total Bilirubin 1.1 0.7 (0.3-1.2) mg/dL AST 37 H 31 (0-34) U/L ALT 36 32 (10-49) U/L Alkaline Phosphatase 270 H 243 H D (46-116) U/L Albumin 4.1 3.8 (3.5-5.0) gm/dL Urine 01/30/24 Range/Units 04:18 Urine Color Yellow (Lt Yel-Yel) Urine Clarity Clear (Clear/Hazy) Urine pH 8.5 H (5.0-7.0) Ur Specific Crawley 1.019 (1.001-1.035) Urine Protein 3+ A (Neg - Trace) Urine Glucose (UA) 4+ A (Negative) Assessment & Plan Assessment and plan (1) Altered mental status: Status: Resolved (2) ESRD (end stage renal disease): Status: Chronic Assessment and plan: will do HD as scheduled c/w dialysis support (3) Headache: Status: Acute (4) Anemia: Status: Chronic (5) Diabetes mellitus with hyperglycemia: Status: Chronic
[2024-01-30] MEDS: SEVELAMER CARBONATE 800 MG TABLET 2400 MG PO ×3 (08:15→17:10)
[2024-01-30] MEDS: ASPIRIN EC 81 MG TABEC PO (08:16)
[2024-01-30] MEDS: CLOPIDOGREL BISULFATE 75 MG TABLET PO (08:16)
[2024-01-30] MEDS: FLUCONAZOLE 100 MG TABLET 200 MG PO (08:16)
[2024-01-30] MEDS: POTASSIUM CHLORIDE 20 mEq TABCR 40 MEQ PO (08:27)
--- NOTE | 2024-01-30 09:29 | PCS.ST ---
Passed NSS. Tolerating diet. No dysphagia. Cognitive/communication skills are baseline. No formal ST services warranted at this time.
--- NOTE | 2024-01-30 10:00 | PC.SS ---
Patient is alert/oriented. He resides alone. Patient was admitte for r/o stroke. Patient states he is independent with ADL's. He is on dialysis every M/W/F @ 4a.m. with Dr. Nguyen at [facility] off [address]. Patient states he's on the waiting list for renal transplant . He frequently has doctor's appointments at [facility] for follow up's. Patient states recently he has had telehealth calls. Patient states he sees a Management Scientist at [facility]. Patient is currently on 02 in hospital setting. He is not on 02 at home. He uses a cane as needed. Patient states he follows with Alessandra Walker NP @ [facility]. Last appt. was a week ago. Patient's alt medical decision maker is his ex , Marion. Patient states he met with speech therapist this morning. There is a consult for PT bety to be seen today. transportation: family/uber d/c plan: home alt medical decision maker: ex , Marion ,
--- NOTE | 2024-01-30 10:25 | ESPR_ITS ---
Documentation for date of: 01/30/24 Subjective Subjective Interval history: Patient was seen and examined at bedside this AM. No acute exents overnight. Patient tolerating diet, adequate urine output and mentation is at baseline. Patient endorses improvement of headache. MRI brain showed chronic white matter changes consistent with small vessel disease rather than demyelination. No acute infarcts noted. In light of no infarct seen on MRI no need for LINDA at this point. Will need a right heart cath eventually for further evaluation of the etiology of the PAH after his stroke workup is completed and also can be done as outpatient after adequate fluid removal. Patient also given the option to follow-up with [facility] for further workup of PAH where he is having his lung biopsy performed in the next few weeks Exam Vital Signs Temp Pulse Resp BP Pulse Ox O2 Del Method O2 Flow Rate 97.7 F 63 19 146/73 H 98 Nasal Cannula 3 01/30/24 08:00 01/30/24 08:00 01/30/24 08:00 01/30/24 08:00 01/30/24 08:00 01/30/24 08:00 01/30/24 08:00 Narrative Exam Constitutional Alert, oriented x 3 and comfortable. Young male HEENT Vision grossly intact. Patent nares. Trachea midline Respiratory Midline sternotomy scar noted and decreased AE b/l Cardiovascular S1 and S2 audible, RRR. 3/6 systolic murmur at apex with radiation to axilla, no carotid bruit. JVD not assessed Abdominal Tense, distended and non tender to palpation in all quadrants. Umbilicus everted, BS + Genitourinary No bladder tenderness, no flank pain. Normal to palpation Musculoskeletal Extremities tone within normal limits. No LE edema. Neurological CN II - XII grossly intact. Extremity motor and sensation grossly intact. Skin Warm, dry and intact. Left brachiocephalic fistula Psychiatric Patient has good affect, is cooperative Objective Labs 01/31/24 05:44 01/31/24 05:44 Labs: Laboratory Results - last 24 hr 01/29/24 01/29/24 01/30/24 11:38 12:09 04:18 WBC 7.7 RBC 2.96 L Hgb 9.6 L Hct 28.5 L MCV 96 MCH 32.4 MCHC 33.7 RDW Std Deviation 62.4 H Plt Count 107 L Neut % (Auto) 80 Lymph % (Auto) 8 L [place] % (Auto) 6 Eos % (Auto) 6 Baso % (Auto) 1 Neut # (Auto) 6.1 Lymph # (Auto) 0.6 L [place] # (Auto) 0.5 Eos # (Auto) 0.4 Baso # (Auto) 0.0 Immature Gran # (Auto) 0.02 H Absolute Nucleated RBC 0.00 Immature Gran % 0 Nucleated RBC % 0 PT 12.5 H INR 1.2 APTT 29.4 Sodium 135 L Potassium 3.4 Chloride 97 L Carbon Dioxide 30.5 Anion Gap 8 BUN 15 Creatinine 3.1 H Estim Creat Clear Calc 20.5 L eGFR 23 L BUN/Creatinine Ratio 5 L Glucose [address] Glu mg/dL Hemoglobin A1c Calculated Osmolality 283 Calcium 9.3 Corrected Calcium 9.3 Phosphorus Magnesium 2.4 Total Bilirubin 1.1 AST 37 H ALT 36 Alkaline Phosphatase 270 H Ammonia 21 Troponin I < 0.020 Total Protein 7.1 Albumin 4.1 Globulin 3.0 Albumin/Globulin Ratio 1.4 Triglycerides Cholesterol LDL Cholesterol, Calc HDL Cholesterol Cholesterol/HDL Ratio TSH Ur Collection Type Clean Catch Urine Color Yellow Urine Clarity Clear Urine pH 8.5 H Ur Specific [place] 1.019 Urine Protein 3+ A Urine Glucose (UA) 4+ A Urine Ketones Negative Urine Blood Negative Urine Nitrite Negative Urine Bilirubin Negative Urine Urobilinogen (Auto) Negative Ur Leukocyte Esterase Negative Urine RBC 1 Urine WBC 2 Ur Squamous Epith Cells 0 Urine Bacteria None Urine Opiates Screen Negative Urine Fentanyl Screen Negative Ur Barbiturates Screen Negative U Amphetamin/Meth Scrn Negative U Benzodiazepines Scrn Negative U Cocaine Metab Screen Negative U Marijuana (THC) Screen Negative Ethyl Alcohol < 3.0 HCG (Qual) Negative 01/30/24 05:32 WBC 7.3 RBC 2.71 L Hgb 8.8 L Hct 26.5 L MCV 98 MCH 32.5 MCHC 33.2 RDW Std Deviation 62.2 H Plt Count 99 L Neut % (Auto) 72 Lymph % (Auto) 11 [place] % (Auto) 8 Eos % (Auto) 8 Baso % (Auto) 1 Neut # (Auto) 5.2 Lymph # (Auto) 0.8 L [place] # (Auto) 0.6 Eos # (Auto) 0.6 H Baso # (Auto) 0.0 Immature Gran # (Auto) 0.01 H Absolute Nucleated RBC 0.00 Immature Gran % 0 Nucleated RBC % 0 PT 13.1 H INR 1.2 APTT Sodium 135 L Potassium 3.3 L Chloride 95 L Carbon Dioxide 31.5 H Anion Gap 9 BUN 29 H Creatinine 4.6 H* D Estim Creat Clear Calc 13.8 L eGFR 14 L* BUN/Creatinine Ratio 6 L Glucose [address] Glu mg/dL 240 H Hemoglobin A1c 10.0 H Calculated Osmolality 273 L Calcium 9.0 Corrected Calcium 9.2 Phosphorus 2.4 Magnesium 2.3 Total Bilirubin 0.7 AST 31 ALT 32 Alkaline Phosphatase 243 H D Ammonia Troponin I Total Protein 6.5 Albumin 3.8 Globulin 2.7 Albumin/Globulin Ratio 1.4 Triglycerides 40 Cholesterol 103 L LDL Cholesterol, Calc 59 HDL Cholesterol 36 L Cholesterol/HDL Ratio 2.9 L TSH 2.07 Ur Collection Type Urine Color Urine Clarity Urine pH Ur Specific [place] Urine Protein Urine Glucose (UA) Urine Ketones Urine Blood Urine Nitrite Urine Bilirubin Urine Urobilinogen (Auto) Ur Leukocyte Esterase Urine RBC Urine WBC Ur Squamous Epith Cells Urine Bacteria Urine Opiates Screen Urine Fentanyl Screen Ur Barbiturates Screen U Amphetamin/Meth Scrn U Benzodiazepines Scrn U Cocaine Metab Screen U Marijuana (THC) Screen Ethyl Alcohol HCG (Qual) Quality Measures Quality Measures stroke Suspected type of Stroke: Non Acute Last known well (date): 01/29/24 Last known well (time): 07:42 Tenecteplase given: Reason(s) Tenecteplase not given: Outside the time window not given Rehab services: PT evaluation ordered VTE Prophylaxis: pharmaceutical Antithrombotic by day 2:: ordered Statin ordered: <75 y/o high intensity dose Anticoagulation ordered for A-fib or flutter (current or hx): not indicated Assessment & Plan Assessment Current Active Medications: Generic Name Dose Route Start Last Admin Trade Name Freq PRN Reason Stop Dose Admin Acetaminophen 650 mg 01/29/24 14:23 01/29/24 20:27 Acetaminophen 325 Mg Tablet PO 02/28/24 14:22 650 mg Q6H PRN Administration Pain 1-3 and/or Fever >100.1 Aspirin 81 mg 01/30/24 09:00 01/30/24 08:16 Aspirin Ec 81 Mg Tabec PO 02/29/24 08:59 81 mg QDAY SWATHI Administration Atorvastatin Calcium 80 mg 01/29/24 21:00 01/29/24 20:27 Atorvastatin Calcium 20 Mg Tablet PO 02/28/24 14:59 80 mg HS [facility] Administration Clopidogrel Bisulfate 75 mg 01/30/24 09:00 01/30/24 08:16 Clopidogrel Bisulfate 75 Mg Tablet PO 02/29/24 08:59 75 mg QDAY SWATHI Administration Dextrose 25 ml 01/29/24 14:23 01/30/24 05:51 Dextrose 50%-Water Inj 50 Ml Syringe IV 02/28/24 14:22 25 ml Q15MIN PRN Administration BG 50-70 responsive npo pt Dextrose 50 ml 01/29/24 14:23 Dextrose 50%-Water Inj 50 Ml Syringe IV 02/28/24 14:22 Q15MIN PRN BG <50 OR BG <70 & pt unresponsive Fluconazole 200 mg 01/29/24 15:20 01/30/24 08:16 Fluconazole 100 Mg Tablet PO 02/05/24 15:19 200 mg QDAY [facility] Administration Glucagon 1 mg 01/29/24 14:23 Glucagon Inj 1 Mg Vial IM Q15MIN PRN BG <70, and no IV access Heparin Sodium (Porcine) 5,000 unit 01/29/24 21:00 01/29/24 20:51 Heparin Sod Inj 5000 Unit/Ml Vial SC 02/12/24 20:59 5,000 unit Q12HR [facility] Administration Insulin Glargine 45 unit 01/30/24 21:00 Insulin Glargine (Lantus) 5 Unit/0.05 Ml (Per 5 Units) [place] 02/29/24 20:59 [facility] Insulin Human Lispro 0 unit 01/30/24 01:43 01/30/24 07:34 Insulin Lispro (Admelog) 1 Unit/0.01 Ml Unit [place] 02/28/24 20:59 Not Given [facility] Protocol Insulin Human Lispro 6 unit 01/30/24 11:30 Insulin Lispro (Admelog) 1 Unit/0.01 Ml Unit [place] 02/29/24 11:29 [facility] Labetalol HCl 10 mg 01/29/24 14:57 Labetalol Inj 5 Mg/Ml Vial 20 Ml IVP 02/28/24 14:56 Q4HR PRN Systolic >220 Ondansetron HCl 4 mg 01/29/24 11:32 Ondansetron Inj 2 Mg/Ml Inj 2 Ml IV 02/28/24 11:31 Q4HR PRN NAUSEA OR VOMITING Sennosides 1 tab 01/29/24 14:23 Senna Tablet PO 02/28/24 14:22 QDAY PRN constipation Protocol Sevelamer Carbonate 2,400 mg 01/29/24 17:30 01/30/24 08:15 Sevelamer Carbonate 800 Mg Tablet PO 02/28/24 17:29 2,400 mg TIDWM SWATHI Administration Plan 58-year-old male with past medical history of coronary artery disease s/p 4 vessel CABG (May 05, 2021 in [place]), chronic diastolic CHF [60-65] ESRD on HD (M/W/F), essential hypertension, insulin-dependent diabetes (unsure whether type I or type II), hyperlipidemia presents to the ED on 01/28 with acute change in mentation and worsening headache.Patient was admitted for stroke rule out versus metabolic encephalopathy. Patient was admitted for stroke rule out versus metabolic encephalopathy. Cardiology was consulted for moderate to severe PAH along with positive bubble study. 1. Chronic diastolic heart failure with preserved ejection fraction [60-65%] 2. Possible AV shunt 3. Mitral regurgitation 4. Essential hypertension On admission patient reported intermittent shortness of breath associated with a 3 pillow orthopnea and PND. Patient also had questionable presyncope prior to admission. Patient's home medication metolazone 5 Mg p.o. daily, losartan 100 Mg p.o. daily, isosorbide mononitrate 30 Mg p.o. daily, furosemide 40 Mg p.o. twice daily and carvedilol 12.5 Mg p.o. twice daily as part of GDMT. No recent BNP. Troponin negative on admission. Transthoracic echocardiogram completed on 01/28 findings include: Positive bubble study with bubbles appearing after 5th cycle indicating possibe pulmonary AV shunt. Cannot rule out a PFO based on the study and recommend LINDA if high index of clinical suspicion. Normal LV size and function. Mild LVH. Grade II diastolic dysfunction. Estimated EF 60-65% Moderate Rv and RA dilatation. Estimated RVSP 68mmHg. Moderate to severe PAH. Mild LA dilatation. Mild MR, TR, PI. Trace AI. IVC dilated. Reviewed echocardiogram and as noted above the patient does have moderate to severe PAH with an RVSP of around 70 mmHg with moderate RV and RA dilatation. Unclear etiology for the moderate to severe PAH. Patient will need further workup of the PAH but patient apparently follows up with [facility] for his kidney transplant workup and recently found to have some lung lesions regarding a cocci or fungal infection of the lungs along with pulmonary nodule for which she has a biopsy scheduled on February 06, 2024. Will need a right heart cath eventually for further evaluation of the etiology of the PAH after his stroke workup is completed and also can be done as outpatient after adequate fluid removal. Patient also given the option to follow-up with [facility] for further workup of PAH where he is having his lung biopsy performed in the next few weeks. Plan: ? Strict input output charting ? Fluid restriction of 1500 cc/day ? Daily weight ? 2G sodium restricted diet ? Continue home diuretic furosemide and metolazone once out of window for permissive hypertension. ? Recommend to also continue losartan and Coreg as part of GDMT and isosorbide mononitrate and losartan for blood pressure control 5. Possible pulmonary AV shunt On transthoracic echocardiogram there was a positive bubble study with bubbles appearing after the fifth cycle indicating possible pulmonary AV shunt. Patient has history of GERD in the past, but denies any recent symptoms of acid reflux, heartburn, chest pain Regarding the positive bubble study reviewed the transthoracic echo and patient had a positive bubble study only after the fifth cycle indicating possible small pulmonary AV shunt. Will mediate LINDA for further characterization and to rule out a PFO. Plan: - MRI was negative for any acute infarcts, no need to pursue LINDA at this time. 6. CAD s/p four-vessel CABG in [place] [2021] 7. Hyperlipidemia Recommend to continue aspirin and clopidogrel to prevent thrombosis of grafts Recommend to continue high intensity statin 8. ESRD on HD [M/W/F] Patient appears to be volume overloaded with dilated IVC and patient appears to be volume overloaded with IVC dilated too. Patient has a history of end-stage renal disease on hemodialysis and continue dialysis for fluid management and would recommend additional fluid removal during each session of dialysis Continue management as per primary team and Nephrolgy 9. IDDM No recent HbA1c on file. Continue management as per primary team 10. History of pulmonary nodule/mass for investigation Patient follows up at [facility] for possible cocci/fungal infection of his lung and left sided pulmonary nodule. Scheduled for biopsy on February 06, 2024. 11. Acute encephalopathy - resolved 12. CVA versus TIA - ruled out Patient presents with worsening headache in the back of his head along with weakness; did not lose consciousness per HPI The symptoms began before dialysis session at 4 AM and progressively worsened Per patient, he was able to ambulate out of his housing unit to get to his ex- 's house and notify them that he was feeling weak and had worsening headache In the ED, NIHSS score was 20 CT head was negative CTA of head and neck showed incomplete filling of the distal P1 segment of the left posterior cerebral artery and neck arterial sclerosis MRI brain showed chronic white matter changes consistent with small vessel disease rather than demyelination. No acute infarcts noted Continue management as per neurology and primary team. Continue rest of management as per primary team. We are grateful to be able to participate in Mr. Brown' care. Thank you for the consult Plan of care discussed with attending Distilling Department Supervisor, Dr Ross Mathias MD PGY 1 Attending Provider Attestation/Addendum I have personally seen and examined the patient separately on the above date of service and discussed the plan of care with the resident. I reviewed the resident Dr. Mathias consultation progress note and agree with the resident findings and plan in the note above and have also edited the documentation to reflect my findings and plan. Heath Hawkins M.D. Interventional Cardiology
--- NOTE | 2024-01-30 11:06 | PC.NURSE ---
Patient refused new order for 6 units lispro ACHS at 1130. Per patient my blood sugar will drop. made aware.
[2024-01-30 13:04] LABS: Cocci Serology, IgM Negative (Negative)
--- NOTE | 2024-01-30 13:37 | PD.RESPRO ---
Documentation for date of: 01/30/24 Subjective Subjective Interval history: 01/30/2024: Overnight patient's bedside glucose was around 500; night team pushed 30 units of Lantus and 20 units of lispro which corrected patient's glucose to around 50, diet was given and patient's blood glucose improved to 160. Patient also had a positive FOBT; as result heparin for DVT prophylaxis was held. This morning, patient seen and examined in hospital bed reporting improvement in symptoms; denies any concerning symptoms such as chest pain/tightness, palpitations or shortness of breath. Patient's MRI does not show any acute process; however, there are some white matter changes/demyelinating disease pattern. Neurology is following the patient closely and has recommended EEG which is pending. Cardiology is also following the patient, TTE with echo showed a possible PFO but LINDA will not be completed his MRI is negative for stroke at this time. Patient also has grade 2 diastolic dysfunction with ejection fraction 60 to 65% but severely elevated RVSP (moderate to severe PAH); as result, patient would benefit from a right heart catheterization which will be completed on 01/30 after dialysis session. Patient will continue to take Plavix and aspirin for graft patency, pending to [facility] records. Exam Vital Signs Temp Pulse Resp BP Pulse Ox O2 Del Method O2 Flow Rate 98.3 F 64 18 157/74 H 97 Nasal Cannula 3 01/30/24 12:00 01/30/24 12:00 01/30/24 12:00 01/30/24 12:00 01/30/24 12:00 01/30/24 12:00 01/30/24 12:00 Narrative Exam Physical Exam: GENERAL: Awake, answering questions appropriately, appears stated age HEENT: NC/AT. Moist mucosa. PERRLA. Extraocular movements intact but slow CARDIO: Heart RRR, no obvious murmurs, no JVD. PULM: No coughing or visible SOB. Lungs CTA B/L. GI: Abdomen soft, NT/ND, +BS. SKIN/MSK/EXT: Left brachiocephalic AV fistula patent. No wounds/discoloration/rashes/edema/amputations. +Pedal pulses present B/L. NEURO: Oriented x3, cranial nerves II to XII intact, muscle strength 4 out of 5 bilateral upper and lower extremities, health sciences manager strength 4 out of 5, pronator drift negative, completed [id number], no focal neurologic deficit Objective Labs 01/30/24 05:32 01/30/24 05:32 Labs: Laboratory Results - last 24 hr 01/29/24 01/30/24 01/30/24 15:18 04:18 05:32 WBC 7.3 RBC 2.71 L Hgb 8.8 L Hct 26.5 L MCV 98 MCH 32.5 MCHC 33.2 RDW Std Deviation 62.2 H Plt Count 99 L Neut % (Auto) 72 Lymph % (Auto) 11 [place] % (Auto) 8 Eos % (Auto) 8 Baso % (Auto) 1 Neut # (Auto) 5.2 Lymph # (Auto) 0.8 L [place] # (Auto) 0.6 Eos # (Auto) 0.6 H Baso # (Auto) 0.0 Immature Gran # (Auto) 0.01 H Absolute Nucleated RBC 0.00 Immature Gran % 0 Nucleated RBC % 0 PT 13.1 H INR 1.2 Sodium 135 L Potassium 3.3 L Chloride 95 L Carbon Dioxide 31.5 H Anion Gap 9 BUN 29 H Creatinine 4.6 H* D Estim Creat Clear Calc 13.8 L eGFR 14 L* BUN/Creatinine Ratio 6 L Glucose [address] Glu mg/dL 240 H Hemoglobin A1c 10.0 H Calculated Osmolality 273 L Calcium 9.0 Corrected Calcium 9.2 Phosphorus 2.4 Magnesium 2.3 Total Bilirubin 0.7 AST 31 ALT 32 Alkaline Phosphatase 243 H D Total Protein 6.5 Albumin 3.8 Globulin 2.7 Albumin/Globulin Ratio 1.4 Triglycerides 40 Cholesterol 103 L LDL Cholesterol, Calc 59 HDL Cholesterol 36 L Cholesterol/HDL Ratio 2.9 L TSH 2.07 Ur Collection Type Clean Catch Urine Color Yellow Urine Clarity Clear Urine pH 8.5 H Ur Specific [place] 1.019 Urine Protein 3+ A Urine Glucose (UA) 4+ A Urine Ketones Negative Urine Blood Negative Urine Nitrite Negative Urine Bilirubin Negative Urine Urobilinogen (Auto) Negative Ur Leukocyte Esterase Negative Urine RBC 1 Urine WBC 2 Ur Squamous Epith Cells 0 Urine Bacteria None Urine Opiates Screen Negative Urine Fentanyl Screen Negative Ur Barbiturates Screen Negative U Amphetamin/Meth Scrn Negative U Benzodiazepines Scrn Negative U Cocaine Metab Screen Negative U Marijuana (THC) Screen Negative Coccidioides IgM Ab Negative Quality Measures Quality Measures stroke Suspected type of Stroke: Non Acute Last known well (date): 01/29/24 Last known well (time): 07:42 Tenecteplase given: Reason(s) Tenecteplase not given: Outside the time window not given Rehab services: PT evaluation ordered VTE Prophylaxis: pharmaceutical Antithrombotic by day 2:: not indicated (describe) (As explained in previous note.) Statin ordered: <75 y/o high intensity dose Anticoagulation ordered for A-fib or flutter (current or hx): not indicated Assessment & Plan Assessment Current Active Medications: Generic Name Dose Route Start Last Admin Trade Name Freq PRN Reason Stop Dose Admin Acetaminophen 650 mg 01/29/24 14:23 01/29/24 20:27 Acetaminophen 325 Mg Tablet PO 02/28/24 14:22 650 mg Q6H PRN Administration Pain 1-3 and/or Fever >100.1 Aspirin 81 mg 01/30/24 09:00 01/30/24 08:16 Aspirin Ec 81 Mg Tabec PO 02/29/24 08:59 81 mg QDAY SWATHI Administration Atorvastatin Calcium 80 mg 01/29/24 21:00 01/29/24 20:27 Atorvastatin Calcium 20 Mg Tablet PO 02/28/24 14:59 80 mg HS SWATHI Administration Clopidogrel Bisulfate 75 mg 01/30/24 09:00 01/30/24 08:16 Clopidogrel Bisulfate 75 Mg Tablet PO 02/29/24 08:59 75 mg QDAY SWATHI Administration Dextrose 25 ml 01/29/24 14:23 01/30/24 05:51 Dextrose 50%-Water Inj 50 Ml Syringe IV 02/28/24 14:22 25 ml Q15MIN PRN Administration BG 50-70 responsive npo pt Dextrose 50 ml 01/29/24 14:23 Dextrose 50%-Water Inj 50 Ml Syringe IV 02/28/24 14:22 Q15MIN PRN BG <50 OR BG <70 & pt unresponsive Fluconazole 200 mg 01/29/24 15:20 01/30/24 08:16 Fluconazole 100 Mg Tablet PO 02/05/24 15:19 200 mg QDAY SWATHI Administration Glucagon 1 mg 01/29/24 14:23 Glucagon Inj 1 Mg Vial IM Q15MIN PRN BG <70, and no IV access Heparin Sodium (Porcine) 5,000 unit 01/29/24 21:00 01/29/24 20:51 Heparin Sod Inj 5000 Unit/Ml Vial SC 02/12/24 20:59 5,000 unit Q12HR SWATHI Administration Insulin Glargine 45 unit 01/30/24 21:00 Insulin Glargine (Lantus) 5 Unit/0.05 Ml (Per 5 Units) SC 02/29/24 20:59 HS SWATHI Insulin Human Lispro 0 unit 01/30/24 01:43 01/30/24 11:05 Insulin Lispro (Admelog) 1 Unit/0.01 Ml Unit SC 02/28/24 20:59 Not Given ACHS SWATHI Protocol Insulin Human Lispro 6 unit 01/30/24 11:30 01/30/24 11:06 Insulin Lispro (Admelog) 1 Unit/0.01 Ml Unit SC 02/29/24 11:29 Not Given ACHS [facility] Labetalol HCl 10 mg 01/29/24 14:57 Labetalol Inj 5 Mg/Ml Vial 20 Ml IVP 02/28/24 14:56 Q4HR PRN Systolic >220 Ondansetron HCl 4 mg 01/29/24 11:32 Ondansetron Inj 2 Mg/Ml Inj 2 Ml IV 02/28/24 11:31 Q4HR PRN NAUSEA OR VOMITING Sennosides 1 tab 01/29/24 14:23 Senna Tablet PO 02/28/24 14:22 QDAY PRN constipation Protocol Sevelamer Carbonate 2,400 mg 01/29/24 17:30 01/30/24 11:46 Sevelamer Carbonate 800 Mg Tablet PO 02/28/24 17:29 2,400 mg TIDWM [facility] Administration Plan 58-year-old male with past medical history of coronary artery disease s/p CABG (May 05, 2021), CHF, ESRD on HD (M/W/F), hypertension, insulin-dependent diabetes (unsure whether type I or type II), hyperlipidemia presents with acute change in mentation and worsening headache will be admitted to the hospitalist team for stroke rule out versus metabolic encephalopathy; neurologist and quarter doper have been consulted to follow patient during hospital stay. #Acute encephalopathy, resolved Initially thought to be possible CVA versus TIA versus metabolic encephalopathy; now likely metabolic/hypertensive urgency vs. demyelinating disease Patient presented with worsening headache in the back of his head along with weakness; did not lose consciousness per HPI CT head was negative CTA of head and neck showed incomplete filling of the distal P1 segment of the left posterior cerebral artery and neck arterial sclerosis Teleneurology was consulted and provided the recommendations MRI brain without contrast shows: Negative for any acute process, but showed multiple foci of increased signal in the white matter, demyelinating disease pattern versus microvascular white matter change U/S Carotid shows b/l carotid 0-10% stenosis Echo with possible PFO; will defer LINDA as patient's MRI is negative for acute process Speech eval passed Plan: EEG pending Neurology, Dr. Crystal consulted appreciate recommendations Head of bed greater than 30 degrees PT eval pending #Coccidiomycosis infection #Possible left lung mass Patient apparently was told that he has coccidiomycosis also a left lobe nodule was noted during his appointment with [facility] Plan: Continue fluconazole 200 mg as the patient is ESRD Patient will need to follow-up with his appointment on February 05 with [facility] #Pulmonary Arterial Hypertension Estimated RVSP 68mmHg. Moderate to severe PAH as seen on LINDA Likely Group 2 vs. Group 1 or 3 pulmonary hypertension Patient is a ESRD patient which can explain following; however, cannot rule out lung pathology as listed above Cardiology following, appreciate recommendations Plan: Patient could benefit from right heart catheterization vs. following up with transplant center at [facility] for workup Cardiology will go forward with right heart cath on 01/30 after dialysis session Patient will need close follow-up/referral to reverse unit operator fisherman outpatient #ESRD on HD (M/W/F) Patient has been on dialysis for about 3 years now; March 2021 start date Patient states that usually they take about 2.5 L of ultrafiltration per session Of note, patient went to dialysis on Friday 01/26 as on the 01/25 session did not take off enough fluid On 01/28 (today) they took out 4.3 L ultrafiltration per patient Patient follows up with Dr. Nguyen, nephrology Patient also apparently follows up with [facility] center; next appointment is on February 05 as stated above Plan: Consulted Dr. Nguyen, appreciate recommendations Dialysis likely tomorrow 01/30 Will continue sevelamer 800 mg 3 tablets 3 times daily Premeal #History of coronary artery disease s/p CABG #Hyperlipidemia #HFpEF (EF 60-65%), grade II diastolic dysfunction Patient with significant history of coronary artery disease, CABG on May 05, [address] Saldana in [facility] cardiology Patient is on guideline based medical therapy for congestive heart failure; losartan, carvedilol, isosorbide mononitrate Patient also takes atorvastatin 40 mg daily LINDA with bubble shows: Positive bubble study with bubbles appearing after 5th cycle indicating possibe pulmonary AV shunt. Normal LV size and function. Mild LVH. Grade II diastolic dysfunction. Estimated EF 60-65% Moderate Rv and RA dilatation. Estimated RVSP 68mmHg. Moderate to severe PAH. Mild LA dilatation. Mild MR, TR, PI. Trace AI. IVC dilated. ASCVD risk score 12.2% of cardiovascular event in next 10 years Plan: Will continue aspirin and plavix for graft patency TTE ordered, pending read Will do 40mg atorvastatin Restarting losartan, coreg and iso moninitrate on 01/30 #Hypertension Patient has known history of hypertension Takes the medications highlighted above along with clonidine 0.1 twice daily, amlodipine 10 mg daily, Lasix 40 mg twice daily Plan: Restarted patient on home Lasix 40mg po bid and metolazone 5mg po qday Will restart clonidine, coreg, isosorbide nitrate and losartan on 01/30 Will hold amlodipine for now #Insulin-dependent diabetes A1c 10.0 Patient was apparently diagnosed in his 30s and was started on insulin right away Unsure if this is type I versus type 2 diabetes mellitus Patient apparently takes 45 units of insulin Basaglar Plan: Lantus 45 Sliding scale insulin Lispro d/c as patient hypoglycemic #FOBT positive Patient is not exhibited in any signs of acute blood loss Denies hematuria, hematochezia, melena or hematemesis Plan: Follow-up outpatient with PCP for further workup; GI referral - possible colonoscopy need Hospital Management: Lines: PIV Bowel: Senna as needed Diet: Renal GI prophylaxis: Not required DVT prophylaxis: SCD Dispo: Stroke ruled out with MRI, EEG pending Code: DNR Patient seen and examined with attending Dr. Driver and senior resident Dr. Navid Coppola, PGY-1 Attending Provider Attestation/Addendum In short, this is a 58-year-old male with a significant past medical history of ESRD on HD, hypertension, CABG, type 2 diabetes, pulmonary mass pending workup, and coccidiomycosis, who presented to [facility] on 01/28 for CVA workup. ASSESSMENT/PLAN: #CVA rule out ?Initial CT head negative. CTA head and neck negative for any arterial stenosis however did demonstrate incomplete filling of the distal P1 segment in the left DIGITAL CONTENT PRODUCER ?MRI brain negative for any acute intracranial pathology however did suggest chronic white matter changes versus demyelinating disease 1. Possible LINDA in setting of PFO was demonstrated on echocardiogram, will touch base with cardiology however MRI brain today negative for any acute intracranial pathology 2. Neurology consulted, appreciate recommendations, will continue aspirin alone for now per neurology recommendations, Plavix discontinued due to possible interaction with fluconazole however we will discuss this with the specialist as the patient does have multiple stents 4. Cardiology consulted, possible LINDA for further evaluation of possible AV shunt, appreciate recommendations #HFpEF, EF 60 to 65% #Mitral regurgitation #? AV shunt #History of essential hypertension #History of CAD status post four-vessel stent in 2021 #History of hyperlipidemia -TTE 01/29/24: Positive bubble study with bubbles appearing after 5th cycle indicating possibe pulmonary AV shunt. Cannot rule out a PFO based on the study and recommend LINDA if high index of clinical suspicion. Normal LV size and function. Mild LVH. Grade II diastolic dysfunction. Estimated EF 60-65% Moderate Rv and RA dilatation. Estimated RVSP 68mmHg. Moderate to severe PAH. Mild LA dilatation. Mild MR, TR, PI. Trace AI. IVC dilated. 1. Cardiology consulted, appreciate recommendations 2. Strict I's and O's, daily weights, fluid restrict to 1500 mL/day, cardiac diet 3. Will continue Lasix and metolazone likely starting on 01/30 when permissive hypertension window ends. Will also continue losartan and Coreg at that time 4. Possible LINDA to evaluate AV shunt however considering MRI is negative, likely this will not happen 5. Will continue aspirin and statin for now #Coccidiomycosis infection -Continue renally dosed fluconazole 200 mg daily #ESRD on HD (MWF) # Anemia of CKD 1. Nephrology consulted for routine hemodialysis 2. Hemoglobin stable, continuing to monitor daily #History of type 2 diabetes, on insulin at home -A1c is 10 1. Accu-Cheks, patient's blood glucose has been well-controlled, will continue sliding scale insulin for now Antimicrobials: None CODE STAUS: FULL DISPO: Likely discharge home in 1 to 2 days following specialist recommendations and further workup
[2024-01-30] MEDS: metOLazone 2.5 MG TABLET 5 MG PO (14:57)
--- NOTE | 2024-01-30 18:02 | PC.DIETICIAN ---
Nutrition Education (A1C=10.0): Patient was educated on dietary management of diabetes; written material was provided for future reference. *Consider prescribing Edgeware Rigo 2 + [place]on prior to discharge.
--- NOTE | 2024-01-30 19:58 | RESP.EEG ---
EEG has been completed and is ready for MD interpretation
[2024-01-30] MEDS: Furosemide 40 MG TABLET PO (20:41)
[2024-01-30] MEDS: ATORVASTATIN CALCIUM 20 MG TABLET 40 MG PO (20:41)
--- NOTE | 2024-01-30 23:26 | PD.NEUROPROG ---
Documentation for date of: 01/30/24 Subjective Subjective Interval history: Patient is in telemetry. No new symptoms reported. Exam - Neurology Vital Signs Temp Pulse Resp BP Pulse Ox O2 Del Method O2 Flow Rate 98.5 F 70 18 158/83 H 96 Nasal Cannula 3 01/30/24 20:00 01/30/24 20:41 01/30/24 20:00 01/30/24 20:41 01/30/24 20:00 01/30/24 20:00 01/30/24 20:00 Narrative Exam GENERAL APPEARANCE: Well developed, well-nourished in no acute distress. HEENT: Normocephalic, atraumatic, extraocular movements intact. Pupils: Equal reacting to light and accommodation NECK: Supple, no JVD or bruits. CARDIOVASULAR: Heart: S1, S2 heard, regular without S3-S4 or murmur no rubs or gallops. LUNGS/CHEST: Clear to auscultation bilaterally. No rails, rhonchi, or wheezing. Normal inspection. ABDOMEN: Soft, nontender, with normal bowel sounds. No pulsatile masses. No rebound, rigidity, or guarding. Normal inspection and palpation. EXTREMITIES: Normal inspection and palpation. No edema, clubbing or cyanosis. SKIN: Warm and dry without rashes. Normal inspection. MUSCULOSKELETAL: No cervical, thoracic, lumbar or midline bony tenderness. Normal inspection. NEURO: Alert, awake and oriented x3. Cranial nerves: II through XII grossly intact. Speech and language: Normal with no dysarthria or dysphasia. Motor system: Tone and bulk: Normal: Strength: 5 out of 5 in all 4 extremities; No pronator drift noted. Deep tendon reflexes: 2+ bilaterally symmetrical. Plantar reflex: Downgoing bilaterally. Sensory system: Intact to all modalities of sensation bilaterally. Coordination: Intact to [id number] and [id number] test bilaterally. No ataxia, no dysmetria, or dysdiadochokinesia noted. No intention tremors noted. Gait: Not tested. No signs of meningeal irritation noted. PSYCHIATRIC: Normal mood and affect. Objective Labs 01/30/24 05:32 01/30/24 05:32 Labs: Laboratory Results - last 24 hr 01/29/24 01/30/24 01/30/24 15:18 04:18 05:32 WBC 7.3 RBC 2.71 L Hgb 8.8 L Hct 26.5 L MCV 98 MCH 32.5 MCHC 33.2 RDW Std Deviation 62.2 H Plt Count 99 L Neut % (Auto) 72 Lymph % (Auto) 11 [place] % (Auto) 8 Eos % (Auto) 8 Baso % (Auto) 1 Neut # (Auto) 5.2 Lymph # (Auto) 0.[address] [place] # (Auto) 0.6 Eos # (Auto) 0.6 H Baso # (Auto) 0.0 Immature Gran # (Auto) 0.01 H Absolute Nucleated RBC 0.00 Immature Gran % 0 Nucleated RBC % 0 PT 13.1 H INR 1.2 Sodium 135 L Potassium 3.3 L Chloride 95 L Carbon Dioxide 31.5 H Anion Gap 9 BUN 29 H Creatinine 4.6 H* D Estim Creat Clear Calc 13.8 L eGFR 14 L* BUN/Creatinine Ratio 6 L Glucose [address] Glu mg/dL 240 H Hemoglobin A1c 10.0 H Calculated Osmolality 273 L Calcium 9.0 Corrected Calcium 9.2 Phosphorus 2.4 Magnesium 2.3 Total Bilirubin 0.7 AST 31 ALT 32 Alkaline Phosphatase 243 H D Total Protein 6.5 Albumin 3.8 Globulin 2.7 Albumin/Globulin Ratio 1.4 Triglycerides 40 Cholesterol 103 L LDL Cholesterol, Calc 59 HDL Cholesterol 36 L Cholesterol/HDL Ratio 2.9 L TSH 2.07 Ur Collection Type Clean Catch Urine Color Yellow Urine Clarity Clear Urine pH 8.5 H Ur Specific [place] 1.019 Urine Protein 3+ A Urine Glucose (UA) 4+ A Urine Ketones Negative Urine Blood Negative Urine Nitrite Negative Urine Bilirubin Negative Urine Urobilinogen (Auto) Negative Ur Leukocyte Esterase Negative Urine RBC 1 Urine WBC 2 Ur Squamous Epith Cells 0 Urine Bacteria None Urine Opiates Screen Negative Urine Fentanyl Screen Negative Ur Barbiturates Screen Negative U Amphetamin/Meth Scrn Negative U Benzodiazepines Scrn Negative U Cocaine Metab Screen Negative U Marijuana (THC) Screen Negative Coccidioides IgM Ab Negative Assessment & Plan Assessment and plan (1) Altered mental status: Status: Resolved Assessment and plan: CT head: Negative CT angiogram of the head and neck: Neck arterial stenoses Incomplete filling of the distal P1 segment left posterior cerebral artery, clinical correlation advised Carotid Doppler: Negative for stenosis on both sides Continue with aspirin 81 mg, blood pressure control and better diabetes control. Cocci serology: Pending MRI brain showed chronic white matter changes consistent with small vessel disease rather than demyelination (2) ESRD (end stage renal disease): Status: Chronic Assessment and plan: On maintenance hemodialysis, On the waiting list for renal transplant (3) Headache: Status: Acute Assessment and plan: Improving (4) Anemia: Status: Chronic Assessment and plan: Secondary to chronic kidney disease (5) Diabetes mellitus with hyperglycemia: Status: Chronic Assessment and plan: Needs better control
[2024-01-31] VITALS (28 sets, daily range): BP systolic 144–190; BP diastolic 72–97; PULSE 63–78; RESP 14–18; TEMP 36.5–37; O2SAT 92–98; BMI 23.3
[2024-01-31 05:58] LABS: Basophils % (Auto) 0 % (0-2.5); Eosinophils # (Auto) 0.7 Thou/mm3 (0.0-0.5); Eosinophils % (Auto) 8 % (0-10); Hematocrit 26.8 % (41.0-53.0); Immature Granulocytes % (Auto) 0 % (0-0); Immature Granulocytes Auto 0.02 Thou/mm3 (0.00-0.00); Lymphocytes # (Auto) 0.8 Thou/mm3 (1.0-4.8); Lymphocytes % (Auto) 9 % (10-50); Mean Corpuscular HGB Conc 32.8 g/dl (31.0-37.0); Mean Corpuscular Hemoglobin 32.1 pg (25.0-35.0); Mean Corpuscular Volume 98 fL (80-100); Monocytes # (Auto) 0.8 Thou/mm3 (0.0-0.8); Monocytes % (Auto) 9 % (0-12); Neutrophils # (Auto) 6.7 Thou/mm3 (1.8-7.7); Neutrophils % (Auto) 75 % (37-80); Nucleated Red Blood Cell % 0 /100 WBC (0); Platelet Count 103 Thou/mm3 (140-440); RDW Standard Deviation 63.2 fL (35.1-43.9); Red Blood Count 2.74 Miln/mm3 (4.50-5.90)
[2024-01-31 05:59] LABS: Hemoglobin 8.8 g/dL (13.5-16.0)
[2024-01-31 06:33] LABS: Alanine Aminotransferase 30 U/L (10-49); Albumin, Serum 3.8 gm/dL (3.5-5.0); Albumin/Globulin Ratio 1.4 (1.2-2.2); Alkaline Phosphatase 239 U/L (46-116); Anion Gap 8 (7-16); Aspartate Amino Transferase 32 U/L (0-34); BUN/Creatinine Ratio 8 Ratio (12-20); Bilirubin,Total 0.7 mg/dL (0.3-1.2); Blood Urea Nitrogen 49 mg/dL (9-23); Calcium (Corrected) 9.2 mg/dL (8.5-10.1); Carbon Dioxide 29.7 mMol/L (20.0-31.0); Chloride 98 mMol/L (98-107); Creatinine (Component) 6.4 mg/dL (0.6-1.3); Estimated Creatinine Clearance 9.5 mL/min (>60); Globulin 2.8 gm/dL (2.3-3.5); Glucose 63 mg/dL (74-106); Osmolality,Calculated 282 (275-295); Potassium 4.4 mMol/L (3.4-5.1); Sodium 136 mMol/L (136-145); Total Protein 6.6 gm/dL (5.7-8.2); eGFR 10 See Note
--- NOTE | 2024-01-31 07:34 | PC.NURSE ---
Patient transported to dialysis via bed per acoustical engineerLorna. Patient is awake, alert and oriented with no signs of acute distress.
--- NOTE | 2024-01-31 09:01 | PC.SS ---
Patient needs a rollator walker for home. The diagnosis creates mobility limitation that significantly impairs ability to participate in the patients activities of daily living either in their entirety, or in a reasonable time frame. Also the patient is able to safely use the walker and the patient?s mobility is sufficiently resolved with the use of the walker and cane has been ruled out.
--- NOTE | 2024-01-31 09:02 | PC.SS ---
Follow up note: Patient worked with PT yesterday and they recommended a rollator walker and HH services. Patient has no preference for HH agency. His PcP: Alessandra Walker NP at [facility]. Last appt a month ago.
--- NOTE | 2024-01-31 10:35 | PD.RESPRO ---
Documentation for date of: 01/31/24 Subjective Subjective Interval history: Patient was seen and examined at Dialysis unit this AM. No acute exents overnight. Patient tolerating diet, adequate urine output and mentation is at baseline. Patient has no complaints. Denies any headaches, chest pain, palpitations or SOB Patient is having dialysis today with goal of 3.5L Ultrafiltration Potassium is K 4.4 and Mg 2.5. Please maintain K>3.5 as patient is ESRD and Mg >2 at all times to avoid any arryhtmias MRI brain showed chronic white matter changes consistent with small vessel disease rather than demyelination. No acute infarcts noted. In light of no infarct seen on MRI no need for LINDA at this point. Will need a right heart cath eventually for further evaluation of the etiology of the PAH after his stroke workup is completed and also can be done as outpatient after adequate fluid removal. Patient also given the option to follow[place]up with [facility] [place] [place] workup of PAH where he is having his lung biopsy performed in the next few weeks Exam Vital Signs Temp Pulse Resp BP Pulse Ox O2 Del Method O2 Flow Rate 97.7 F 75 18 184/90 H 97 Nasal Cannula 2 01/31/24 10:20 01/31/24 10:30 01/31/24 10:20 01/31/24 10:30 01/31/24 10:20 01/31/24 04:00 01/31/24 10:20 Narrative Exam Constitutional Alert, oriented x 3 and comfortable. Young male on O2 via NC HEENT Vision grossly intact. Patent nares. Trachea midline Respiratory Midline sternotomy scar noted and decreased AE b/l Cardiovascular S1 and S2 audible, RRR. 3/6 systolic murmur at apex with radiation to axilla, no carotid bruit. JVD not assessed Abdominal Tense, distended - less than before and non tender to palpation in all quadrants. Umbilicus everted, BS + Genitourinary No bladder tenderness, no flank pain. Normal to palpation Musculoskeletal Extremities tone within normal limits. No LE edema. Neurological CN II - XII grossly intact. Extremity motor and sensation grossly intact. Skin Warm, dry and intact. Left brachiocephalic fistula, thrill palpated Psychiatric Patient has good affect, is cooperative Objective Labs 01/31/24 05:44 01/31/24 05:44 Labs: Laboratory Results - last 24 hr 01/29/24 01/31/24 15:18 05:44 WBC 9.0 RBC 2.74 L Hgb 8.8 L Hct 26.8 L MCV 98 MCH 32.1 MCHC 32.8 RDW Std Deviation 63.2 H Plt Count 103 L Neut % (Auto) 75 Lymph % (Auto) 9 L Clayton % (Auto) 9 Eos % (Auto) 8 Baso % (Auto) 0 Neut # (Auto) 6.7 Lymph # (Auto) 0.8 L Clayton # (Auto) 0.8 Eos # (Auto) 0.7 H Baso # (Auto) 0.0 Immature Gran # (Auto) 0.02 H Absolute Nucleated RBC 0.00 Immature Gran % 0 Nucleated RBC % 0 Sodium 136 Potassium 4.4 D Chloride 98 Carbon Dioxide 29.7 Anion Gap 8 BUN 49 H Creatinine 6.4 H* D Estim Creat Clear Calc 9.5 L eGFR 10 L* BUN/Creatinine Ratio 8 L Glucose 63 L Calculated Osmolality 282 Calcium 9.0 Corrected Calcium 9.2 Total Bilirubin 0.7 AST 32 ALT 30 Alkaline Phosphatase 239 H Total Protein 6.6 Albumin 3.8 Globulin 2.8 Albumin/Globulin Ratio 1.4 Coccidioides IgM Ab Negative Quality Measures Quality Measures stroke Suspected type of Stroke: Non Acute Last known well (date): 01/29/24 Last known well (time): 07:42 Tenecteplase given: Reason(s) Tenecteplase not given: Outside the time window not given Rehab services: PT evaluation ordered VTE Prophylaxis: pharmaceutical Antithrombotic by day 2:: ordered Statin ordered: <75 y/o high intensity dose Anticoagulation ordered for A-fib or flutter (current or hx): not indicated Assessment & Plan Assessment Current Active Medications: Generic Name Dose Route Start Last Admin Trade Name Freq PRN Reason Stop Dose Admin Acetaminophen 650 mg 01/29/24 14:23 01/29/24 20:27 Acetaminophen 325 Mg Tablet PO 02/28/24 14:22 650 mg Q6H PRN Administration Pain 1-3 and/or Fever >100.1 Aspirin 81 mg 01/30/24 09:00 01/30/24 08:16 Aspirin Ec 81 Mg Tabec PO 02/29/24 08:59 81 mg QDAY SWATHI Administration Atorvastatin Calcium 40 mg 01/30/24 21:00 01/30/24 20:41 Atorvastatin Calcium 20 Mg Tablet PO 02/29/24 20:59 40 mg HS SWATHI Administration Carvedilol 12.5 mg 01/31/24 08:00 Carvedilol 12.5 Mg Tablet PO 03/01/24 07:59 BIDWM SWATHI Clonidine 0.1 mg 01/31/24 09:00 Clonidine Hcl 0.1 Mg Tablet PO 03/01/24 08:59 BID SWATHI Clopidogrel Bisulfate 75 mg 01/31/24 09:00 Clopidogrel Bisulfate 75 Mg Tablet PO 03/01/24 08:59 QDAY SWATHI Dextrose 25 ml 01/29/24 14:23 01/30/24 05:51 Dextrose 50%-Water Inj 50 Ml Syringe IV 02/28/24 14:22 25 ml Q15MIN PRN Administration BG 50-70 responsive npo pt Dextrose 50 ml 01/29/24 14:23 Dextrose 50%-Water Inj 50 Ml Syringe IV 02/28/24 14:22 Q15MIN PRN BG <50 OR BG <70 & pt unresponsive Fluconazole 200 mg 01/29/24 15:20 01/30/24 08:16 Fluconazole 100 Mg Tablet PO 02/05/24 15:19 200 mg QDAY SWATHI Administration Furosemide 40 mg 01/30/24 21:00 01/30/24 20:41 Furosemide 40 Mg Tablet PO 02/29/24 20:59 40 mg BID SWATHI Administration Glucagon 1 mg 01/29/24 14:23 Glucagon Inj 1 Mg Vial IM Q15MIN PRN BG <70, and no IV access Heparin Sodium (Porcine) 5,000 unit 01/29/24 21:00 01/29/24 20:51 Heparin Sod Inj 5000 Unit/Ml Vial SC 02/12/24 20:59 5,000 unit Q12HR SWATHI Administration Insulin Glargine 45 unit 01/30/24 21:00 01/30/24 20:45 Insulin Glargine (Lantus) 5 Unit/0.05 Ml (Per 5 Units) SC 02/29/24 20:59 Not Given HS [facility] Insulin Human Lispro 0 unit 01/30/24 01:43 01/30/24 20:45 Insulin Lispro (Admelog) 1 Unit/0.01 Ml Unit SC 02/28/24 20:59 Not Given ACHS [facility] Protocol Isosorbide Mononitrate 30 mg 01/31/24 09:00 Isosorbide Er Mononitrate 30 Mg Tabcr PO 03/01/24 08:59 QDAY SWATHI Labetalol HCl 10 mg 01/29/24 14:57 Labetalol Inj 5 Mg/Ml Vial 20 Ml IVP 02/28/24 14:56 Q4HR PRN Systolic >220 Losartan Potassium 100 mg 01/31/24 07:40 Losartan Potassium 25 Mg Tablet PO 03/01/24 07:39 QDAY SWATHI Metolazone 5 mg 01/30/24 14:15 01/30/24 14:57 Metolazone 2.5 Mg Tablet PO 02/29/24 14:14 5 mg QDAY SWATHI Administration Ondansetron HCl 4 mg 01/29/24 11:32 Ondansetron Inj 2 Mg/Ml Inj 2 Ml IV 02/28/24 11:31 Q4HR PRN NAUSEA OR VOMITING Sennosides 1 tab 01/29/24 14:23 Senna Tablet PO 02/28/24 14:22 QDAY PRN constipation Protocol Sevelamer Carbonate 2,400 mg 01/29/24 17:30 01/30/24 17:10 Sevelamer Carbonate 800 Mg Tablet PO 02/28/24 17:29 2,400 mg TIDWM SWATHI Administration Plan 58-year-old male with past medical history of coronary artery disease s/p 4 vessel CABG (May 05, 2021 in [place]), chronic diastolic CHF [60-65] ESRD on HD (M/W/F), essential hypertension, insulin-dependent diabetes (unsure whether type I or type II), hyperlipidemia presents to the ED on 01/28 with acute change in mentation and worsening headache.Patient was admitted for stroke rule out versus metabolic encephalopathy. Patient was admitted for stroke rule out versus metabolic encephalopathy. Cardiology was consulted for moderate to severe PAH along with positive bubble study. 1. Chronic diastolic heart failure with preserved ejection fraction [60-65%] 2. Possible AV shunt 3. Mitral regurgitation 4. Essential hypertension On admission patient reported intermittent shortness of breath associated with a 3 pillow orthopnea and PND. Patient also had questionable presyncope prior to admission. Patient's home medication metolazone 5 Mg p.o. daily, losartan 100 Mg p.o. daily, isosorbide mononitrate 30 Mg p.o. daily, furosemide 40 Mg p.o. twice daily and carvedilol 12.5 Mg p.o. twice daily as part of GDMT. No recent BNP. Troponin negative on admission. Transthoracic echocardiogram completed on 01/28 findings include: Positive bubble study with bubbles appearing after 5th cycle indicating possibe pulmonary AV shunt. Cannot rule out a PFO based on the study and recommend LINDA if high index of clinical suspicion. Normal LV size and function. Mild LVH. Grade II diastolic dysfunction. Estimated EF 60-65% Moderate Rv and RA dilatation. Estimated RVSP 68mmHg. Moderate to severe PAH. Mild LA dilatation. Mild MR, TR, PI. Trace AI. IVC dilated. Reviewed echocardiogram and as noted above the patient does have moderate to severe PAH with an RVSP of around 70 mmHg with moderate RV and RA dilatation. Unclear etiology for the moderate to severe PAH. Patient will need further workup of the PAH but patient apparently follows up with [facility] for his [place] workup and recently found to have some lung lesions regarding a cocci or fungal infection of the lungs along with pulmonary nodule for which she has a biopsy scheduled on February 06, 2024. Plan: ? Strict input output charting ? Fluid restriction of 1500 cc/day ? Daily weight ? 2G sodium restricted diet ? Continue home diuretic furosemide and metolazone once out of window for permissive hypertension. ? Recommend to also continue losartan and Coreg as part of GDMT and isosorbide mononitrate and losartan for blood pressure control - Will need a right heart cath eventually for further evaluation of the etiology of the PAH after his stroke workup is completed and also can be done as outpatient after adequate fluid removal. Patient also given the option to follow-up with [facility] for further workup of PAH where he is having his lung biopsy performed in the next few weeks. - Follow up either in Cardiology clinic within 1 week of discharge or at [facility] 5. Pulmonary arterial hypertension?etiology to be determined Etiology to be determined group I versus group II. Patient has history of CHF with CABG 2 years ago at [facility] possibly group 2. RVSP 68 mmHg. Moderate to severe PAH with moderate RV and RA dilation as seen on TTE completed on 01/28. Will need a right heart cath eventually for further evaluation of the etiology of the PAH after his stroke workup is completed and also can be done as outpatient after adequate fluid removal. Patient also given the option to follow-up with [facility] for further workup of PAH where he is having his lung biopsy performed in the next few weeks. 6. Possible pulmonary AV shunt On transthoracic echocardiogram there was a positive bubble study with bubbles appearing after the fifth cycle indicating possible pulmonary AV shunt. Patient has history of GERD in the past, but denies any recent symptoms of acid reflux, heartburn, chest pain Regarding the positive bubble study reviewed the transthoracic echo and patient had a positive bubble study only after the fifth cycle indicating possible small pulmonary AV shunt. Will mediate LINDA for further characterization and to rule out a PFO. Plan: - MRI was negative for any acute infarcts, no need to pursue LINDA at this time. 7. CAD s/p four-vessel CABG in [place] [2021] 8. Hyperlipidemia Recommend to continue aspirin and clopidogrel to prevent thrombosis of grafts Recommend to continue high intensity statin 9. ESRD on HD [M/W/F] Patient appears to be volume overloaded with dilated IVC and patient appears to be volume overloaded with IVC dilated too. Patient has a history of end-stage renal disease on hemodialysis and continue dialysis for fluid management and would recommend additional fluid removal during each session of dialysis Continue management as per primary team and Nephrolgy 10. IDDM No recent HbA1c on file. Continue management as per primary team 11. History of pulmonary nodule/mass for investigation Patient follows up at [facility] for possible cocci/fungal infection of his lung and left sided pulmonary nodule. Scheduled for biopsy on February 06, 2024. 12. Acute encephalopathy - resolved 13. CVA versus TIA - ruled out Patient presents with worsening headache in the back of his head along with weakness; did not lose consciousness per HPI The symptoms began before dialysis session at 4 AM and progressively worsened Per patient, he was able to ambulate out of his housing unit to get to his ex-'s house and notify them that he was feeling weak and had worsening headache In the ED, NIHSS score was 20 CT head was negative CTA of head and neck showed incomplete filling of the distal P1 segment of the left posterior cerebral artery and neck arterial sclerosis MRI brain showed chronic white matter changes consistent with small vessel disease rather than demyelination. No acute infarcts noted Continue management as per neurology and primary team. Continue rest of management as per primary team. We are grateful to be able to participate in Mr. Brown' care. Thank you for the consult Plan of care discussed with attending [employer], Dr Ross Mathias MD PGY 1 Attending Provider Attestation/Addendum I have personally seen and examined the patient separately on the above date of service and discussed the plan of care with the resident. I reviewed the resident Dr. Mathias consultation progress note and agree with the resident findings and plan in the note above and have also edited the documentation to reflect my findings and plan. Heath Hawkins M.D. Interventional Cardiology
[2024-01-31 10:50] LABS: Magnesium 2.5 mg/dL (1.6-2.6)
--- NOTE | 2024-01-31 11:00 | PC.NURSE ---
Patient returned from dialysis with no signs of acute distress.
--- NOTE | 2024-01-31 11:15 | PC.NURSE ---
Per Dr. Abdon nicholas to administer patients morning medication late; patient was at dialysis at time ordered.
[2024-01-31] MEDS: cloNIDine HCL 0.1 MG TABLET PO ×2 (12:01→21:22)
[2024-01-31] MEDS: LOSARTAN POTASSIUM 25 MG TABLET 100 MG PO (12:02)
[2024-01-31] MEDS: metOLazone 2.5 MG TABLET 5 MG PO (12:02)
[2024-01-31] MEDS: Furosemide 40 MG TABLET PO ×2 (12:03→21:21)
[2024-01-31] MEDS: CLOPIDOGREL BISULFATE 75 MG TABLET PO (12:03)
[2024-01-31] MEDS: ISOSORBIDE ER MONONITRATE 30 MG TABCR PO (12:03)
[2024-01-31] MEDS: carVEDILOL 12.5 MG TABLET PO ×2 (12:03→16:59)
[2024-01-31] MEDS: ASPIRIN EC 81 MG TABEC PO (12:04)
[2024-01-31] MEDS: SEVELAMER CARBONATE 800 MG TABLET 2400 MG PO ×2 (12:05→16:58)
[2024-01-31] MEDS: INSULIN LISPRO (AdmeLOG) 1 UNIT/0.01 ML UNIT SC ×2 (12:19→16:58)
[2024-01-31 12:49] LABS: Cocci Serology, IgG Negative (Negative)
--- NOTE | 2024-01-31 13:35 | ESPR_ITS ---
<Statement entered by Gin Crystal MD - 01/31/24 16:51> I discussed with and supervised the nutrition intern physician who took care of this patient. I personally saw and examined the patient and discussed the assessment and plan with the entire medicine team, including my attending , I agree with most of the assessment and plan as documented below Gin Crystal M.D. PGY-2 Documentation for date of: 01/31/24 Subjective Subjective Interval history: 01/31/2024: Overnight no acute events to report. Patient seen and examined in hospital bed reporting improvement in presenting symptoms; denies having any shortness of breath, chest pain, new headache/dizziness. Cardiology recommends that the patient be worked up for pulmonary arterial hypertension outpatient with either right heart catheterization or to follow-up with transplant center at [facility]. Will discontinue Plavix as patient needs to be off it prior to lung biopsy with [facility] on February 05 (off for at least 5 days). Patient is pending an EEG which will be read by neurologist; moreover, if results are negative will likely be discharged on the following day. Exam Vital Signs Temp Pulse Resp BP Pulse Ox O2 Del Method O2 Flow Rate 97.8 F 76 18 178/90 H 92 L Room Air 2 01/31/24 12:00 01/31/24 12:03 01/31/24 12:00 01/31/24 12:03 01/31/24 12:00 01/31/24 12:00 01/31/24 10:20 Narrative Exam Physical Exam: GENERAL: Awake, answering questions appropriately, appears stated age HEENT: NC/AT. Moist mucosa. PERRLA. Extraocular movements intact but slow CARDIO: Heart RRR, no obvious murmurs, no JVD. PULM: No coughing or visible SOB. Lungs CTA B/L. GI: Abdomen soft, NT/ND, +BS. SKIN/MSK/EXT: Left brachiocephalic AV fistula patent. No wounds/discoloration/rashes/edema/amputations. +Pedal pulses present B/L. NEURO: Oriented x3, cranial nerves II to XII intact, muscle strength 4 out of 5 bilateral upper and lower extremities, grain picker strength 4 out of 5, pronator drift negative, completed [id number], no focal neurologic deficit Objective Labs 01/31/24 05:44 01/31/24 05:44 Labs: Laboratory Results - last 24 hr 01/29/24 01/31/24 15:18 05:44 WBC 9.0 RBC 2.74 L Hgb 8.8 L Hct 26.8 L MCV 98 MCH 32.1 MCHC 32.8 RDW Std Deviation 63.2 H Plt Count 103 L Neut % (Auto) 75 Lymph % (Auto) 9 L [place] % (Auto) 9 Eos % (Auto) 8 Baso % (Auto) 0 Neut # (Auto) 6.7 Lymph # (Auto) 0.8 L [place] # (Auto) 0.8 Eos # (Auto) 0.7 H Baso # (Auto) 0.0 Immature Gran # (Auto) 0.02 H Absolute Nucleated RBC 0.00 Immature Gran % 0 Nucleated RBC % 0 Sodium 136 Potassium 4.4 D Chloride 98 Carbon Dioxide 29.7 Anion Gap 8 BUN 49 H Creatinine 6.4 H* D Estim Creat Clear Calc 9.5 L eGFR 10 L* BUN/Creatinine Ratio 8 L Glucose 63 L Calculated Osmolality 282 Calcium 9.0 Corrected Calcium 9.2 Magnesium 2.5 Total Bilirubin 0.7 AST 32 ALT 30 Alkaline Phosphatase 239 H Total Protein 6.6 Albumin 3.8 Globulin 2.8 Albumin/Globulin Ratio 1.4 Coccidioides IgG Ab Negative Quality Measures Quality Measures stroke Suspected type of Stroke: Non Acute Last known well (date): 01/29/24 Last known well (time): 07:42 Tenecteplase given: Reason(s) Tenecteplase not given: Outside the time window not given Rehab services: PT evaluation ordered VTE Prophylaxis: pharmaceutical Antithrombotic by day 2:: not indicated (describe) (As described from previous notes) Statin ordered: <75 y/o high intensity dose Anticoagulation ordered for A-fib or flutter (current or hx): not indicated Assessment & Plan Assessment Current Active Medications: Generic Name Dose Route Start Last Admin Trade Name Freq PRN Reason Stop Dose Admin Acetaminophen 650 mg 01/29/24 14:23 01/29/24 20:27 Acetaminophen 325 Mg Tablet PO 02/28/24 14:22 650 mg Q6H PRN Administration Pain 1-3 and/or Fever >100.1 Aspirin 81 mg 01/30/24 09:00 01/31/24 12:04 Aspirin Ec 81 Mg Tabec PO 02/29/24 08:59 81 mg QDAY SWATHI Administration Atorvastatin Calcium 40 mg 01/30/24 21:00 01/30/24 20:41 Atorvastatin Calcium 20 Mg Tablet PO 02/29/24 20:59 40 mg HS SWATHI Administration Carvedilol 12.5 mg 01/31/24 08:00 01/31/24 12:03 Carvedilol 12.5 Mg Tablet PO 03/01/24 07:59 12.5 mg BIDWM SWATHI Administration Clonidine 0.1 mg 01/31/24 09:00 01/31/24 12:01 Clonidine Hcl 0.1 Mg Tablet PO 03/01/24 08:59 0.1 mg BID SWATHI Administration Clopidogrel Bisulfate 75 mg 01/31/24 09:00 01/31/24 12:03 Clopidogrel Bisulfate 75 Mg Tablet PO 03/01/24 08:59 75 mg QDAY SWATHI Administration Dextrose 25 ml 01/29/24 14:23 01/30/24 05:51 Dextrose 50%-Water Inj 50 Ml Syringe IV 02/28/24 14:22 25 ml Q15MIN PRN Administration BG 50-70 responsive npo pt Dextrose 50 ml 01/29/24 14:23 Dextrose 50%-Water Inj 50 Ml Syringe IV 02/28/24 14:22 Q15MIN PRN BG <50 OR BG <70 & pt unresponsive Fluconazole 200 mg 01/29/24 15:20 01/30/24 08:16 Fluconazole 100 Mg Tablet PO 02/05/24 15:19 200 mg QDAY SWATHI Administration Furosemide 40 mg 01/30/24 21:00 01/31/24 12:03 Furosemide 40 Mg Tablet PO 02/29/24 20:59 40 mg BID SWATHI Administration Glucagon 1 mg 01/29/24 14:23 Glucagon Inj 1 Mg Vial IM Q15MIN PRN BG <70, and no IV access Heparin Sodium (Porcine) 5,000 unit 01/29/24 21:00 01/29/24 20:51 Heparin Sod Inj 5000 Unit/Ml Vial SC 02/12/24 20:59 5,000 unit Q12HR SWATHI Administration Insulin Glargine 45 unit 01/30/24 21:00 01/30/24 20:45 Insulin Glargine (Lantus) 5 Unit/0.05 Ml (Per 5 Units) SC 02/29/24 20:59 Not Given HS SWATHI Insulin Human Lispro 0 unit 01/30/24 01:43 01/31/24 12:19 Insulin Lispro (Admelog) 1 Unit/0.01 Ml Unit SC 02/28/24 20:59 10 unit ACHS SWATHI Administration Protocol Isosorbide Mononitrate 30 mg 01/31/24 09:00 01/31/24 12:03 Isosorbide Er Mononitrate 30 Mg Tabcr PO 03/01/24 08:59 30 mg QDAY SWATHI Administration Labetalol HCl 10 mg 01/29/24 14:57 Labetalol Inj 5 Mg/Ml Vial 20 Ml IVP 02/28/24 14:56 Q4HR PRN Systolic >220 Losartan Potassium 100 mg 01/31/24 07:40 01/31/24 12:02 Losartan Potassium 25 Mg Tablet PO 03/01/24 07:39 100 mg QDAY SWATHI Administration Metolazone 5 mg 01/30/24 14:15 01/31/24 12:02 Metolazone 2.5 Mg Tablet PO 02/29/24 14:14 5 mg QDAY SWATHI Administration Ondansetron HCl 4 mg 01/29/24 11:32 Ondansetron Inj 2 Mg/Ml Inj 2 Ml IV 02/28/24 11:31 Q4HR PRN NAUSEA OR VOMITING Sennosides 1 tab 01/29/24 14:23 Senna Tablet PO 02/28/24 14:22 QDAY PRN constipation Protocol Sevelamer Carbonate 2,400 mg 01/29/24 17:30 01/31/24 12:05 Sevelamer Carbonate 800 Mg Tablet PO 02/28/24 17:29 2,400 mg TIDWM SWATHI Administration Plan 58-year-old male with past medical history of coronary artery disease s/p CABG (May 05, 2021), CHF, ESRD on HD (M/W/F), hypertension, insulin-dependent diabetes (unsure whether type I or type II), hyperlipidemia presents with acute change in mentation and worsening headache will be admitted to the hospitalist team for stroke rule out versus metabolic encephalopathy; neurologist and carpet installation specialist have been consulted to follow patient during hospital stay. #Acute encephalopathy, resolved Initially thought to be possible CVA versus TIA versus metabolic encephalopathy; now likely metabolic/hypertensive urgency vs. demyelinating disease Patient presented with worsening headache in the back of his head along with weakness; did not lose consciousness per HPI CT head was negative CTA of head and neck showed incomplete filling of the distal P1 segment of the left posterior cerebral artery and neck arterial sclerosis Teleneurology was consulted and provided the recommendations MRI brain without contrast shows: Negative for any acute process, but showed multiple foci of increased signal in the white matter, demyelinating disease pattern versus microvascular white matter change U/S Carotid shows b/l carotid 0-10% stenosis Echo with possible PFO; will defer LINDA as patient's MRI is negative for acute process Speech eval passed Plan: EEG pending Neurology, Dr. Crystal consulted appreciate recommendations Head of bed greater than 30 degrees PT eval pending #Coccidiomycosis infection #Possible left lung mass Patient apparently was told that he has coccidiomycosis also a left lobe nodule was noted during his appointment with [facility] transplant center Cocci IgM negative Plan: Will repeat cocci IgM and IgG Holding fluconazole 200 mg as the patient is ESRD Patient will need to follow-up with his appointment on February 05 with [facility] transplant center #Pulmonary Arterial Hypertension Estimated RVSP 68mmHg. Moderate to severe PAH as seen on LINDA Likely Group 2 vs. Group 1 or 3 pulmonary hypertension Patient is a ESRD patient which can explain following; however, cannot rule out lung pathology as listed above Cardiology following, appreciate recommendations Plan: Patient could benefit from right heart catheterization vs. following up with transplant center at [facility] for workup Cardiology recommends outpatient right heart cath if the patient does not have a follow-up for PAH at [facility] Patient will need close follow-up/referral to financial planning assistant outpatient #ESRD on HD (M/W/F) Patient has been on dialysis for about 3 years now; March 2021 start date Patient states that usually they take about 2.5 L of ultrafiltration per session Of note, patient went to dialysis on Friday 01/26 as on the 01/25 session did not take off enough fluid On 01/28 (today) they took out 4.3 L ultrafiltration per patient Patient follows up with Dr. Nguyen, nephrology Patient also apparently follows up with [facility] transplant center; next appointment is on February 05 as stated above Plan: Consulted Dr. Nguyen, appreciate recommendations Dialysis completed today 01/30 Will continue sevelamer 800 mg 3 tablets 3 times daily Premeal #History of coronary artery disease s/p CABG #Hyperlipidemia #HFpEF (EF 60-65%), grade II diastolic dysfunction Patient with significant history of coronary artery disease, CABG on May 05, [address] Saldana in [place], cardiology Patient is on guideline based medical therapy for congestive heart failure; losartan, carvedilol, isosorbide mononitrate Patient also takes atorvastatin 40 mg daily LINDA with bubble shows: Positive bubble study with bubbles appearing after 5th cycle indicating possibe pulmonary AV shunt. Normal LV size and function. Mild LVH. Grade II diastolic dysfunction. Estimated EF 60-65% Moderate Rv and RA dilatation. Estimated RVSP 68mmHg. Moderate to severe PAH. Mild LA dilatation. Mild MR, TR, PI. Trace AI. IVC dilated. ASCVD risk score 12.2% of cardiovascular event in next 10 years Plan: Discontinued Plaavix due to patient having appointment with [facility] for lung biopsy on February 06, 2024 Will continue aspirin Continue 40mg atorvastatin Continue losartan, coreg and iso moninitrate #Hypertension Patient has known history of hypertension Takes the medications highlighted above along with clonidine 0.1 twice daily, amlodipine 10 mg daily, Lasix 40 mg twice daily Plan: Restarted patient on home Lasix 40mg po bid and metolazone 5mg po qday Continue clonidine, coreg, isosorbide nitrate and losartan on 01/30 Will continue to hold amlodipine for now #Insulin-dependent diabetes A1c 10.0 Patient was apparently diagnosed in his 30s and was started on insulin right away Unsure if this is type I versus type 2 diabetes mellitus [facility]: Lantus 45 Sliding scale insulin #FOBT positive Patient is not exhibited in any signs of acute blood loss Denies hematuria, hematochezia, melena or hematemesis Plan: Follow-up outpatient with PCP for further workup; GI referral - possible colonoscopy need Hospital Management: Lines: PIV Bowel: Senna as needed Diet: Renal GI prophylaxis: Not required DVT prophylaxis: Restarted heparin subcutaneous Dispo: EEG pending, monitoring hypertension medications Code: DNR Patient seen and examined with attending Dr. Driver and senior resident Dr. Marah Coppola, PGY-1 Attending Provider Attestation/Addendum I have discussed and was present for the essential components of the history, physical examination, diagnosis, and treatment plan with the resident. I agree with the patient's care as documented by the resident and amended herein by me. Tristian Driver DO. Patient seen and evaluated this AM. No acute events overnight, vital signs stable, patient afebrile. SBP in the 150s. Hemodialysis today, EEG pending read, no heart right heart cath this visit, likely discharge after EEG read pending specialist recommendations. Coccidiomycosis serologies negative Although this document has been carefully reviewed, there may still be some phonetic and other typographical errors. These errors are purely grammatical due to imperfections in the software program and should not be construed in any way to compromise the substance of the patient's medical care during this visit.
[2024-01-31] MEDS: SENNA TABLET 1 TAB PO (16:59)
[2024-01-31] MEDS: ATORVASTATIN CALCIUM 20 MG TABLET 40 MG PO (21:22)
[2024-01-31] MEDS: HEPARIN SOD INJ 5000 UNIT/ML VIAL SC (21:22)
--- NOTE | 2024-01-31 23:40 | PD.VPROG1 ---
Telemedicine visit statement This visit was conducted with the use of phone was obtained on 01/31/24 at 2340. Documentation for date of: 01/31/24 Subjective Subjective Interval history: Patient is in telemetry today. No new symptoms reported tolerating oral diet well. Moves all 4 extremities. Denies any headache or dizziness Virtual exam Vital Signs Temp Pulse Resp BP Pulse Ox O2 Del Method O2 Flow Rate 98.0 F 66 15 153/79 H 97 Room Air 2 01/31/24 19:50 01/31/24 21:22 01/31/24 19:50 01/31/24 21:22 01/31/24 19:50 01/31/24 19:50 01/31/24 16:00 Objective Labs 02/01/24 08:35 02/01/24 04:30 Labs: Laboratory Results - last 24 hr 01/29/24 01/31/24 15:18 05:44 WBC 9.0 RBC 2.74 L Hgb 8.8 L Hct 26.8 L MCV 98 MCH 32.1 MCHC 32.8 RDW Std Deviation 63.2 H Plt Count 103 L Neut % (Auto) 75 Lymph % (Auto) 9 L [place] % (Auto) 9 Eos % (Auto) 8 Baso % (Auto) 0 Neut # (Auto) 6.7 Lymph # (Auto) 0.8 L [place] # (Auto) 0.8 Eos # (Auto) 0.7 H Baso # (Auto) 0.0 Immature Gran # (Auto) 0.02 H Absolute Nucleated RBC 0.00 Immature Gran % 0 Nucleated RBC % 0 Sodium 136 Potassium 4.4 D Chloride 98 Carbon Dioxide 29.7 Anion Gap 8 BUN 49 H Creatinine 6.4 H* D Estim Creat Clear Calc 9.5 L eGFR 10 L* BUN/Creatinine Ratio 8 L Glucose 63 L Calculated Osmolality 282 Calcium 9.0 Corrected Calcium 9.2 Magnesium 2.5 Total Bilirubin 0.7 AST 32 ALT 30 Alkaline Phosphatase 239 H Total Protein 6.6 Albumin 3.8 Globulin 2.8 Albumin/Globulin Ratio 1.4 Coccidioides IgG Ab Negative Assessment & Plan Assessment 1) Altered mental status: Resolved CT head: Negative CT angiogram of the head and neck: Neck arterial stenoses Incomplete filling of the distal P1 segment left posterior cerebral artery, clinical correlation advised Carotid Doppler: Negative for stenosis on both sides Continue with aspirin 81 mg, blood pressure control and better diabetes control. Cocci serology: Pending MRI brain showed chronic white matter changes consistent with small vessel disease rather than demyelination. EEG: Showed normal study, no epileptiform discharges (2) ESRD (end stage renal disease): On maintenance hemodialysis, On the waiting list for renal transplant (3) Headache: Improving, follow-up with the cocci serology (4) Anemia: Secondary to chronic kidney disease (5) Diabetes mellitus with hyperglycemia: Needs better control
[2024-02-01] VITALS (11 sets, daily range): BP systolic 129–158; BP diastolic 69–80; PULSE 57–68; RESP 15–92; TEMP 36.1–36.8; O2SAT 94–98
[2024-02-01 05:50] LABS: Basophils % (Auto) 1 % (0-2.5); Eosinophils # (Auto) 0.5 Thou/mm3 (0.0-0.5); Eosinophils % (Auto) 7 % (0-10); Hematocrit 24.2 % (41.0-53.0); Immature Granulocytes % (Auto) 0 % (0-0); Immature Granulocytes Auto 0.02 Thou/mm3 (0.00-0.00); Lymphocytes # (Auto) 0.9 Thou/mm3 (1.0-4.8); Lymphocytes % (Auto) 12 % (10-50); Mean Corpuscular HGB Conc 31.4 g/dl (31.0-37.0); Mean Corpuscular Hemoglobin 31.7 pg (25.0-35.0); Mean Corpuscular Volume 101 fL (80-100); Monocytes # (Auto) 0.8 Thou/mm3 (0.0-0.8); Monocytes % (Auto) 11 % (0-12); Neutrophils % (Auto) 69 % (37-80); Nucleated Red Blood Cell % 0 /100 WBC (0); Platelet Count 92 Thou/mm3 (140-440); RDW Standard Deviation 64.3 fL (35.1-43.9); White Blood Count 7.1 Thou/mm3 (3.8-10.6)
[2024-02-01 05:53] LABS: Hemoglobin 7.6 g/dL (13.5-16.0)
[2024-02-01 06:47] LABS: Alanine Aminotransferase 26 U/L (10-49); Albumin, Serum 3.4 gm/dL (3.5-5.0); Albumin/Globulin Ratio 1.3 (1.2-2.2); Alkaline Phosphatase 227 U/L (46-116); Anion Gap 7 (7-16); Aspartate Amino Transferase 32 U/L (0-34); BUN/Creatinine Ratio 7 Ratio (12-20); Bilirubin,Total 0.6 mg/dL (0.3-1.2); Blood Urea Nitrogen 38 mg/dL (9-23); Calcium 8.4 mg/dL (8.3-10.6); Calcium (Corrected) 8.9 mg/dL (8.5-10.1); Carbon Dioxide 26.8 mMol/L (20.0-31.0); Chloride 97 mMol/L (98-107); Creatinine (Component) 5.4 mg/dL (0.6-1.3); Estimated Creatinine Clearance 11.3 mL/min (>60); Globulin 2.6 gm/dL (2.3-3.5); Glucose 266 mg/dL (74-106); Osmolality,Calculated 280 (275-295); Potassium 4.7 mMol/L (3.4-5.1); Sodium 131 mMol/L (136-145); eGFR 12 See Note
--- NOTE | 2024-02-01 08:08 | PC.NURSE ---
Dr. Beverly notified Hg dropped from 8.8 to 7.6 and plt 92, ordered to still give q12 heparin sc.
--- NOTE | 2024-02-01 08:14 | ESPR_ITS ---
Documentation for date of: 02/01/24 Subjective Subjective Interval history: Patient was seen and examined at bedside this AM. No acute exents overnight. Currently off of Supplemental O2 Patient tolerating diet, adequate urine output and mentation is at baseline. Patient has no complaints. Denies any headaches, chest pain, palpitations or SOB Patient had dialysis yesteday with 3L Ultrafiltration Potassium is K 4.7 and Mg 2.7. Please maintain K>3.5 as patient is ESRD and Mg >2 at all times to avoid any arryhtmias MRI brain showed chronic white matter changes consistent with small vessel disease rather than demyelination. No acute infarcts noted. In light of no infarct seen on MRI no need for LINDA at this point. Will need a right heart cath eventually for further evaluation of the etiology of the PAH after his stroke workup is completed and also can be done as outpatient after adequate fluid removal. Patient also given the option [place] [facility] [place] where he is having his lung biopsy performed in the next few weeks Exam Vital Signs Temp Pulse Resp BP Pulse Ox O2 Del Method O2 Flow Rate 98.2 F 57 L 19 139/70 H 98 Room Air 2 02/01/24 04:00 02/01/24 04:00 02/01/24 04:00 02/01/24 04:00 02/01/24 04:00 02/01/24 04:00 01/31/24 16:00 Narrative Exam Constitutional Alert, oriented x 3 and comfortable. Young male on O2 via NC HEENT Vision grossly intact. Patent nares. Trachea midline Respiratory Midline sternotomy scar noted and Lungs clear to auscultation B/L Cardiovascular S1 and S2 audible, RRR. 3/6 systolic murmur at apex with radiation to axilla, no carotid bruit. JVD not assessed Abdominal Tense, distended - less than before and non tender to palpation in all quadrants. Umbilicus everted, BS + Genitourinary No bladder tenderness, no flank pain. Normal to palpation Musculoskeletal Extremities tone within normal limits. No LE edema. Neurological CN II - XII grossly intact. Extremity motor and sensation grossly intact. Skin Warm, dry and intact. Left brachiocephalic fistula, thrill palpated Psychiatric Patient has good affect, is cooperative Objective Labs 02/01/24 08:35 02/01/24 04:30 Labs: Laboratory Results - last 24 hr 01/29/24 01/31/24 02/01/24 15:18 05:44 04:30 WBC RBC Hgb Hct MCV MCH MCHC RDW Std Deviation Plt Count Neut % (Auto) Lymph % (Auto) Bartholomew % (Auto) Eos % (Auto) Baso % (Auto) Neut # (Auto) Lymph # (Auto) Bartholomew # (Auto) Eos # (Auto) Baso # (Auto) Immature Gran # (Auto) Absolute Nucleated RBC Immature Gran % Nucleated RBC % Sodium 131 L Potassium 4.7 Chloride 97 L Carbon Dioxide 26.8 Anion Gap 7 BUN 38 H Creatinine 5.4 H* D Estim Creat Clear Calc 11.3 L eGFR 12 L* BUN/Creatinine Ratio 7 L Glucose 266 H D Calculated Osmolality 280 Calcium 8.4 Corrected Calcium 8.9 Magnesium 2.5 Total Bilirubin 0.6 AST 32 ALT 26 Alkaline Phosphatase 227 H Total Protein 6.0 Albumin 3.4 L Globulin 2.6 Albumin/Globulin Ratio 1.3 Coccidioides IgG Ab Negative 02/01/24 05:00 WBC 7.1 RBC 2.40 L Hgb 7.6 L Hct 24.2 L MCV 101 H MCH 31.7 MCHC 31.4 RDW Std Deviation 64.3 H Plt Count 92 L Neut % (Auto) 69 Lymph % (Auto) 12 Bartholomew % (Auto) 11 Eos % (Auto) 7 Baso % (Auto) 1 Neut # (Auto) 5.0 Lymph # (Auto) 0.9 L Bartholomew # (Auto) 0.8 Eos # (Auto) 0.5 Baso # (Auto) 0.0 Immature Gran # (Auto) 0.02 H Absolute Nucleated RBC 0.00 Immature Gran % 0 Nucleated RBC % 0 Sodium Potassium Chloride Carbon Dioxide Anion Gap BUN Creatinine Estim Creat Clear Calc eGFR BUN/Creatinine Ratio Glucose Calculated Osmolality Calcium Corrected Calcium Magnesium Total Bilirubin AST ALT Alkaline Phosphatase Total Protein Albumin Globulin Albumin/Globulin Ratio Coccidioides IgG Ab Quality Measures Quality Measures stroke Suspected type of Stroke: Non Acute Last known well (date): 01/29/24 Last known well (time): 07:42 Tenecteplase given: Reason(s) Tenecteplase not given: Outside the time window not given Rehab services: PT evaluation ordered VTE Prophylaxis: pharmaceutical Antithrombotic by day 2:: ordered Statin ordered: <75 y/o high intensity dose Anticoagulation ordered for A-fib or flutter (current or hx): not indicated Assessment & Plan Assessment Current Active Medications: Generic Name Dose Route Start Last Admin Trade Name Trav PRN Reason Stop Dose Admin Acetaminophen 650 mg 01/29/24 14:23 01/29/24 20:27 Acetaminophen 325 Mg Tablet PO 02/28/24 14:22 650 mg Q6H PRN Administration Pain 1-3 and/or Fever >100.1 Aspirin 81 mg 01/30/24 09:00 01/31/24 12:04 Aspirin Ec 81 Mg Tabec PO 02/29/24 08:59 81 mg QDAY SWATHI Administration Atorvastatin Calcium 40 mg 01/30/24 21:00 01/31/24 21:22 Atorvastatin Calcium 20 Mg Tablet PO 02/29/24 20:59 40 mg HS WSATHI Administration Carvedilol 12.5 mg 01/31/24 08:00 01/31/24 16:59 Carvedilol 12.5 Mg Tablet PO 03/01/24 07:59 12.5 mg BIDWM SWATHI Administration Clonidine 0.1 mg 01/31/24 09:00 01/31/24 21:22 Clonidine Hcl 0.1 Mg Tablet PO 03/01/24 08:59 0.1 mg BID SWATHI Administration Dextrose 25 ml 01/29/24 14:23 01/30/24 05:51 Dextrose 50%-Water Inj 50 Ml Syringe IV 02/28/24 14:22 25 ml Q15MIN PRN Administration BG 50-70 responsive npo pt Dextrose 50 ml 01/29/24 14:23 Dextrose 50%-Water Inj 50 Ml Syringe IV 02/28/24 14:22 Q15MIN PRN BG <50 OR BG <70 & pt unresponsive Fluconazole 200 mg 01/29/24 15:20 01/30/24 08:16 Fluconazole 100 Mg Tablet PO 02/05/24 15:19 200 mg QDAY SWATHI Administration Furosemide 40 mg 01/30/24 21:00 01/31/24 21:21 Furosemide 40 Mg Tablet PO 02/29/24 20:59 40 mg BID SWATHI Administration Glucagon 1 mg 01/29/24 14:23 Glucagon Inj 1 Mg Vial IM Q15MIN PRN BG <70, and no IV access Heparin Sodium (Porcine) 5,000 unit 01/29/24 21:00 01/31/24 21:22 Heparin Sod Inj 5000 Unit/Ml Vial SC 02/12/24 20:59 5,000 unit Q12HR SWATHI Administration Insulin Glargine 45 unit 01/30/24 21:00 01/31/24 21:20 Insulin Glargine (Lantus) 5 Unit/0.05 Ml (Per 5 Units) SC 02/29/24 20:59 Not Given HS SWATHI Insulin Human Lispro 0 unit 01/30/24 01:43 01/31/24 21:19 Insulin Lispro (Admelog) 1 Unit/0.01 Ml Unit SC 02/28/24 20:59 Not Given ACHS SWATHI Protocol Isosorbide Mononitrate 30 mg 01/31/24 09:00 01/31/24 12:03 Isosorbide Er Mononitrate 30 Mg Tabcr PO 03/01/24 08:59 30 mg QDAY SWATHI Administration Labetalol HCl 10 mg 01/29/24 14:57 Labetalol Inj 5 Mg/Ml Vial 20 Ml IVP 02/28/24 14:56 Q4HR PRN Systolic >220 Losartan Potassium 100 mg 01/31/24 07:40 01/31/24 12:02 Losartan Potassium 25 Mg Tablet PO 03/01/24 07:39 100 mg QDAY SWATHI Administration Metolazone 5 mg 01/30/24 14:15 01/31/24 12:02 Metolazone 2.5 Mg Tablet PO 02/29/24 14:14 5 mg QDAY SWATHI Administration Ondansetron HCl 4 mg 01/29/24 11:32 Ondansetron Inj 2 Mg/Ml Inj 2 Ml IV 02/28/24 11:31 Q4HR PRN NAUSEA OR VOMITING Sennosides 1 tab 01/29/24 14:23 01/31/24 16:59 Senna Tablet PO 02/28/24 14:22 1 tab QDAY PRN Administration constipation Protocol Sevelamer Carbonate 2,400 mg 01/29/24 17:30 01/31/24 16:58 Sevelamer Carbonate 800 Mg Tablet PO 02/28/24 17:29 2,400 mg TIDWM SWATHI Administration Plan 58-year-old male with past medical history of coronary artery disease s/p 4 vessel CABG (May 05, 2021 in [place]), chronic diastolic CHF [60-65] ESRD on HD (M/W/F), essential hypertension, insulin-dependent diabetes (unsure whether type I or type II), hyperlipidemia presents to the ED on 01/28 with acute change in mentation and worsening headache.Patient was admitted for stroke rule out versus metabolic encephalopathy. Patient was admitted for stroke rule out versus metabolic encephalopathy. Cardiology was consulted for moderate to severe PAH along with positive bubble study. 1. Chronic diastolic heart failure with preserved ejection fraction [60-65%] 2. Possible AV shunt 3. Mitral regurgitation 4. Essential hypertension On admission patient reported intermittent shortness of breath associated with a 3 pillow orthopnea and PND. Patient also had questionable presyncope prior to admission. Patient's home medication metolazone 5 Mg p.o. daily, losartan 100 Mg p.o. daily, isosorbide mononitrate 30 Mg p.o. daily, furosemide 40 Mg p.o. twice daily and carvedilol 12.5 Mg p.o. twice daily as part of GDMT. No recent BNP. Troponin negative on admission. Transthoracic echocardiogram completed on 01/28 findings include: Positive bubble study with bubbles appearing after 5th cycle indicating possibe pulmonary AV shunt. Cannot rule out a PFO based on the study and recommend LINDA if high index of clinical suspicion. Normal LV size and function. Mild LVH. Grade II diastolic dysfunction. Estimated EF 60-65% Moderate Rv and RA dilatation. Estimated RVSP 68mmHg. Moderate to severe PAH. Mild LA dilatation. Mild MR, TR, PI. Trace AI. IVC dilated. Reviewed echocardiogram and as noted above the patient does have moderate to severe PAH with an RVSP of around 70 mmHg with moderate RV and RA dilatation. Unclear etiology for the moderate to severe PAH. Patient will need further workup of the PAH but patient [place] [facility] [place] and recently found to have some lung lesions regarding a cocci or fungal infection of the lungs along with pulmonary nodule for which she has a biopsy scheduled on February 06, 2024. Plan: ? Strict input output charting ? Fluid restriction of 1500 cc/day ? Daily weight ? 2G sodium restricted diet ? Continue home diuretic furosemide and metolazone once out of window for permissive hypertension. ? Recommend to also continue losartan and Coreg as part of GDMT and isosorbide mononitrate and losartan for blood pressure control - Will need a right heart cath eventually for further evaluation of the etiology of the PAH after his stroke workup is completed and also can be done as outpatient after adequate fluid removal. Patient also given the option to [place] [facility] [place] where he is having his lung biopsy performed in the next few weeks. - Follow up either in Cardiology clinic within 1 week of discharge [place] [facility] [place]. Pulmonary arterial hypertension?etiology to be determined Etiology to be determined group I versus group II. Patient has history of CHF with CAB[place] 2 [place] ago [place] [facility] [place] group 2. RVSP 68 mmHg. Moderate to severe PAH with moderate RV and RA dilation as seen on TTE completed on 01/28. Will need a right heart cath eventually for further evaluation of the etiology of the PAH after his stroke workup is completed and also can be done as outpatient after adequate fluid removal. Patient also given the option to [place] [facility] [place] where he is having his lung biopsy performed in the next few weeks. 6. Possible pulmonary AV shunt On transthoracic echocardiogram there was a positive bubble study with bubbles appearing after the fifth cycle indicating possible pulmonary AV shunt. Patient has history of GERD in the past, but denies any recent symptoms of acid reflux, heartburn, chest pain Regarding the positive bubble study reviewed the transthoracic echo and patient had a positive bubble study only after the fifth cycle indicating possible small pulmonary AV shunt. Will mediate LINDA for further characterization and to rule out a PFO. Plan: - MRI was negative for any acute infarcts, no need to pursue LINDA at this time. 7. CAD s/p four-vessel CABG in [place] [2021] 8. Hyperlipidemia Recommend to continue aspirin and clopidogrel to prevent thrombosis of grafts Recommend to continue high intensity statin 9. ESRD on HD [M/W/F] Patient appears to be volume overloaded with dilated IVC and patient appears to be volume overloaded with IVC dilated too. Patient has a history of end-stage renal disease on hemodialysis and continue dialysis for fluid management and would recommend additional fluid removal during each session of dialysis Continue management as per primary team and Nephrolgy 10. IDDM No recent HbA1c on file. Continue management as per primary team 11. 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 Scheduled for biopsy on February 06, 2024. 12. Acute encephalopathy - resolved 13. CVA versus TIA - ruled out Patient presents with worsening headache in the back of his head along with weakness; did not lose consciousness per HPI The symptoms began before dialysis session at 4 AM and progressively worsened Per patient, he was able to ambulate out of his housing unit to get to his ex- 's house and notify them that he was feeling weak and had worsening headache In the ED, NIHSS score was 20 [address] head was negative CTA of head and neck showed incomplete filling of the distal P1 segment of the left posterior cerebral artery and neck arterial sclerosis MRI brain showed chronic white matter changes consistent with small vessel disease rather than demyelination. No acute infarcts noted Continue management as per neurology and primary team. Continue rest of management as per primary team. We are grateful to be able to participate in Mr. Brown' care. Thank you for the consult Plan of care discussed with attending Rn Recruitment, Dr Ross Mathias MD PGY 1 Attending Provider Attestation/Addendum I reviewed the resident Dr. Mathias consultation progress note and agree with the resident findings and plan in the note above and have also edited the documentation to reflect my findings and plan. Heath Hawkins M.D. Interventional Cardiology
[2024-02-01] MEDS: INSULIN LISPRO (AdmeLOG) 1 UNIT/0.01 ML UNIT SC ×2 (08:30→13:06)
[2024-02-01] MEDS: ASPIRIN EC 81 MG TABEC PO (08:31)
[2024-02-01] MEDS: SEVELAMER CARBONATE 800 MG TABLET 2400 MG PO ×2 (08:31→12:04)
[2024-02-01] MEDS: Furosemide 40 MG TABLET PO (08:31)
[2024-02-01] MEDS: metOLazone 2.5 MG TABLET 5 MG PO (08:32)
[2024-02-01] MEDS: LOSARTAN POTASSIUM 25 MG TABLET 100 MG PO (08:33)
[2024-02-01] MEDS: cloNIDine HCL 0.1 MG TABLET PO (08:33)
[2024-02-01] MEDS: ISOSORBIDE ER MONONITRATE 30 MG TABCR PO (08:33)
[2024-02-01 09:15] LABS: Hemoglobin 9.2 g/dL (13.5-16.0)
[2024-02-01 09:34] LABS: Magnesium 2.7 mg/dL (1.6-2.6)
[2024-02-01] MEDS: INSULIN HUM REGULAR 1 UNIT/0.01 ML (PER UNIT) 5 UNIT SC (12:03)
--- NOTE | 2024-02-01 14:10 | ESDS_ITS ---
<Statement entered by Gin Crystal MD - 02/01/24 16:51> I discussed with and supervised the internet e commerce specialist physician who took care of this patient. I personally saw and examined the patient and discussed the assessment and plan with the entire medicine team, including my attending Dr. Driver, I agree with most of the assessment and plan as documented below Gin Crystal M.D. PGY-2 Planned Discharge Date 02/01/24 DS: Providers Provider Date of admission: 01/29/24 14:23 Primary care physician: Sanchez Hughes MD Admitting Provider: Joshua Benitez MD Attending Provider on Admission: Ellis Driver DO Consults: 01/29/24 11:32 Consult to Neurology / Tele-Neurology Routine Comment: Consulting Provider: [facility] 01/29/24 14:30 Consult to Neurology / Tele-Neurology Stat Comment: Stroke r/o Consulting Provider: Akhil Crystal Referral Physical Therapy Stat Comment: Physician Instructions: Referral Registered Dietitian Routine Comment: Referral Speech Therapy Stat Comment: 01/29/24 14:31 Consult to Nephrology Routine Comment: ESRD on HD (M/W/F) Consulting Provider: Giovani Nguyen 01/29/24 17:45 Consult to Cardiology Routine Comment: Consulting Provider: Heath Hawkins Attending Provider on DC: Gunnar Coppola MD Discharging Provider: Gunnar Coppola MD DS: Diagnosis Problem List Completed Was Problem List Reviewed/Reconciled?: Yes Hospital Course Hospital Course Hospital course: 58-year-old male past medical history of CAD status post CABG, CHF, ESRD on HD (M/W/), hypertension, insulin-dependent diabetes, hyperlipidemia presented to the ED on 01/28 with acute change in mentation and headache; stroke alert was initiated for NIHSS score of 20. CT of the head was negative for any acute process, CTA of head and neck showed incomplete filling of the distal P1 segment of the left posterior cerebellar artery. Patient was admitted for stroke rule out versus metabolic encephalopathy in the brain MRI was ordered per teleneurology recommendations. During hospitalization, patient also received dialysis as normally scheduled with adult educator Dr. Nguyen. MRI of the brain showed chronic white matter changes but no acute signs of stroke; neurology (Dr. Crystal) was consulted for recommendations. An EEG was ordered which was negative for any abnormalities. Cardiology, Dr. Hawkins, was also consulted since the patient has extensive cardiac history with CAD and CABG; TTE w/bubble showed grade 2 diastolic dysfunction with no signs of PFO and an estimated EF of 60-65%; however, there was moderate to severe PAH. Cocci serologies were also ordered which were negative; moreover, patient did state that he was recently told that he has cocci infection. Fluconazole was given one-time; however, upon negative serology was discontinued. Patient has [place] [facility] [place] assessment and biopsy of a left lung nodule. Patient will be discharged back to his baseline with the following instructions. Please follow-up with your PCP within 1 week Please go to your appointment with [facility] on February 06, 2024 Continue to take all your other medications as prescribed Continue dialysis sessions Monday/Monday/Monday and follow-up with your adult educator Dr. Nguyen Ask your PCP or [facility] [place] diagnosis of Pulmonary Arterial Hypertension; you would benefit from a right heart catherization with a flag football coach Ask your PCP to refer you to [facility] as you had a positive FOBT test in the hospital If you develop new or worsening chest pain, shortness of breath, dizziness or headaches please come back to the ED immediately Hospital Diagnosis: #Acute encephalopathy, resolved #Possible left lung mass #Pulmonary Arterial Hypertension #ESRD on HD (M/W/F) #History of coronary artery disease s/p CABG #Hyperlipidemia #HFpEF (EF 60-65%), grade II diastolic dysfunction #Hypertension #Insulin-dependent diabetes #FOBT positive Gunnar Coppola, PGY-1 Status at Discharge Overall status at discharge: patient is progressing back to baseline Time Spent with Patient Time attestation: Total time spent providing and/or coordinating discharge services: 45 minutes Time spent: Greater than 30 minutes Exam Vital Signs Temp Pulse Resp BP Pulse Ox O2 Del Method O2 Flow Rate 97.1 F 61 18 150/71 H 96 Room Air 2 02/01/24 12:00 02/01/24 12:00 02/01/24 12:00 02/01/24 12:00 02/01/24 12:00 02/01/24 12:00 01/31/24 16:00 Narrative Exam Physical Exam: GENERAL: Awake, answering questions appropriately, appears stated age HEENT: NC/AT. Moist mucosa. PERRLA. Extraocular movements intact but slow CARDIO: Heart RRR, no obvious murmurs, no JVD. PULM: No coughing or visible SOB. Lungs CTA B/L. GI: Abdomen soft, NT/ND, +BS. SKIN/MSK/EXT: Left brachiocephalic AV fistula patent. No wounds/discoloration/rashes/edema/amputations. +Pedal pulses present B/L. NEURO: Oriented x3, cranial nerves II to XII intact, muscle strength 4 out of 5 bilateral upper and lower extremities, crutching contractor strength 4 out of 5, pronator drift negative, completed [id number], no focal neurologic deficit Discharge Plan Plan Patient Disposition: HOME (Self Care) Care Plan Goals: Follow up with Dr. Mascorro, Neurologist, within 1-2 weeks of discharge. Prescriptions/Referrals Prescriptions/Med Rec: New sevelamer carbonate 800 mg Tablet 2,400 mg PO TIDWM 30 Days Qty: 270 0RF Continued furosemide 40 mg Tablet 40 mg PO BID aspirin [Kendrick Low Dose Aspirin] 81 mg Tablet,Delayed Release (Dr/Ec) 81 mg PO QDAY carvedilol [Coreg] 12.5 mg Tablet 12.5 mg PO BID amlodipine 5 mg Tablet 10 mg PO QDAY metolazone 2.5 mg tablet 5 mg PO QDAY atorvastatin 40 mg tablet 40 mg PO HS Humulin R Regular U-100 Insuln 100 unit/mL Solution See Rx Instructions .ROUTE .COMPLEX Rx Instructions: sliding scale twice a day per patient (breakfast and lunch) clonidine HCl 0.1 mg tablet 0.1 mg PO BID Patient Comments: TAKE 1 TABLET BY MOUTH TWICE DAILY isosorbide mononitrate 30 mg tablet extended release 24 hr 30 mg PO QDAY Patient Comments: TAKE 1 TABLET BY MOUTH EVERY DAY IN THE MORNING Emmanuelle-Florian 0.8 mg tablet 1 tab PO QDAY Patient Comments: TAKE 1 TABLET BY MOUTH EVERY DAY losartan 100 mg tablet 100 mg PO QDAY Patient Comments: TAKE 1 TABLET BY MOUTH EVERY DAY Levemir U-100 Insulin 100 unit/mL solution 45 unit SUBCUT HS Patient Comments: INJECT 45 UNITS SUBCUTANEOUSLY ONCE A DAY FOR DIABETES Referrals: Sanchez Hughes MD [Primary Care Provider] - Patient/Caregiver Discharge Instructions Other Discharge Activity Instructions:: Please follow-up with your PCP within 1 week Please go to your appointment with [facility] on February 06, 2024 Continue to take all your other medications as prescribed Continue dialysis sessions Monday/Monday/Monday and follow-up with your adult educator Dr. Nguyen Ask your PCP or [facility] [place] diagnosis of Pulmonary Arterial Hypertension; you would benefit from a right heart catherization with a flag football coach Ask your PCP to refer you to [facility] as you had a positive FOBT test in the hospital If you develop new or worsening chest pain, shortness of breath, dizziness or headaches please come back to the ED immediately Education Materials: Hypoglycemia (Low Blood Sugar), How to Check Your Blood Sugar, Symptoms of Stroke Print Language: Guinean Stand Alone Forms: Sara Award Info., Patient Portal Info Letter Discharge Order Discharge Orders: Discharge (Routine); Ordered 02/01/24 Ordered By: Gunnar Coppola Quality Discharge Quality Measures VTE prophylaxis MD Attestestation MD Attestation I have discussed and was present for the essential components of the discharge history, physical examination, diagnosis, and discharge treatment plan with the resident. I agree with the patient's discharge care as documented by the resident and amended herein by me. Tristian Driver DO. The patient understood all discharge instructions, all questions were answered satisfactorily. The patient was instructed to return to the Emergency Department is symptoms worsened or persisted. Patient was stable, afebrile, tolerating p.o. intake and ambulatory at time of discharge. Patient will need close follow-up with PCP for blood glucose control and any adjustment to hypertensive medications that may need to occur. Although this document has been carefully reviewed, there may still be some phonetic and other typographical errors. These errors are purely grammatical due to imperfections in the software program and should not be construed in any way to compromise the substance of the patient's medical care during this visit.
[2024-02-01 14:23] LABS: Cocci Serology, IgM Negative (Negative)
--- NOTE | 2024-02-01 15:40 | PC.NURSE ---
Patient alert and oriented x4, verbalized understanding of all follow up appointments, CHF sheet and stroke packet given to patient. S/S of CHF and stroke went over and patient verbalized understanding of education. Patient has new medication already at home and understands how to take new medication.
--- NOTE | 2024-02-01 23:26 | ESPR_ITS ---
Documentation for date of: 02/01/24 Subjective Subjective Interval history: Patient is in telemetry. No new symptoms reported. Exam - Neurology Vital Signs Temp Pulse Resp BP Pulse Ox O2 Del Method O2 Flow Rate 97.8 F 63 19 158/78 H 98 Room Air 2 02/01/24 16:00 02/01/24 16:00 02/01/24 15:30 02/01/24 16:00 02/01/24 16:00 02/01/24 15:30 01/31/24 16:00 Narrative Exam GENERAL APPEARANCE: Well developed, well-nourished in no acute distress. HEENT: Normocephalic, atraumatic, extraocular movements intact. Pupils: Equal reacting to light and accommodation NECK: Supple, no JVD or bruits. CARDIOVASULAR: Heart: S1, S2 heard, regular without S3-S4 or murmur no rubs or gallops. LUNGS/CHEST: Clear to auscultation bilaterally. No rails, rhonchi, or wheezing. Normal inspection. ABDOMEN: Soft, nontender, with normal bowel sounds. No pulsatile masses. No rebound, rigidity, or guarding. Normal inspection and palpation. EXTREMITIES: Normal inspection and palpation. No edema, clubbing or cyanosis. SKIN: Warm and dry without rashes. Normal inspection. MUSCULOSKELETAL: No cervical, thoracic, lumbar or midline bony tenderness. Normal inspection. NEURO: Alert, awake and oriented x3. Cranial nerves: II through XII grossly intact. Speech and language: Normal with no dysarthria or dysphasia. Motor system: Tone and bulk: Normal: Strength: 5 out of 5 in all 4 extremities; No pronator drift noted. Deep tendon reflexes: 2+ bilaterally symmetrical. Plantar reflex: Downgoing bilaterally. Sensory system: Intact to all modalities of sensation bilaterally. Coordination: Intact to uewqgh-[id number]-iakvt and hvsa-jhgs-oobf test bilaterally. No ataxia, no dysmetria, or dysdiadochokinesia noted. No intention tremors noted. Gait: Not tested. No signs of meningeal irritation noted. PSYCHIATRIC: Normal mood and affect. Objective Labs 02/01/24 08:35 02/01/24 04:30 Labs: Laboratory Results - last 24 hr 01/31/24 02/01/24 02/01/24 15:41 04:30 05:00 WBC 7.1 RBC 2.40 L Hgb 7.6 L Hct 24.2 L MCV 101 H MCH 31.7 MCHC 31.4 RDW Std Deviation 64.3 H Plt Count 92 L Neut % (Auto) 69 Lymph % (Auto) 12 Crenshaw % (Auto) 11 Eos % (Auto) 7 Baso % (Auto) 1 Neut # (Auto) 5.0 Lymph # (Auto) 0.9 L Crenshaw # (Auto) 0.8 Eos # (Auto) 0.5 Baso # (Auto) 0.0 Immature Gran # (Auto) 0.02 H Absolute Nucleated RBC 0.00 Immature Gran % 0 Nucleated RBC % 0 Sodium 131 L Potassium 4.7 Chloride 97 L Carbon Dioxide 26.8 Anion Gap 7 BUN 38 H Creatinine 5.4 H* D Estim Creat Clear Calc 11.3 L eGFR 12 L* BUN/Creatinine Ratio 7 L Glucose 266 H D Calculated Osmolality 280 Calcium 8.4 Corrected Calcium 8.9 Magnesium Total Bilirubin 0.6 AST 32 ALT 26 Alkaline Phosphatase 227 H Total Protein 6.0 Albumin 3.4 L Globulin 2.6 Albumin/Globulin Ratio 1.3 Coccidioides IgM Ab Negative 02/01/24 08:35 WBC RBC Hgb 9.2 L D Hct 28.0 L MCV MCH MCHC RDW Std Deviation Plt Count Neut % (Auto) Lymph % (Auto) Crenshaw % (Auto) Eos % (Auto) Baso % (Auto) Neut # (Auto) Lymph # (Auto) Crenshaw # (Auto) Eos # (Auto) Baso # (Auto) Immature Gran # (Auto) Absolute Nucleated RBC Immature Gran % Nucleated RBC % Sodium Potassium Chloride Carbon Dioxide Anion Gap BUN Creatinine Estim Creat Clear Calc eGFR BUN/Creatinine Ratio Glucose Calculated Osmolality Calcium Corrected Calcium Magnesium 2.7 H Total Bilirubin AST ALT Alkaline Phosphatase Total Protein Albumin Globulin Albumin/Globulin Ratio Coccidioides IgM Ab Assessment & Plan Assessment and plan (1) Altered mental status: Status: Resolved Assessment and plan: CT head: Negative CT angiogram of the head and neck: Neck arterial stenoses Incomplete filling of the distal P1 segment left posterior cerebral artery, clinical correlation advised Carotid Doppler: Negative for stenosis on both sides Continue with aspirin 81 mg, blood pressure control and better diabetes control. Cocci serology: Pending MRI brain showed chronic white matter changes consistent with small vessel disease rather than demyelination (2) ESRD (end stage renal disease): Status: Chronic Assessment and plan: On maintenance hemodialysis, On the waiting list for renal transplant (3) Headache: Status: Acute Assessment and plan: Improving (4) Anemia: Status: Chronic Assessment and plan: Secondary to chronic kidney disease (5) Diabetes mellitus with hyperglycemia: Status: Chronic Assessment and plan: Needs better control
--- NOTE | 2024-02-02 15:16 | PC.CC ---
Order for CGM faxed to [facility].
== END 2024-02-01 15:50 | disposition home or self-care (01) | DRG 70 ==
LOC: SERX 14:26 → SERHOLD 14:48 → S2NX 16:24
PROVIDERS: Registered Nurse General Practice; Admitting Provider Student in an Organized Health Care Education/Training Program; Emergency Provider Emergency Medicine; PCP Family Medicine; Visit Provider Student in an Organized Health Care Education/Training Program
DX: G93.40 Encephalopathy, unspecified (principal); N18.6 End stage renal disease; I50.32 Chronic diastolic (congestive) heart failure; I13.2 Hypertensive heart and chronic kidney disease with heart failure and with stage 5 chronic kidney disease, or end stage renal disease; D63.1 Anemia in chronic kidney disease; E11.22 Type 2 diabetes mellitus with diabetic chronic kidney disease; K21.9 Gastro-esophageal reflux disease without esophagitis; E11.65 Type 2 diabetes mellitus with hyperglycemia; I25.10 Atherosclerotic heart disease of native coronary artery without angina pectoris; I34.0 Nonrheumatic mitral (valve) insufficiency; R91.8 Other nonspecific abnormal finding of lung field; I27.21 Secondary pulmonary arterial hypertension; I25.2 Old myocardial infarction; E78.00 Pure hypercholesterolemia, unspecified; E11.42 Type 2 diabetes mellitus with diabetic polyneuropathy; E11.649 Type 2 diabetes mellitus with hypoglycemia without coma; R19.5 Other fecal abnormalities; Z66 Do not resuscitate; Z99.2 Dependence on renal dialysis; Z95.1 Presence of aortocoronary bypass graft; Z79.899 Other long term (current) drug therapy; Z79.4 Long term (current) use of insulin; Z79.82 Long term (current) use of aspirin
CPT/HCPCS: 36415; 70450; 70496; 70498; 70544; 80053; 80061; 80307; 80320; 81001; 82140; 83036; 83735; 84100; 84443; 84484; 84703; 85014; 85018; 85025; 85610; 85730; 86331; 86635; 87086; 93005; 93306; 93880; 95816; 97162; 99291; A4649; J1643; J1815; Q9967; A9270; G0480; J1644

== ENCOUNTER → 2024-09-27 | Outpatient (CLI) | payer MEDICARE, MEDICAID, SELFPAY ==
--- NOTE | 2024-09-27 09:23 | XR_ITS ---
Examination: PA lateral chest 2 views TECHNIQUE: Upright PA lateral chest 2 views Date and time: September 27, 2024 1006 hours Comparison February 25, 2022 INDICATIONS: Coughing beginning 6 days ago. FINDINGS: Mild heart failure Mild enlargement cardiac contour. CABG. Prominent vascular congestion with moderate right pleural effusion IMPRESSION: Mild heart failure
== END | disposition home or self-care (01) ==
PROVIDERS: PCP Physician Assistant; Referring Provider Physician Assistant; Visit Provider Physician Assistant
DX: I50.9 Heart failure, unspecified (principal)
CPT/HCPCS: 71046

== ENCOUNTER → 2024-12-24 | Outpatient (CLI) | payer MEDICARE, MEDICAID, SELFPAY ==
[2024-12-24 08:41] LABS: INR 1.1 (0.9-1.3); Partial Thromboplastin Time 32.3 Seconds (22.0-36.0); Prothrombin Time 12.0 Seconds (9.0-12.2)
== END | disposition home or self-care (01) ==
LOC: SLAB 07:34 → SIRX 08:19
PROVIDERS: Referring Provider Nurse Practitioner Family; Visit Provider Nurse Practitioner Family
DX: R18.8 Other ascites (principal)
CPT/HCPCS: 36415; 85610; 85730

== ENCOUNTER → 2025-01-02 | Outpatient (CLI) | payer MEDICARE, MEDICAID, SELFPAY ==
--- NOTE | 2025-01-02 08:45 | XR_ITS ---
Examination: Abdomen sonogram, Limited Date and time of exam: January 02, 2025, 0935 hours INDICATIONS: Cirrhosis increasing abdominal distention this week Technique: Real-time singer scale transabdominal sonographic images of the upper abdomen obtained. Findings: Minimal ascites IMPRESSION: Minimal ascites
== END | disposition home or self-care (01) ==
PROVIDERS: PCP Physician Assistant; Referring Provider Internal Medicine; Visit Provider Internal Medicine
DX: R18.8 Other ascites (principal)
CPT/HCPCS: 76705

== ENCOUNTER 2025-01-16 04:49 | Emergency (ER) | payer MEDICARE, MEDICAID, SELFPAY ==
[2025-01-16 04:52] VITALS: BMI 23.8
[2025-01-16 04:58] VITALS: BP 166/85; PULSE 65; RESP 18; TEMP 36.9; O2SAT 95
--- NOTE | 2025-01-16 05:10 | EKG_ITS ---
[facility] Test Date: 2025-01-16 Pat Name: DU OWENS Department: Room: - Gender: Male Hospital Administrator: : [id number] Requested By: Harrison Ball Order Number: [id number] Reading MD: Harrison Ball Measurements Intervals [place] Rate: 63 P: 92 ID: [id number] QRS: 226 QRSD: 98 T: 123 QT: 426 QTc: 437 Interpretive Statements SINUS RHYTHM INDETERMINATE AXIS INCOMPLETE RIGHT BUNDLE BRANCH BLOCK [90+ ms QRS DURATION, TERMINAL R IN V1/V2, 40+ ms S IN I/aVL/V4/V5/V6] POSSIBLE ANTERIOR MYOCARDIAL INFARCTION , PROBABLY OLD [30 ms Q WAVE IN V3/V4, OR R < 0.2 mV IN V4] Compared to ECG 01/29/2024 12:23:02 No significant changes /store/S0/[id number]/ecg/[id number].pdf
--- NOTE | 2025-01-16 05:11 | XR_ITS ---
EXAMINATION: PA chest single view TECHNIQUE: Upright PA chest single view Date and time: January 16, 2025, 0518 hours, comparison 07/28/2024 INDICATIONS:*Chest pain today FINDINGS: Mild to moderate heart failure. Mild to moderate enlargement cardiac contour. CABG. Prominent vascular congestion including central vascular engorgement. Perihilar basilar edema with moderate bilateral pleural effusions IMPRESSION: Mild to moderate heart failure
--- NOTE | 2025-01-16 05:11 | XR_ITS ---
Examination: Abdomen sonogram, Limited Date and time of exam: January 16, 2025, 0813 hours INDICATIONS: Abdominal distention this week Technique: Real-time singer scale transabdominal sonographic images of the upper abdomen obtained. Findings: Mild to moderate ascites IMPRESSION: Mild to moderate ascites, no safe pocket for paracentesis
--- NOTE | 2025-01-16 05:12 | PD.EDRME ---
Rapid Medical Screening Exam RME Arrival date/time: 01/16/25 04:49 59M with history of CAD w/ CABG, ESRD (anuric), HTN, DM, and cirrhosis presents to ED with 1 day of SOB and epigastric pain. Patient had outpatient para scheduled for today, but couldn't wait. Patient states he's been going to his dialysis sessions and has been taking his prescribed meds. Patient denies URI symptoms and N/V. Chief Complaint: Abdominal Pain Vital signs: Vital Signs Temperature 98.4 F 01/16/25 04:58 Pulse Rate 65 01/16/25 04:58 Respiratory Rate 18 01/16/25 04:58 Blood Pressure 166/85 H 01/16/25 04:58 Pulse Oximetry (%) 95 01/16/25 04:58 Oxygen Delivery Method Room Air 01/16/25 04:58 Exam: Clear lungs. Normal WOB. No focal ab tenderness, but ab is very distended. No BLE swelling. Clinical Impression: Ascites vs ab pain vs PNA vs CHF exacerbation vs biliary disease vs pancreatitis
--- NOTE | 2025-01-16 05:17 | XR_ITS ---
Examination: CT abdomen and pelvis without contrast. Coronal 3-D reconstructions. Sagittal 2-D reconstructions. Date and time of exam: January 16, 2025, 0533 hours, comparison September 23, 2023 INDICATIONS: Epigastric pain beginning 2 weeks ago, CTDI: vol (mGy): 5.85 DLP: (mGycm): 334 Technique: Axial images of the abdomen have been obtained, 3 mm slice thickness Intravenous contrast material has not been administered. Low dose protocols were performed. One or more of the following dose reduction techniques were used; automated exposure control, adjustment of the mA and/or KV according to patient size, use of iterative reconstruction technique. Findings: Moderate enlargement cardiac contour 15 mm nodular density which may be cavitary in the left lower lobe image 15 Prominent vascular congestion Small bilateral pleural effusions The minimal right pleural fluid may be loculated Cirrhosis, liver nodular in contour Significant ascites Cholelithiasis Spleen is not enlarged No pancreatic mass Normal adrenal glands Multiple bilateral renal calculi, the largest left kidney 5 mm, no hydronephrosis or ureteral calculi Aorta normal size No bowel obstruction Mild prostatomegaly Prominent osteopenia IMPRESSION: 15 mm nodular density which may be cavitary in the left lower lobe, consider CT chest without contrast follow-up Cirrhosis Significant ascites Mild pleural disease
[2025-01-16 06:28] LABS: Basophils # (Auto) 0.0 Thou/mm3 (0.0-0.2); Basophils % (Auto) 1 % (0-2.5); Eosinophils # (Auto) 0.2 Thou/mm3 (0.0-0.5); Eosinophils % (Auto) 4 % (0-10); Hematocrit 34.4 % (41.0-53.0); Hemoglobin 11.2 g/dL (13.5-16.0); Immature Granulocytes Auto 0.02 Thou/mm3 (0.00-0.00); Lymphocytes # (Auto) 0.5 Thou/mm3 (1.0-4.8); Lymphocytes % (Auto) 8 % (10-50); Mean Corpuscular HGB Conc 32.6 g/dl (31.0-37.0); Mean Corpuscular Hemoglobin 31.8 pg (25.0-35.0); Mean Corpuscular Volume 98 fL (80-100); Monocytes # (Auto) 0.7 Thou/mm3 (0.0-0.8); Monocytes % (Auto) 11 % (0-12); Neutrophils # (Auto) 4.4 Thou/mm3 (1.8-7.7); Neutrophils % (Auto) 76 % (37-80); Nucleated Red Blood Cell # 0.00 Thou/mm3 (0.00-0.00); Nucleated Red Blood Cell % 0 /100 WBC (0); Platelet Count 187 Thou/mm3 (140-440); RDW Standard Deviation 60.5 fL (35.1-43.9); Red Blood Count 3.52 Miln/mm3 (4.50-5.90); White Blood Count 5.9 Thou/mm3 (3.8-10.6)
[2025-01-16 06:47] LABS: INR 1.1 (0.9-1.3); Partial Thromboplastin Time 31.6 Seconds (22.0-36.0); Prothrombin Time 11.4 Seconds (9.0-12.2)
[2025-01-16 06:49] LABS: B-Type Natriuretic Peptide 2656 pg/mL (0-100)
[2025-01-16 06:53] LABS: Alanine Aminotransferase 43 U/L (10-49); Albumin, Serum 3.6 gm/dL (3.5-5.0); Albumin/Globulin Ratio 1.3 (1.2-2.2); Alkaline Phosphatase 330 U/L (46-116); Anion Gap 11 (7-16); Aspartate Amino Transferase 62 U/L (0-34); BUN/Creatinine Ratio 6 Ratio (12-20); Bilirubin,Total 0.8 mg/dL (0.3-1.2); Blood Urea Nitrogen 23 mg/dL (9-23); Calcium 8.4 mg/dL (8.3-10.6); Calcium (Corrected) 8.7 mg/dL (8.5-10.1); Carbon Dioxide 31.4 mMol/L (20.0-31.0); Chloride 97 mMol/L (98-107); Creatinine (Component) 4.1 mg/dL (0.6-1.3); Estimated Creatinine Clearance 15.4 mL/min (>60); Globulin 2.8 gm/dL (2.3-3.5); Glucose 222 mg/dL (74-106); Lipase 29 U/L (12-53); Magnesium 2.1 mg/dL (1.6-2.6); Osmolality,Calculated 288 (275-295); Potassium 3.6 mMol/L (3.4-5.1); Sodium 139 mMol/L (136-145); Total Protein 6.4 gm/dL (5.7-8.2); Troponin I < 0.020 ng/mL (0.0-0.045); eGFR 16 See Note
[2025-01-16 06:57] VITALS: PULSE 65; RESP 95
[2025-01-16] MEDS: FAMOTIDINE INJ 10 MG/ML VIAL 2 ML 20 MG IVP (07:17)
--- NOTE | 2025-01-16 07:39 | PRELIM_ITS ---
CT scan of the abdomen and pelvis without intravenous contrast (axial sections with sagittal and coronal reformats) January 16, 2025 05:33 hours Clinical History: Epigastric pain and distension. Reference is made to the prior report dated October 14, 2018. Findings: The evaluation is limited due to the absence of intravenous contrast. Small left pleural effusion. Small right loculated pleural effusion with thickened pleura. Nonobstructing bilateral renal calculi versus vascular calcifications are seen. The liver, gallbladder, pancreas, spleen and adrenals are unremarkable on this noncontrast study. No evidence of bowel obstruction. The appendix is not visualized. There is no mesenteric or retroperitoneal adenopathy. The urinary bladder is incompletely distended at the time of the examination. There is no free air. Moderate to marked ascites. A small fluid-containing umbilical hernia is present. Aortoiliac vascular calcification is noted. Moderate degenerative changes are identified in the spine. Impression: 1. Moderate to marked ascites. 2. Small left pleural effusion. 3. Small right loculated pleural effusion with thickened pleura, suggestive of pleural empyema. Recommend clinical correlation and follow-up. 4. Other findings as described above. Report Electronically Signed By: Jus Kemp 01/16/2025 7:38:56 AM [EST]
[2025-01-16 08:21] VITALS: BP 156/88; PULSE 63; RESP 15; TEMP 36.9; O2SAT 95
[2025-01-16 11:32] VITALS: BP 169/85; PULSE 65; RESP 15; TEMP 37; O2SAT 94
--- NOTE | 2025-01-16 11:36 | PD.EDABDPN ---
ED Abdominal Pain RME/HPI General Chief Complaint: Abdominal Pain Stated complaint: EPIGASTRIC PAIN AND NAUSEA Time seen by provider: 01/16/25 06:22 Arrival date/time: 01/16/25 04:49 Limitations: no limitations RME / HPI RME / HPI narrative: 01/16/25 04:49 59M with history of CAD w/ CABG, ESRD (anuric), HTN, DM, and cirrhosis presents to ED with 1 day of SOB and epigastric pain. Patient had outpatient para scheduled for today, but couldn't wait. Patient states he's been going to his dialysis sessions and has been taking his prescribed meds. Patient denies URI symptoms and N/V. DR. MOORE MAIN ED EVALUATION: 59 year old male with history of CAD s/p CABG, CHF, ESRD on HD, hypertension, diabetes, hyperlipidemia presents to the ED for evaluation of abdominal pain that woke him from sleep at 02:00 AM today. Pain described as aching in sensation, rating 6/10 in severity. Accompanied by abdomen feeling distended and some difficulty breathing. Reportedly was scheduled to have an outpatient paracentesis performed today. No other associated symptoms or complaints reported. Patient was last dialyzed yesterday. Exam: Clear lungs. Normal WOB. No focal ab tenderness, but ab is very distended. No BLE swelling. Impression: Ascites vs ab pain vs PNA vs CHF exacerbation vs biliary disease vs pancreatitis Related Data Home Medications ?Medication ?Instructions ?Recorded ?Confirmed aspirin 81 mg tablet,delayed 81 mg PO QDAY 12/05/17 01/29/24 release (Kendrick Low Dose Aspirin) furosemide 40 mg tablet 40 mg PO BID 05/01/19 01/29/24 amlodipine 5 mg tablet 10 mg PO QDAY 07/05/20 01/29/24 carvedilol 12.5 mg tablet (Coreg) 12.5 mg PO BID 07/05/20 01/29/24 atorvastatin 40 mg tablet 40 mg PO HS 02/10/21 01/29/24 insulin regular human 100 unit/mL See Rx Instructions .Route .COMPLEX 02/10/21 01/29/24 injection solution (Humulin R Regular U-100 Insulin) metolazone 2.5 mg tablet 5 mg PO QDAY 02/10/21 01/29/24 clonidine HCl 0.1 mg tablet 0.1 mg PO BID 01/29/24 01/29/24 insulin detemir U-100 100 unit/mL 45 unit subcut HS 01/29/24 01/29/24 subcutaneous solution (Levemir U-100 Insulin) isosorbide mononitrate 30 mg 30 mg PO QDAY 01/29/24 01/29/24 tablet,extended release 24 hr losartan 100 mg tablet 100 mg PO QDAY 01/29/24 01/29/24 vitamin B complex-vitamin C-folic 1 tab PO QDAY 01/29/24 01/29/24 acid 0.8 mg tablet (Emmanuelle-Florian) Allergies Allergy/AdvReac Type Severity Reaction Status Date / Time Penicillins Allergy Severe RASH,DIFF. Verified 01/16/25 05:00 BREATHING Review of Systems Review of Systems Systems Reviewed: All systems reviewed, normal except as documented Past Medical History Past Medical History NEUROLOGIC: Positive Neurological Disorders and Peripheral Neuropathy CARDIAC: Positive Cardiac Disorders, Myocardial Infarction, Hypercholesterolemia, Congestive Heart Failure, Edema and Hypertension RESPIRATORY: Positive Pulmonary Edema GASTROINTESTINAL: Positive Gastrointestinal Disorders and Gastroesophageal Reflux Disease GENITOURINARY: Positive Genitourinary Disorders, Renal Disease and Dialysis MUSCULOSKELETAL: Positive Musculoskeletal Disorders and Arthritis ENDOCRINE: Positive Endocrine Disorders and Diabetes Mellitus Type 2 HEMATOLOGIC: Positive Blood Disorders and Anemia PSYCHO/SOCIAL: Positive Anxiety OTHER HISTORY: Positive Chicken Pox Family History FAMILY HISTORY: Positive Family Cardiac Disorders and Family Surgery Surgical History SURGICAL: Positive Coronary Artery Bypass Graft, Eye Surgery and Abdominal Surgery; Negative Endocrine Surgery, Transurethral Resection, Joint Replacement, Amputation, Open Reduction Internal Fixation, Arthroscopy, Brain Shunt or Vasectomy Social History SMOKING STATUS: Never smoker SUBSTANCE USE: does not use ED Exam General Limitations: Present no limitations General appearance: Present alert and in no apparent distress Head Head exam: Present atraumatic Eye Eye exam: Present normal appearance, PERRL and EOMI ENT ENT exam: Present normal exam, normal oropharynx and mucous membranes moist Neck Neck exam: Present normal inspection, full ROM and trachea midline Chest Chest inspection: Present normal inspection and symmetric chest wall rise Respiratory Respiratory exam: Present normal lung sounds bilaterally Cardiovascular Cardiovascular exam: Present regular rate, normal rhythm and normal heart sounds Abdominal Exam Abdominal exam: Present soft, distention (ascites, +fluid wave ) and normal bowel sounds; Absent tenderness Extremities Exam Extremities exam: Present normal inspection and full ROM Back Exam Back exam: Present normal inspection and full ROM Neurological Exam Neurological exam: Present alert, oriented X3 and CN II-XII intact Psychiatric Psychiatric exam: Present normal affect and normal mood Skin Skin exam: Present warm, dry, intact and normal color Course Quality Measures none Orders Category Date Time Status [employer] NOW Care 01/16/25 06:20 Completed Continuous Pulse Oximetry NOW Care 01/16/25 06:20 Completed EKG (ED ONLY) *Do not use* NOW Care 01/16/25 05:10 Completed Insert IV NOW Care 01/16/25 05:11 Completed Insert IV NOW Care 01/16/25 06:[address] abdomen pelvis wo con Stat Exams 01/16/25 05:17 Completed EKG (ED Only) Stat Exams 01/16/25 05:10 Draft US abdomen limited Stat Exams 01/16/25 05:11 Completed XR chest 1V portable Stat Exams 01/16/25 05:11 Completed B-Type Natriuretic Peptide Stat Lab 01/16/25 05:51 Completed CBC Stat Lab 01/16/25 05:51 Completed Comprehensive Metabolic Panel Stat Lab 01/16/25 05:51 Completed Lipase Stat Lab 01/16/25 05:51 Completed Magnesium Stat Lab 01/16/25 05:51 Completed Partial Thromboplastin Time Stat Lab 01/16/25 05:51 Completed Prothrombin Time with INR Stat Lab 01/16/25 05:51 Completed Troponin I Stat Lab 01/16/25 05:51 Completed Type and Screen Stat Lab 01/16/25 05:51 Completed Famotidine Inj [Pepcid Inj] Med 01/16/25 06:22 Discontinued 20 mg IVP X1 ONE Oxygen Delivery NOW RT 01/16/25 06:20 Completed Vital Signs Vital signs: Vital Signs Temperature 98.4 F 01/16/25 04:58 Pulse Rate 65 01/16/25 04:58 Respiratory Rate 18 01/16/25 04:58 Blood Pressure 166/85 H 01/16/25 04:58 Pulse Oximetry (%) 95 01/16/25 04:58 Oxygen Delivery Method Room Air 01/16/25 04:58 Pulse ox is 95% on room air which is adequate. Abdominal Pain MDM MDM Narrative MDM Narrative:: Jazmyne Hanna am scribing for and in the presence of Dr. Moore. Patient data External records reviewed:: [facility] previous records Clinical information provided by:: patient Social determinants that could affect healthcare access:: none Patient has the following chronic illnesses:: CAD s/p CABG, CHF, ESRD on HD, hypertension, diabetes, hyperlipidemia How is presenting disease/condition affected by chronic disease/condition?: exacerbated by Evaluation data The following diagnostics were reviewed and interpreted by me:: lab results, radiology exam(s) and EKG tracing(s) (EKG @ 05:17 AM, interpreted by me, normal sinus rhythm, rate 63, incomplete right bundle branch block, no STEMI. ) Lab and/or radiology exams considered but not ordered:: None Interpretation Summary: Ordering Physician: Harrison Ball PA-C Date of Service: 01/16/25 Procedure(s): US abdomen limited Accession Number(s): [id number] cc: Chad Elder MD; Harrison Ball PA-C; Alessandra Walker PA-C~ Examination: Abdomen sonogram, Limited Date and time of exam: January 16, 2025, 0813 hours INDICATIONS: Abdominal distention this week Technique: Real-time singer scale transabdominal sonographic images of the upper abdomen obtained. Findings: Mild to moderate ascites IMPRESSION: Mild to moderate ascites, no safe pocket for paracentesis Dictated By: Chad Elder MD Signed By: <Electronically signed by Chad Elder MD in OV> 01/16/25 0935 Ordering Physician: Harrison Ball PA-C Date of Service: 01/16/25 Procedure(s): XR chest 1V portable Accession Number(s): [id number] cc: Chad Elder MD; Harrison Ball PA-C; Alessandra Walker PA-C~ EXAMINATION: PA chest single view TECHNIQUE: Upright PA chest single view Date and time: January 16, 2025, 0518 hours, comparison 07/28/2024 INDICATIONS:*Chest pain today FINDINGS: Mild to moderate heart failure. Mild to moderate enlargement cardiac contour. CABG. Prominent vascular congestion including central vascular engorgement. Perihilar basilar edema with moderate bilateral pleural effusions IMPRESSION: Mild to moderate heart failure Dictated By: Chad Elder MD Signed By: <Electronically signed by Chad Elder MD in OV> 01/16/25 0719 Ordering Physician: Harrison Blal PA-C Date of Service: 01/16/25 Procedure(s): CT abdomen pelvis wo [facility] Accession Number(s): [id number] cc: Chad Elder MD; Harrison Ball PA-C; Alessandra Walker PA-C~ Examination: CT abdomen and pelvis without contrast. Coronal 3-D reconstructions. Sagittal 2-D reconstructions. Date and time of exam: January 16, 2025, 0533 hours, comparison September 23, 2023 INDICATIONS: Epigastric pain beginning 2 weeks ago, CTDI: vol (mGy): 5.85 DLP: (mGycm): 334 Technique: Axial images of the abdomen have been obtained, 3 mm slice thickness Intravenous contrast material has not been administered. Low dose protocols were performed. One or more of the following dose reduction techniques were used; automated exposure control, adjustment of the mA and/or KV according to patient size, use of iterative reconstruction technique. Findings: Moderate enlargement cardiac contour 15 mm nodular density which may be cavitary in the left lower lobe image 15 Prominent vascular congestion Small bilateral pleural effusions The minimal right pleural fluid may be loculated Cirrhosis, liver nodular in contour Significant ascites Cholelithiasis Spleen is not enlarged No pancreatic mass Normal adrenal glands Multiple bilateral renal calculi, the largest left kidney 5 mm, no hydronephrosis or ureteral calculi Aorta normal size No bowel obstruction Mild prostatomegaly Prominent osteopenia IMPRESSION: 15 mm nodular density which may be cavitary in the left lower lobe, consider CT chest without contrast follow-up Cirrhosis Significant ascites Mild pleural disease Dictated By: Chad Elder MD Signed By: <Electronically signed by Chad Elder MD in OV> 01/16/25 0807 Medications / Prescriptions Medications or Prescriptions considered but not ordered:: None Medication administrations:: Medication Administration History Discontinued Medications Famotidine (Famotidine Inj 10 Mg/Ml Vial 2 Ml) 20 mg IVP X1 ONE Stop: 01/16/25 06:23 Last Admin: 01/16/25 07:17 Dose: 20 mg Documented By: DAYSI See above Consultations Consultation(s) initiated? (list below): Yes Consultation #1 (Physician, Specialty, Details): I spoke with IR for paracentesis today Diagnosis Differential diagnosis abdominal pain: abdominal pain, gastroenteritis, small bowel obstruction and other (ascites ) Most likely diagnosis given after review of the tests above:: Ascites Admission Indicated Admission indicated?: not indicated Explain why admission is indicated or not indicated:: With no condition needing emergent intervention, there was no indication for admission. Admission Request Was there a request for admission?: No Disposition Plan Disposition Plan: Discharge Discharge Attestation Discharge Attestation: The patient and all family members were given an opportunity to ask questions and understood the discharge instructions. Discharge instructions specifically effects, indications for sooner follow up or return to the emergency department, and the expected course of current diagnosis. Patient condition: Stable Discharge Plan Plan Patient Disposition: HOME (Self Care) Patient condition on transfer: Stable Prescriptions/Referrals Prescriptions/Med Rec: No Action furosemide 40 mg Tablet 40 mg PO BID aspirin [Kendrick Low Dose Aspirin] 81 mg Tablet,Delayed Release (Dr/Ec) 81 mg PO QDAY carvedilol [Coreg] 12.5 mg Tablet 12.5 mg PO BID amlodipine 5 mg Tablet 10 mg PO QDAY metolazone 2.5 mg tablet 5 mg PO QDAY atorvastatin 40 mg tablet 40 mg PO HS Humulin R Regular U-100 Insuln 100 unit/mL Solution See Rx Instructions .ROUTE .COMPLEX Rx Instructions: sliding scale twice a day per patient (breakfast and lunch) clonidine HCl 0.1 mg tablet 0.1 mg PO BID Patient Comments: TAKE 1 TABLET BY MOUTH TWICE DAILY isosorbide mononitrate 30 mg tablet extended release 24 hr 30 mg PO QDAY Patient Comments: TAKE 1 TABLET BY MOUTH EVERY DAY IN THE MORNING Emmanuelle-Florian 0.8 mg tablet 1 tab PO QDAY Patient Comments: TAKE 1 TABLET BY MOUTH EVERY DAY losartan 100 mg tablet 100 mg PO QDAY Patient Comments: TAKE 1 TABLET BY MOUTH EVERY DAY Levemir U-100 Insulin 100 unit/mL solution 45 unit SUBCUT HS Patient Comments: INJECT 45 UNITS SUBCUTANEOUSLY ONCE A DAY FOR DIABETES Referrals: Alessandra Walker PA-C [Primary Care Provider, Family Practice] - In 1 week Problem List Clinical Impression: Ascites Patient/Caregiver Discharge Instructions Discharge Activity: activity as tolerated Education Materials: ED Ascites Additional Instructions: Follow-up with your regular doctor and also with your dialysis center as scheduled. Continue your usual medications. Print Language: Swedish Stand Alone Forms: Sara Award Info., Patient Portal Info Letter
== END 2025-01-16 11:48 | disposition home or self-care (01) ==
PROVIDERS: Physician Assistant; Emergency Provider Family Medicine; PCP Physician Assistant
DX: R18.8 Other ascites (principal); E11.22 Type 2 diabetes mellitus with diabetic chronic kidney disease; E78.5 Hyperlipidemia, unspecified; I13.2 Hypertensive heart and chronic kidney disease with heart failure and with stage 5 chronic kidney disease, or end stage renal disease; I25.10 Atherosclerotic heart disease of native coronary artery without angina pectoris; K74.60 Unspecified cirrhosis of liver; N18.6 End stage renal disease; Z95.1 Presence of aortocoronary bypass graft
CPT/HCPCS: 36415; 71045; 74176; 76705; 80053; 83690; 83735; 83880; 84484; 85025; 85610; 85730; 86850; 86900; 86901; 93005; 96374; 99284; J3490

== ENCOUNTER 2025-02-20 11:48 | Emergency (ER) | payer MEDICARE, MEDICAID, SELFPAY ==
--- NOTE | 2025-02-20 | XR_ITS ---
Examination: MRI ankle without contrast Date and time of exam: February 20, 2025, 1408 hours INDICATIONS: Patient walking, heard a pop in the heel area followed by pain, cannot bear weight on the ankle today Technique: Multiple MRI axial and sagittal sections ankle Sagittal T2-weighted images, TR 3500, TE 118 T1 weighted transverse sections, TR 688 T8.5, T2-weighted sagittal sections T1 weighted sagittal sections TR 621, TE 30 T2 axial sections, TR 4, 190, TE 84. Findings: Acute fracture line posterior calcaneus, extending to the posterior surface of the calcaneus sagittal image 14 No displacement Marked marrow edema Extensive edema in the subcutaneous fatty tissue There is a significant partial tear of the Achilles tendon at its calcaneal insertion, sagittal image 14 Talus calcaneus cuboid and cuneiforms intact Flexor tendons intact Mild sprain anterior talofibular ligament Extensor tendons intact IMPRESSION: Nondisplaced fracture of the calcaneus Significant partial tear of the Achilles tendon at its calcaneal insertion
[2025-02-20 11:49] VITALS: BMI 23.0
[2025-02-20 12:23] VITALS: BP 192/89; PULSE 67; RESP 18; TEMP 36.9; O2SAT 95
--- NOTE | 2025-02-20 12:37 | PD.EDANKLE ---
Lower Extremity Injury RME/HPI General Chief Complaint: Ankle/Foot Injury Stated Complaint: HEARD POP IN LEFT FOOT Time Seen by Provider: 02/20/25 11:52 Arrival date/time: 02/20/25 11:48 59-year-old male patient with significant history of hypertension, diabetes mellitus came in for evaluation regarding right posterior ankle pain. Patient was walking in the stairs when he suddenly heard a pop resulting in the pain to the posterior ankle, with difficulty ambulating due to pain. Patient also complained of inability to plantarflex the foot. Patient denies any other complaints no medication was taken prior to ER visit. Incident happened 1 hour prior to ER visit. Related Data Home Medications ?Medication ?Instructions ?Recorded ?Confirmed aspirin 81 mg tablet,delayed 81 mg PO QDAY 12/05/17 01/29/24 release (Kendrick Low Dose Aspirin) furosemide 40 mg tablet 40 mg PO BID 05/01/19 01/29/24 amlodipine 5 mg tablet 10 mg PO QDAY 07/05/20 01/29/24 carvedilol 12.5 mg tablet (Coreg) 12.5 mg PO BID 07/05/20 01/29/24 atorvastatin 40 mg tablet 40 mg PO HS 02/10/21 01/29/24 insulin regular human 100 unit/mL See Rx Instructions .Route .COMPLEX 02/10/21 01/29/24 injection solution (Humulin R Regular U-100 Insulin) metolazone 2.5 mg tablet 5 mg PO QDAY 02/10/21 01/29/24 clonidine HCl 0.1 mg tablet 0.1 mg PO BID 01/29/24 01/29/24 insulin detemir U-100 100 unit/mL 45 unit subcut HS 01/29/24 01/29/24 subcutaneous solution (Levemir U-100 Insulin) isosorbide mononitrate 30 mg 30 mg PO QDAY 01/29/24 01/29/24 tablet,extended release 24 hr losartan 100 mg tablet 100 mg PO QDAY 01/29/24 01/29/24 vitamin B complex-vitamin C-folic 1 tab PO QDAY 01/29/24 01/29/24 acid 0.8 mg tablet (Emmanuelle-Florian) Previous Rx's ?Medication ?Instructions ?Recorded acetaminophen 300 mg-codeine 30 mg 1 tab PO Q8H PRN pain #20 tabs 02/20/25 tablet acetaminophen 300 mg-codeine 30 mg 1 tab PO Q8H PRN pain #20 tabs 02/20/25 tablet Allergies Allergy/AdvReac Type Severity Reaction Status Date / Time Penicillins Allergy Severe RASH,DIFF. Verified 02/20/25 11:51 BREATHING Review of Systems Review of Systems Narrative Review of Systems: Review of system reviewed and within normal limits except mentioned in HPI ED Exam Narrative Physical exam: VITAL SIGNS: Reviewed. GENERAL APPEARANCE: Alert and interactive, follows commands, no acute distress, HEAD AND FACE: Non-traumatic. ENT: PERRL, pink conjunctivitis, eyelid no trauma, Mucous membrane moist. NECK: Supple, nontender, no nuchal rigidity. CHEST: No tenderness, no crepitus, no paradoxical movement, no retractions. LUNGS: Clear, well ventilated, symmetric, no rales, no wheezing, no ronchi, no stridor, good breath sounds bilaterally. HEART: Regular rate, regular rhythm, no murmur, no gallops. ABDOMEN: Soft, positive bowel sounds, nondistended, no guarding, nontender, no rebound, no masses, RECTAL: Deferred. GENITAL: Deferred. NEUROLOGICAL: Gross motor function intact sensory function intact, Appropriate for age. MUSCULOSKELETAL: low back nontender, full range of motion. EXTREMITIES: Palpable gap noted on the Achilles tendon, with tenderness, positive Lloyd test SKIN: Color pink, dry, no rash, no lacerations, no abrasions, no contusions. LYMPHATICS: Deferred. Course Quality Measures none Orders Category Date Time Status Crutches .NOW Care 02/20/25 12:43 Completed MRI Screening NOW Care 02/20/25 12:43 Completed MR ankle LT wo con Stat Exams 02/20/25 Completed Ketorolac Inj [Toradol Inj] Med 02/20/25 12:43 Discontinued 30 mg IM X1 ONE Vital Signs Vital signs: Vital Signs Temperature 98.4 F 02/20/25 12:23 Pulse Rate 67 02/20/25 12:23 Respiratory Rate 18 02/20/25 12:23 Blood Pressure 192/89 H 02/20/25 12:23 Pulse Oximetry (%) 95 02/20/25 12:23 Oxygen Delivery Method Room Air 02/20/25 12:23 Extremity Injury, Lower MDM Narrative MDM Narrative:: 59-year-old male patient with significant history of hypertension, diabetes mellitus came in for evaluation regarding right posterior ankle pain. Patient was walking in the stairs when he suddenly heard a pop resulting in the pain to the posterior ankle, with difficulty ambulating due to pain. Patient also complained of inability to plantarflex the foot. Patient denies any other complaints no medication was taken prior to ER visit. Incident happened 1 hour prior to ER visit. MRI of the ankle showed Nondisplaced fracture of the calcaneus Significant partial tear of the Achilles tendon at its calcaneal insertion Equinus splint applied by me, distal neurovascular status intact post splinting, I applied it well-padded. Patient was supplied with walker. Patient was advised to follow-up closely with PCP and for referral to orthopedic surgeon for definitive management of the partial tear of the Achilles tendon and nondisplaced fracture of the calcaneus He is stable for charged home Patient data External records reviewed:: None Clinical information provided by:: patient Social determinants that could affect healthcare access:: none Patient has the following chronic illnesses:: ESRD How is presenting disease/condition affected by chronic disease/condition?: exacerbated by Evaluation data The following diagnostics were reviewed and interpreted by me:: lab results and radiology exam(s) Lab and/or radiology exams considered but not ordered:: None Interpretation Summary: See above Medications / Prescriptions Medications or Prescriptions considered but not ordered:: None Medication administrations:: Medication Administration History Discontinued Medications Ketorolac Tromethamine (Ketorolac Inj 30 Mg/Ml Vial) 30 mg IM X1 ONE Stop: 02/20/25 12:44 Last Admin: 02/20/25 13:30 Dose: 30 mg Documented By: OA Toradol Consultations Consultation(s) initiated? (list below): No Diagnosis Extremity Injury, Lower Differential Diagnosis: ankle sprain and strain and ankle fracture Most likely diagnosis given after review of the tests above:: Calcaneus fracture, partial tear of Achilles tendon Admission Indicated Admission indicated?: not indicated Admission Request Was there a request for admission?: No Disposition Plan Disposition Plan: Discharge Discharge Attestation Discharge Attestation: The patient and all family members were given an opportunity to ask questions and understood the discharge instructions. Discharge instructions specifically effects, indications for sooner follow up or return to the emergency department, and the expected course of current diagnosis. Patient condition: Stable Discharge Plan Plan Patient Disposition: HOME (Self Care) Discharge Disposition comment: Stable Prescriptions/Referrals Prescriptions/Med Rec: New acetaminophen-codeine 300-30 mg tablet 1 tab PO Q8H PRN (Reason: pain) Qty: 20 0RF acetaminophen-codeine 300-30 mg tablet 1 tab PO Q8H PRN (Reason: pain) Qty: 20 0RF No Action furosemide 40 mg Tablet 40 mg PO BID aspirin [Kendrick Low Dose Aspirin] 81 mg Tablet,Delayed Release (Dr/Ec) 81 mg PO QDAY carvedilol [Coreg] 12.5 mg Tablet 12.5 mg PO BID amlodipine 5 mg Tablet 10 mg PO QDAY metolazone 2.5 mg tablet 5 mg PO QDAY atorvastatin 40 mg tablet 40 mg PO HS Humulin R Regular U-100 Insuln 100 unit/mL Solution See Rx Instructions .ROUTE .COMPLEX Rx Instructions: sliding scale twice a day per patient (breakfast and lunch) clonidine HCl 0.1 mg tablet 0.1 mg PO BID Patient Comments: TAKE 1 TABLET BY MOUTH TWICE DAILY isosorbide mononitrate 30 mg tablet extended release 24 hr 30 mg PO QDAY Patient Comments: TAKE 1 TABLET BY MOUTH EVERY DAY IN THE MORNING Emmanuelle-Florian 0.8 mg tablet 1 tab PO QDAY Patient Comments: TAKE 1 TABLET BY MOUTH EVERY DAY losartan 100 mg tablet 100 mg PO QDAY Patient Comments: TAKE 1 TABLET BY MOUTH EVERY DAY Levemir U-100 Insulin 100 unit/mL solution 45 unit SUBCUT HS Patient Comments: INJECT 45 UNITS SUBCUTANEOUSLY ONCE A DAY FOR DIABETES Referrals: Alessandra Walker PA-C [Primary Care Provider, Family Practice] - In 1 week Problem List Clinical Impression: Calcaneal fracture, Achilles tendon avulsion Patient/Caregiver Discharge Instructions Education Materials: Achilles Tendon Rupture, Calcaneus Additional Instructions: Thank you for the opportunity for serving you today. You are stable for discharged . You are advised to: Follow-up with your PCP in 1 to 2 days and ask for referral to to Ortho MD Do not remove your splint until seen by orthopedic surgeon nonweightbearing to the right lower extremity as instructed Return to ED for worsening of symptoms Increase oral fluids Take medication as prescribed Print Language: Korean Stand Alone Forms: Sara Award Info., Patient Portal Info Letter MARC/JAMAL Supervising Physician MARIANO Supervising Physician: MD Trace
[2025-02-20] MEDS: KETOROLAC INJ 30 MG/ML VIAL IM (13:30)
== END 2025-02-20 19:20 | disposition home or self-care (01) ==
PROVIDERS: Emergency Provider Family Medicine; PCP Physician Assistant
DX: S92.002A Unspecified fracture of left calcaneus, initial encounter for closed fracture (principal); X58.XXXA Exposure to other specified factors, initial encounter; Y93.01 Activity, walking, marching and hiking
CPT/HCPCS: 73721; 96372; 99283; J1885